=== PATIENT | male | born 1945 | race Caucasian/White ===

== ENCOUNTER 2016-11-23 10:46 | Outpatient (CLI) | payer OTHER | END 2016-11-23 10:47 | disposition home or self-care (01) | DX: M54.2 Cervicalgia (principal); R41.0 Disorientation, unspecified; D72.829 Elevated white blood cell count, unspecified; S00.93XA Contusion of unspecified part of head, initial encounter; W19.XXXA Unspecified fall, initial encounter ==

== ENCOUNTER 2016-11-23 13:10 | Outpatient (CLI) | payer OTHER | END 2016-11-23 13:11 | disposition home or self-care (01) | DX: S09.90XA Unspecified injury of head, initial encounter (principal); M54.2 Cervicalgia; W19.XXXA Unspecified fall, initial encounter; M47.892 Other spondylosis, cervical region; M19.011 Primary osteoarthritis, right shoulder ==

== ENCOUNTER 2016-11-23 18:11 | Inpatient (IN) | payer OTHER ==
[2016-11-23] MEDS ORDERED: SODIUM CHLORIDE 0.9% 1,000 ML IV ONE ×2 (19:24→19:25)
[2016-11-23] MEDS ORDERED: POTASSIUM CHLORIDE 20 MEQ TABLET PO STA (19:25)
[2016-11-23] MEDS ORDERED: ONDANSETRON 4 MG/2 ML VIAL IVP PRN (19:56)
[2016-11-23] MEDS ORDERED: SODIUM CHLORIDE FLUSH 0.9% 10 ML SYRINGE IVP PRN (19:56)
[2016-11-23] MEDS ORDERED: TEMAZEPAM 15 MG CAPSULE PO PRN (19:56)
[2016-11-23] MEDS ORDERED: POTASSIUM CHLORIDE 20 MEQ TABLET PO ONE (19:59)
[2016-11-23] MEDS ORDERED: HYDROcod/ACETAM 5/325 MG TABLET PO PRN (20:03)
[2016-11-23] MEDS ORDERED: ACETAMINOPHEN 325 MG TABLET PO PRN (20:03)
[2016-11-23] MEDS: METOPROLOL SUCCINATE 50 MG TABLET PO SCH (21:55)
[2016-11-23] MEDS: SODIUM CHLORIDE 0.9% 1,000 ML IV SCH (21:55)
[2016-11-23] MEDS: SODIUM CHLORIDE FLUSH 0.9% 10 ML SYRINGE IVP SCH (22:39)
[2016-11-24] MEDS: SODIUM CHLORIDE FLUSH 0.9% 10 ML SYRINGE IVP SCH ×3 (05:04→20:05)
[2016-11-24] MEDS: ALLOPURINOL 100 MG TABLET PO SCH (08:09)
[2016-11-24] MEDS: ATORVASTATIN 40 MG TABLET PO SCH (08:09)
[2016-11-24] MEDS: LORATADINE 10 MG TABLET PO SCH (08:10)
[2016-11-24] MEDS: POLYETHYLENE GLYCOL 3350 17 GM PACKET PO SCH (08:10)
[2016-11-24] MEDS: SODIUM CHLORIDE 0.9% 1,000 ML IV SCH (08:10)
[2016-11-24] MEDS: METOPROLOL SUCCINATE 50 MG TABLET PO SCH ×2 (08:10→20:05)
[2016-11-24] MEDS ORDERED: MAGNESIUM SULFATE 1 GM in SODIUM CHLORIDE 0.9% 50 ML IV ONE (12:10)
[2016-11-24] MEDS ORDERED: POTASSIUM CHLORIDE 20 MEQ TABLET PO STA (12:11)
[2016-11-24] MEDS: POTASSIUM CHLORIDE 20 MEQ TABLET PO STA ×2 (13:21→13:23)
[2016-11-25] MEDS: SODIUM CHLORIDE 0.9% 1,000 ML IV SCH ×2 (04:47→06:02)
[2016-11-25] MEDS: SODIUM CHLORIDE FLUSH 0.9% 10 ML SYRINGE IVP SCH ×2 (04:47→07:35)
[2016-11-25] MEDS: ALLOPURINOL 100 MG TABLET PO SCH (07:34)
[2016-11-25] MEDS: ATORVASTATIN 40 MG TABLET PO SCH (07:34)
[2016-11-25] MEDS: POLYETHYLENE GLYCOL 3350 17 GM PACKET PO SCH ×2 (07:35→07:44)
[2016-11-25] MEDS: LORATADINE 10 MG TABLET PO SCH (07:35)
[2016-11-25] MEDS: METOPROLOL SUCCINATE 50 MG TABLET PO SCH (07:35)
[2016-11-25] MEDS ORDERED: MULTIVITAMIN 10 ML, FOLIC ACID INJ 1 MG, THIAMINE INJ 100 MG, MAGNESIUM SULFATE 2 GM in... IV SCH ×5 (09:00)
== END 2016-11-25 10:55 | disposition home or self-care (01) | DRG 565 ==
DX: T79.6XXA Traumatic ischemia of muscle, initial encounter (principal); N17.9 Acute kidney failure, unspecified; I11.9 Hypertensive heart disease without heart failure; F10.10 Alcohol abuse, uncomplicated; I25.10 Atherosclerotic heart disease of native coronary artery without angina pectoris; S09.90XA Unspecified injury of head, initial encounter; S01.81XA Laceration without foreign body of other part of head, initial encounter; S61.411A Laceration without foreign body of right hand, initial encounter; W01.0XXA Fall on same level from slipping, tripping and stumbling without subsequent striking against object, initial encounter; T14.90 Injury, unspecified; Y93.89 Activity, other specified; Y92.015 Private garage of single-family (private) house as the place of occurrence of the external cause; Y99.8 Other external cause status; R35.1 Nocturia; E78.5 Hyperlipidemia, unspecified; Z95.5 Presence of coronary angioplasty implant and graft; Z87.891 Personal history of nicotine dependence; I25.2 Old myocardial infarction; Z95.0 Presence of cardiac pacemaker; Z87.820 Personal history of traumatic brain injury; S00.93XA Contusion of unspecified part of head, initial encounter; M54.2 Cervicalgia; R41.0 Disorientation, unspecified; D72.829 Elevated white blood cell count, unspecified

== ENCOUNTER 2016-11-28 16:03 | Outpatient (CLI) | payer OTHER | END 2016-11-28 16:04 | DX: M62.82 Rhabdomyolysis (principal); E87.6 Hypokalemia; N18.9 Chronic kidney disease, unspecified ==

== ENCOUNTER 2018-09-02 08:00 | Outpatient (CLI) | payer OTHER ==
[2018-09-02 11:30] LABS: BASOPHILS # (AUTO) 0.1 10^3/uL (0.0-0.1); BASOPHILS % (AUTO) 0.7 %; EOSINOPHILS # (AUTO) 0.5 10^3/uL (0.0-0.7); EOSINOPHILS % (AUTO) 5.3 %; HGB - HEMOGLOBIN 15.5 g/dL (14.0-18.0); LYMPHOCYTES # (AUTO) 1.8 10^3/uL (1.5-3.5); LYMPHOCYTES % (AUTO) 20.1 %; MEAN CORPUSCULAR HEMOGLOBIN 34.7 pg (27.0-31.0); MEAN CORPUSCULAR HGB CONC 34.4 g/dL (32.0-36.0); MEAN CORPUSCULAR VOLUME 100.8 fL (80.0-94.0); MEAN PLATELET VOLUME 10.3 fL (7.4-11.4); MONOCYTES # (AUTO) 0.6 10^3/uL (0.0-1.0); NEUTROPHILS # (AUTO) 5.8 10^3/uL (1.5-6.6); NEUTROPHILS % (AUTO) 66.9 %; PLT - PLATELET COUNT 207 10^3/uL (130-450); RED BLOOD COUNT 4.46 10^6/uL (4.70-6.10); RED CELL DISTRIBUTION WIDTH 15.2 % (12.0-15.0); WHITE BLOOD COUNT 8.8 x10^3/uL (4.8-10.8)
[2018-09-02 11:47] LABS: ALBUMIN 3.9 g/dL (3.2-5.5); ALBUMIN/GLOBULIN RATIO 1.1 (1.0-2.2); ALKALINE PHOSPHATASE 59 IU/L (42-121); ALT ALANINE AMINOTRANSFERASE 27 IU/L (10-60); AST ASPARTATE AMINOTRANSFERASE 34 IU/L (10-42); BILIRUBIN,TOTAL 1.5 mg/dL (0.2-1.0); BUN - BLOOD UREA NITROGEN 16 mg/dL (6-20); CALCIUM 8.6 mg/dL (8.5-10.3); CARBON DIOXIDE - CO2 29 mmol/L (21-32); CHLORIDE 100 mmol/L (101-111); CHOL/HDL RATIO 3.9 (<5.0); CHOLESTEROL 181 mg/dL; GFR - MDRD 73 (>89); GLUCOSE 106 mg/dL (70-100); HDL CHOLESTEROL 47 mg/dL; LDL CHOLESTEROL,CALCULATED 95 mg/dL; SODIUM 139 mmol/L (135-145); TOTAL PROTEIN 7.3 g/dL (6.7-8.2); URIC ACID 10.2 mg/dL (2.6-7.2); VLDL CHOLESTEROL 39 mg/dL
[2018-09-02 12:31] LABS: HB2 TOTAL 16.1 g/dL; HEMOGLOBIN A1C 0.62 g/dL; HEMOGLOBIN A1C % 5.7 % (4.6-6.2)
== END 2018-09-02 23:59 | disposition home or self-care (01) ==
LOC: LAB.R 08:00
PROVIDERS: ATTEND Internal Medicine
DX: R41.89 Other symptoms and signs involving cognitive functions and awareness (principal); E78.5 Hyperlipidemia, unspecified; E88.81 Metabolic syndrome and other insulin resistance; M10.9 Gout, unspecified; I25.10 Atherosclerotic heart disease of native coronary artery without angina pectoris; Z12.5 Encounter for screening for malignant neoplasm of prostate; Z79.899 Other long term (current) drug therapy
CPT/HCPCS: 80053; 80061; 83036; 83721; 84153; 84550; 85025

== ENCOUNTER 2018-10-03 14:11 | Outpatient (CLI) | payer OTHER | END 2018-10-03 14:12 | disposition critical access hospital (66) | LOC: EMS 14:11 | PROVIDERS: ATTEND Surgery | DX: S01.91XA Laceration without foreign body of unspecified part of head, initial encounter (principal); W18.39XA Other fall on same level, initial encounter; Y93.89 Activity, other specified; Y92.512 Supermarket, store or market as the place of occurrence of the external cause | CPT/HCPCS: A0425; A0429 ==

== ENCOUNTER 2018-10-03 14:26 | Emergency (ER) | payer OTHER ==
[2018-10-03] MEDS ORDERED: LIDOCAINE-EPINEPH-TETRACAINE 3 ML SYRINGE TOP STA (14:32)
[2018-10-03] MEDS ORDERED: TETANUS/DIPHTHERIA/PERTUSSIS 0.5 ML SYRINGE IM ONE (14:32)
--- NOTE | 2018-10-03 14:36 | ED Physician Documentation ---
PD HPI Fall - Stated complaint Stated Complaint: FALL - History obtained from History obtained from: Patient - History of Present Illness Mechanism of injury: Tripped, Slipped Fall distance: Standing position Timing - onset: Today Injury(ies) location: Head, Neck. No: Face, Ear, Chest, Abdomen, Back, Right Upper Extremity, Left Uppper Extremity, Right Lower Extremity, Left Lower Extremity, Right Hand, Left Hand, Right Foot, Left Foot Severity Comments: moderate Quality of pain: Pain, Throbbing Associated symptoms: Neck pain. No: LOC, AMS, Amnesia, Seizures, Ear drainage, Nasal drainage, Weakness, Paresthesias, Nausea / vomiting Symptoms improve with: Rest Worsens with: Movement Contributing factors: Anticoagulated Similar symptoms before: No diagnosis Recently seen: Not recently seen - Additional information Additional information: 73-year-old male tripped and slipped striking the back of his head and sustained a small laceration on the back of his head. The patient denies loss of consciousness or injury to his chest, abdomen, pelvis or extremities. Review of Systems Constitutional: denies: Fever, Fatigue Eyes: denies: Photophobia, Discharge Ears: denies: Ear pain Nose: denies: Congestion Throat: denies: Sore throat Cardiac: denies: Chest pain / pressure Respiratory: denies: Cough GI: denies: Abdominal Pain : denies: Dysuria Skin: reports: Laceration (s) Musculoskeletal: reports: Neck pain Neurologic: reports: Head injury. denies: Generalized weakness, Confused PD PAST MEDICAL HISTORY - Past Medical History Cardiovascular: Hypertension, High cholesterol, Coronary artery disease, [place] - Past Surgical History Past Surgical History: Yes General: Appendectomy Cardiovascular: Coronary stent, Pacemaker - Present Medications Home Medications: Ambulatory Orders Medication Instructions Recorded Confirmed Aspirin [Aspir-Eleanor] 325 mg PO DAILY 05/05/13 11/24/16 Atorvastatin Calcium [Lipitor] 80 mg PO DAILY 05/05/13 11/24/16 Metoprolol Tartrate [Lopressor] 25 mg PO BID 11/24/16 11/24/16 Thiamine [Vitamin B-1] 100 mg PO DAILY #1 bottle 11/25/16 hydroCHLOROthiazide 10/03/18 [Hydrochlorothiazide] - Allergies Allergies/Adverse Reactions: Allergies Allergy/AdvReac Type Severity Reaction Status Date / Time JEFFREY Inhibitors Allergy Intermediate Rash Verified 11/23/16 18:25 enalapril [Enalapril] Allergy Rash Verified 11/23/16 18:25 - Social History Does the pt smoke?: No Smoking Status: Never smoker Does the pt drink ETOH?: Yes Does the pt have substance abuse?: No - Immunizations Immunizations are current?: Yes PD ED PE NORMAL - General General: Alert and oriented X 3, No acute distress - HEENT HEENT: PERRL, EOMI, Ears normal - Neck Neck: Other (Tenderness) - Cardiac Cardiac: RRR, Strong equal pulses - Respiratory Respiratory: No respiratory distress, Clear bilaterally - Abdomen Abdomen: Soft, Non tender - Derm Derm: Normal color - Extremities Extremities: No deformity, No tenderness to palpate, Normal ROM s pain - Neuro Neuro: Alert and oriented X 3, educational technology specialist 2-12 intact, No motor deficit, Normal speech - Psych Psych: Normal mood PD ED PE EXPANDED - HEENT HEENT: Head injury HEENT Visual: 1 - laceration Results - Vitals Vitals: Vital Signs - 24 hr 10/03/18 14:28 Temperature 36.4 C L Heart Rate 69 Respiratory 14 Rate O2 Saturation 95 Oxygen O2 Source Room air - Labs Labs: Laboratory Tests 10/03/18 10/03/18 14:45 14:45 PT 11.8 INR 1.1 Sodium 139 Potassium 3.4 L Chloride 101 Carbon Dioxide 26 Anion Gap 12.0 BUN 15 Creatinine 1.1 Estimated GFR (MDRD) 65 L Glucose 113 H Calcium 8.6 - Rads (name of study) CT head/neck Radiology: Final report received, See rad report (IMPRESSION: Degenerative changes. No acute disease. IMPRESSION: Generalized age-related cortical atrophic changes without evidence of acute intracranial abnormality. ) Procedures - Laceration (location) Scalp Length in cm: 1 Wound type: Linear Neurovascular status: Sensory intact, Motor intact, Vascular intact Anesthesia: LET Wound Preparation: Wound explored, To the base. No: FB identified, FB removed Skin layer closure: Erick Other: Patient tolerated well, No complications, Tetanus booster given Complexity: Simple PD MEDICAL DECISION MAKING - ED course ED course: No skull fracture or intracranial hemorrhage or cervical spine fracture and the patient appears appropriate for discharge home at this point and his laceration was repaired with erick. The patient We will have his sutures removed in 7 days. The patient will return to the emergency department for any worsening or any concerns Departure - Departure Disposition: 01 Home, Self Care Clinical Impression: Head injury Qualifiers: Encounter type: initial encounter Qualified Code(s): S09.90XA - Unspecified injury of head, initial encounter Scalp laceration Qualifiers: Encounter type: initial encounter Qualified Code(s): S01.01XA - Laceration without foreign body of scalp, initial encounter Cervical strain, acute Qualifiers: Encounter type: initial encounter Qualified Code(s): S16.1XXA - Strain of muscle, fascia and tendon at neck level, initial encounter Condition: Good Instructions: ED Head Injury Closed, ED Laceration All Follow-Up: James Millan MD [Primary Care Provider] - Within 1 week (Please have your erick removed in 7 days) Comments: Please return to the emergency department for any worsening or any concerns
[2018-10-03 14:57] LABS: INR 1.1 (0.8-1.2); PT - PROTHROMBIN TIME 11.8 secs (9.9-12.6)
[2018-10-03 14:58] LABS: CALCIUM 8.6 mg/dL (8.5-10.3); CREATININE 1.1 mg/dL (0.6-1.2)
--- NOTE | 2018-10-03 15:30 | CT Report ---
Reason: fall, head injury Procedure Date: 10/03/2018 Accession Number: [id number] / [id number] Procedure: CT - Head W/O CPT Code: FULL RESULT: EXAM: CT HEAD EXAM DATE: 10/03/2018 03:03 PM. CLINICAL HISTORY: Fall, head injury. COMPARISON: HEAD W/O 11/23/2016 1:36 PM. TECHNIQUE: Multiaxial CT images were obtained from the foramen magnum to the vertex. Reformats: Sagittal and coronal. IV contrast: None. In accordance with CT protocol optimization, one or more of the following dose reduction techniques were utilized for this exam: automated exposure control, adjustment of mA and/or KV based on patient size, or use of iterative reconstructive technique. FINDINGS: Parenchyma: No intraparenchymal hemorrhage. No evidence of mass, midline shift, or CT findings of acute infarction. Campbell-white differentiation is distinct. Diffuse chronic microangiopathic white matter changes. Extraaxial Spaces: Normal for age. No subdural or epidural collections. Ventricles: The ventricles and cortical sulci are enlarged, consistent with age-related tissue loss. Sinuses and orbits: Imaged paranasal sinuses, orbits, and mastoids show no significant abnormality. Bones: Old frontal emy holes. Otherwise unremarkable. Other: None. IMPRESSION: Generalized age-related cortical atrophic changes without evidence of acute intracranial abnormality. RADIA
--- NOTE | 2018-10-03 15:34 | CT Report ---
Reason: fall, head injury, neck injury Procedure Date: 10/03/2018 Accession Number: [id number] / [id number] Procedure: CT - Cervical Spine W/O CPT Code: FULL RESULT: EXAM: CT CERVICAL SPINE WITHOUT CONTRAST DATE: 10/03/2018 03:03 PM. HISTORY: Fall, head injury, neck injury. COMPARISONS: CERVICAL SPINE W/O 11/23/2016 1:39 PM. TECHNIQUE: Thin-section axial images were acquired of the cervical spine without contrast. Post-processing: Coronal and sagittal reformats. Other: None. In accordance with CT protocol optimization, one or more of the following dose reduction techniques were utilized for this exam: automated exposure control, adjustment of mA and/or KV based on patient size, or use of iterative reconstructive technique. FINDINGS: Alignment: Minimal scoliosis. No listhesis. Bones: No fracture or bone lesion. Interspace Levels/Facets: Disk space narrowing at C6-C7. Other disk spaces well preserved. Degenerative changes most marked at C2-C3 on the left, C3-C4 on the right, and C5-C6 bilaterally. Musculature: Unremarkable. Other: The paravertebral and prevertebral soft tissues are unremarkable. The lung apices are clear. IMPRESSION: Degenerative changes. No acute disease. RADIA
[2018-10-03 16:04] VITALS: BP 135/96
== END 2018-10-03 16:30 | disposition home or self-care (01) ==
LOC: EDUNIT# → ED 14:26
DX: S01.01XA Laceration without foreign body of scalp, initial encounter (principal); S09.90XA Unspecified injury of head, initial encounter; S16.1XXA Strain of muscle, fascia and tendon at neck level, initial encounter; W01.198A Fall on same level from slipping, tripping and stumbling with subsequent striking against other object, initial encounter; Y92.512 Supermarket, store or market as the place of occurrence of the external cause; I10 Essential (primary) hypertension; E78.00 Pure hypercholesterolemia, unspecified; I25.10 Atherosclerotic heart disease of native coronary artery without angina pectoris; Z95.5 Presence of coronary angioplasty implant and graft; I25.2 Old myocardial infarction; Z95.0 Presence of cardiac pacemaker; Z79.82 Long term (current) use of aspirin
CPT/HCPCS: 12001; 36415; 70450; 72125; 80048; 85610; 90471; 99283

== ENCOUNTER 2019-03-08 16:53 | Emergency (ER) | payer OTHER ==
[2019-03-08] MEDS ORDERED: LIDOCAINE-EPINEPH-TETRACAINE 3 ML SYRINGE TOP STA (17:11)
--- NOTE | 2019-03-08 17:15 | ED Physician Documentation ---
PD HPI HEAD INJURY - Stated complaint Stated Complaint: FACE LAC/GLF - Chief complaint Chief Complaint: Laceration - History obtained from History obtained from: Patient, Family () - History of Present Illness Mechanism of head injury: Fell (73-year-old gentleman with history of traumatic brain injury treated at [facility] in 2013 with bilateral blurred bur holes was drinking today. He slipped and fell and hit his face on the wall. No clear loss of consciousness. He has scrapes on the face and a scrape on the right wrist. He did not know his last tetanus shot but review of the chart shows that it was in September of this year. When asked him how much he drank today he says "all of it.") Review of Systems Ten Systems: 10 systems reviewed and negative Constitutional: reports: Reviewed and negative Nose: reports: Reviewed and negative Throat: reports: Reviewed and negative Cardiac: reports: Reviewed and negative PD PAST MEDICAL HISTORY - Past Medical History Past Medical History: Yes Cardiovascular: Hypertension, High cholesterol, Coronary artery disease, [place] Respiratory: None Neuro: Other Endocrine/Autoimmune: None GI: None : None HEENT: Chronic hearing loss Psych: None Musculoskeletal: None Derm: None Other Past Medical History: TBI - Past Surgical History Past Surgical History: Yes General: Appendectomy Cardiovascular: Coronary stent, Pacemaker - Present Medications Home Medications: Ambulatory Orders Medication Instructions Recorded Confirmed Aspirin [Aspir-Eleanor] 325 mg PO DAILY 05/05/13 03/08/19 Atorvastatin Calcium [Lipitor] 80 mg PO DAILY 05/05/13 03/08/19 Metoprolol Tartrate [Lopressor] 25 mg PO BID 11/24/16 03/08/19 hydroCHLOROthiazide 10/03/18 [Hydrochlorothiazide] Thiamine [Vitamin B-1] 03/08/19 - Allergies Allergies/Adverse Reactions: Allergies Allergy/AdvReac Type Severity Reaction Status Date / Time JEFFREY Inhibitors Allergy Intermediate Rash Verified 03/08/19 17:07 enalapril [Enalapril] Allergy Rash Verified 03/08/19 17:07 - Social History Does the pt smoke?: No Smoking Status: Never smoker Does the pt drink ETOH?: Yes Does the pt have substance abuse?: No - Immunizations Immunizations are current?: Yes - POLST Patient has POLST: No PD ED PE NORMAL - Vitals Vital signs reviewed: Yes - General General: Alert and oriented X 3, No acute distress, Other (Moderately intoxicated with slow slurred speech and smells of alcohol) - HEENT HEENT: PERRL, EOMI (with nystgmus), Other (Significant abrasions over the right side of the face and forehead especially under the right eye where there is a little flap that needs to be closed.) - Neck Neck: Supple, no meningeal sign, No bony TTP - Cardiac Cardiac: RRR, No murmur - Respiratory Respiratory: No respiratory distress, Clear bilaterally - Abdomen Abdomen: Non tender - Back Back: No CVA TTP, No spinal TTP - Derm Derm: Normal color, Warm and dry - Extremities Extremities: Other (There is a shallow abrasion over the anterior right wrist without bony tenderness or limited range of motion) - Neuro Neuro: Alert and oriented X 3, No motor deficit, No sensory deficit, Normal speech Eye Opening: Spontaneous Motor: Obeys Commands Verbal: Oriented GCS Score: 15 - Psych Psych: Normal mood Results - Vitals Vitals: Vital Signs - 24 hr 03/08/19 17:01 Temperature 36.6 C Heart Rate 55 L Respiratory 17 Rate Blood Pressure 163/88 H O2 Saturation 96 Oxygen O2 Source Room air - Labs Labs: Laboratory Tests 03/08/19 03/08/19 03/08/19 17:20 17:20 17:20 WBC 8.4 RBC 5.26 Hgb 16.4 Hct 51.4 MCV 97.7 H MCH 31.2 H MCHC 31.9 L RDW 14.5 Plt Count 177 MPV 10.6 Neut # (Auto) 4.5 Lymph # (Auto) 2.5 [place] # (Auto) 0.8 Eos # (Auto) 0.4 Baso # (Auto) 0.1 Absolute Nucleated RBC 0.00 Nucleated RBC % 0.0 PT 11.9 INR 1.1 Sodium 138 Potassium 3.8 Chloride 102 Carbon Dioxide 23 Anion Gap 13.0 BUN 17 Creatinine 1.0 Estimated GFR (MDRD) 73 L Glucose 91 Calcium 8.8 Ethyl Alcohol 110.7 - Rads (name of study) Ct Head/face/Cspine Radiology: EMP read contemporaneously (Head and C-spine show atrophy and degenerative changes. Facial CT shows a subtle nondisplaced inferior orbital wall fracture without contents) Procedures - Laceration (location) R infraorbital Length in cm: 1 Wound type: Stellate, Irregular, Flap Anesthesia: LET Wound Preparation: Irrigated copiously NS, Debrided moderately Skin layer closure: Dermabond Other: Tetanus UTD Complexity: Simple PD MEDICAL DECISION MAKING - ED course Complexity details: d/w patient, d/w family (We discussed that he is had several injuries most of which seem alcohol-related. He was uninterested in discussing this. He did not want resources for alcohol rehab. When I asked him if he drank daily he said "does a bear shit in the trejo?") ED course: 73-year-old gentleman with history of alcohol-related injuries. He fell today and has facial abrasions, one shallow laceration which was closed with skin glue. He was counseled to quit drinking but did not seem very receptive to this conversation. His also understands that the problem but has not been able to make much headway as he is a closet drinker. The CT results were discussed by phone with Dr. Moises Dixon and he will follow-up in the office with him with a copy of his CAT scan on CD. Patient had no further concerns. He was counseled on wound care. Departure - Departure Disposition: 01 Home, Self Care Clinical Impression: Abrasion, Laceration, Alcohol abuse, Fall from ground level Head injury Qualifiers: Encounter type: initial encounter Qualified Code(s): S09.90XA - Unspecified injury of head, initial encounter Cervical strain, acute Qualifiers: Encounter type: initial encounter Qualified Code(s): S16.1XXA - Strain of muscle, fascia and tendon at neck level, initial encounter Orbital floor fracture Qualifiers: Encounter type: initial encounter Fracture type: closed Laterality: right Qualified Code(s): S02.31XA - Fracture of orbital floor, right side, initial encounter for closed fracture Condition: Good Record reviewed to determine appropriate education?: Yes Health Concerns: alcohol abuse, injuries Plan of Treatment: wound care, stop alcohol, followup with facial surgeon Care Goals: wound healing Assessment: as above Instructions: ED Abrasion, ED Laceration Facial Skin Glue, ED Alcohol Abuse Follow-Up: MOISES DIXON [Physician No Access] - Within 3 Days Comments: Follow-up with the oral surgeon listed on this form, call tomorrow for an appointment. You should follow-up by the midweek. Take the copy of the CAT scan on CD with you to that appointment. Return for new worsening symptoms. There is an area under your right eye that has skin glue on it. You can wash all of the abrasions with soap and water and keep them moist with Vaseline except try to avoid Vaseline on the area with the skin glue. Do not pick at it. Return for new or worsening symptoms. As discussed I strongly encourage you to quit drinking alcohol. You have had several serious injuries that were alcohol related.
[2019-03-08 17:26] LABS: BASOPHILS # (AUTO) 0.1 10^3/uL (0.0-0.1); BASOPHILS % (AUTO) 0.8 %; EOSINOPHILS # (AUTO) 0.4 10^3/uL (0.0-0.7); EOSINOPHILS % (AUTO) 5.1 %; HGB - HEMOGLOBIN 16.4 g/dL (14.0-18.0); LYMPHOCYTES # (AUTO) 2.5 10^3/uL (1.5-3.5); LYMPHOCYTES % (AUTO) 29.5 %; MEAN CORPUSCULAR HEMOGLOBIN 31.2 pg (27.0-31.0); MEAN CORPUSCULAR HGB CONC 31.9 g/dL (32.0-36.0); MEAN CORPUSCULAR VOLUME 97.7 fL (80.0-94.0); MEAN PLATELET VOLUME 10.6 fL (7.4-11.4); MONOCYTES # (AUTO) 0.8 10^3/uL (0.0-1.0); MONOCYTES % (AUTO) 9.7 %; NEUTROPHILS # (AUTO) 4.5 10^3/uL (1.5-6.6); NEUTROPHILS % (AUTO) 54.3 %; PLT - PLATELET COUNT 177 10^3/uL (130-450); RED BLOOD COUNT 5.26 10^6/uL (4.70-6.10); RED CELL DISTRIBUTION WIDTH 14.5 % (12.0-15.0); WHITE BLOOD COUNT 8.4 x10^3/uL (4.8-10.8)
[2019-03-08 17:35] LABS: CALCIUM 8.8 mg/dL (8.5-10.3)
[2019-03-08 17:47] LABS: INR 1.1 (0.8-1.2); PT - PROTHROMBIN TIME 11.9 secs (9.9-12.6)
--- NOTE | 2019-03-08 17:59 | CT Report ---
Reason: head inj Procedure Date: 03/08/2019 Accession Number: [id number] / [id number] Procedure: CT - HEAD WO CPT Code: FULL RESULT: EXAM: CT HEAD EXAM DATE: 03/08/2019 05:42 PM. CLINICAL HISTORY: Head inj. COMPARISON: CERVICAL SPINE W/O 10/03/2018 2:50 PM HEAD W/O 11/23/2016 1:36 PM. TECHNIQUE: Multiaxial CT images were obtained from the foramen magnum to the vertex. Reformats: Sagittal and coronal. IV contrast: None. In accordance with CT protocol optimization, one or more of the following dose reduction techniques were utilized for this exam: automated exposure control, adjustment of mA and/or KV based on patient size, or use of iterative reconstructive technique. FINDINGS: Parenchyma: There is generalized parenchymal volume loss. Negative for intracranial acute hemorrhage. There is no midline shift or mass-effect. Extraaxial Spaces: No abnormal subdural or epidural hemorrhage. Ventricles: Ventricles appear enlarged but without significant interval change. Sinuses and Orbits: Imaged paranasal sinuses, orbits, and mastoids show no significant abnormality. Bones: There are findings of previous craniotomy emy holes. There is no acute fracture. Other: None. IMPRESSION: 1. 1. Negative for acute hemorrhage or mass-effect. 2. Chronic generalized cerebral volume loss. RADIA
--- NOTE | 2019-03-08 18:06 | CT Report ---
Reason: head inj Procedure Date: 03/08/2019 Accession Number: [id number] / [id number] Procedure: CT - CERVICAL SPINE WO CPT Code: FULL RESULT: EXAM: CT CERVICAL SPINE WITHOUT CONTRAST DATE: 03/08/2019 05:42 PM. HISTORY: Head inj. COMPARISONS: CERVICAL SPINE W/O 10/03/2018 2:50 PM. TECHNIQUE: Thin-section axial images were acquired of the cervical spine without contrast. Post-processing: Coronal and sagittal reformats. Other: None. In accordance with CT protocol optimization, one or more of the following dose reduction techniques were utilized for this exam: automated exposure control, adjustment of mA and/or KV based on patient size, or use of iterative reconstructive technique. FINDINGS: Alignment: There is straightening of normal cervical lordosis. No subluxation or scoliosis. Bones: There is an old healed right clavicle fracture. No acute fracture of the cervical spine. Interspace Levels/Facets: There is severe disk height loss at C6-C7 with disk calcification. There is mild to moderate disk height loss at C4-C5 and C5-C6. There is multilevel facet joint space narrowing with spurring present. No critical central spinal canal stenosis. Musculature: Musculature appears symmetric. Other: No apical pneumothorax. Trachea is midline. IMPRESSION: 1. Negative for an acute fracture or subluxation of the cervical spine. 2. Chronic severe disk height loss at C6-C7 with possible fusion appears unchanged. Multilevel facet chronic degenerative disease. RADIA
--- NOTE | 2019-03-08 18:15 | CT Report ---
Reason: head inj Procedure Date: 03/08/2019 Accession Number: [id number] / [id number] Procedure: CT - MAXILLOFACIAL WO CPT Code: FULL RESULT: EXAM: CT MAXILLOFACIAL WITHOUT CONTRAST EXAM DATE: 03/08/2019 05:42 PM. CLINICAL HISTORY: Head inj. COMPARISONS: CERVICAL SPINE W/O 10/03/2018 2:50 PM HEAD W/O 10/03/2018 2:50 PM HEAD W/O 03/08/2019 5:31 PM HEAD W/O 11/23/2016 1:36 PM. TECHNIQUE: Thin-section axial images were acquired of the face without contrast. Post-processing: Coronal and sagittal reformats. Other: None. In accordance with CT protocol optimization, one or more of the following dose reduction techniques were utilized for this exam: automated exposure control, adjustment of mA and/or KV based on patient size, or use of iterative reconstructive technique. FINDINGS: Soft Tissue: No hematoma or fluid collection visualized. There is right periorbital superficial edema. Orbits: No abnormal orbital hematoma or fluid collection. No orbital herniation. Globes appear symmetric. Bones: There is a nondisplaced fracture of the right orbital floor. There is no herniation of orbital contents. There is mild mucosal thickening in the adjacent superior wall of the right maxillary sinus. The orbital floor was not seen on previous head CTs. Temporomandibular Joints: The temporomandibular joints are symmetric and normally located. Sinuses: Normal. No mucosal thickening or fluid levels. Other: There is anterior right greater than left dural thickening, probably IMPRESSION: 1. Subtle nondisplaced right orbital floor fracture. Not seen on previous head CTs. This is a subtle fracture which could be difficult to visualize on routine head CT, however the appearance is more suggestive of acute fracture. RADIA
[2019-03-08 18:30] VITALS: BP 140/70
== END 2019-03-08 18:41 | disposition home or self-care (01) ==
LOC: ED 16:53
DX: S02.31XA Fracture of orbital floor, right side, initial encounter for closed fracture (principal); S01.111A Laceration without foreign body of right eyelid and periocular area, initial encounter; S60.811A Abrasion of right wrist, initial encounter; S00.81XA Abrasion of other part of head, initial encounter; S16.1XXA Strain of muscle, fascia and tendon at neck level, initial encounter; S09.90XA Unspecified injury of head, initial encounter; W01.198A Fall on same level from slipping, tripping and stumbling with subsequent striking against other object, initial encounter; Y93.01 Activity, walking, marching and hiking; Y92.008 Other place in unspecified non-institutional (private) residence as the place of occurrence of the external cause; F10.120 Alcohol abuse with intoxication, uncomplicated; M50.30 Other cervical disc degeneration, unspecified cervical region; I10 Essential (primary) hypertension; Z79.82 Long term (current) use of aspirin; Z87.820 Personal history of traumatic brain injury
CPT/HCPCS: 12011; 36415; 70450; 70486; 72125; 80048; 80320; 85025; 85610; 99283

== ENCOUNTER 2019-03-09 17:17 | Outpatient (CLI) | payer OTHER ==
[2019-03-09 17:52] LABS: CALCIUM 9.4 mg/dL (8.5-10.3); CREATININE 1.3 mg/dL (0.6-1.2)
== END 2019-03-09 17:18 | disposition home or self-care (01) ==
LOC: LAB 17:17
PROVIDERS: ATTEND Family Medicine
DX: I10 Essential (primary) hypertension (principal)
CPT/HCPCS: 36415; 80048

== ENCOUNTER 2019-04-22 12:33 | Outpatient (CLI) | payer OTHER ==
[2019-04-22 12:48] LABS: BASOPHILS # (AUTO) 0.1 10^3/uL (0.0-0.1); BASOPHILS % (AUTO) 0.8 %; EOSINOPHILS # (AUTO) 0.4 10^3/uL (0.0-0.7); EOSINOPHILS % (AUTO) 4.8 %; HGB - HEMOGLOBIN 16.1 g/dL (14.0-18.0); LYMPHOCYTES # (AUTO) 1.6 10^3/uL (1.5-3.5); LYMPHOCYTES % (AUTO) 18.6 %; MEAN CORPUSCULAR HEMOGLOBIN 31.8 pg (27.0-31.0); MEAN CORPUSCULAR HGB CONC 32.7 g/dL (32.0-36.0); MEAN PLATELET VOLUME 10.8 fL (7.4-11.4); MONOCYTES # (AUTO) 0.9 10^3/uL (0.0-1.0); MONOCYTES % (AUTO) 10.1 %; NEUTROPHILS # (AUTO) 5.5 10^3/uL (1.5-6.6); NEUTROPHILS % (AUTO) 65.2 %; PLT - PLATELET COUNT 184 10^3/uL (130-450); RED BLOOD COUNT 5.07 10^6/uL (4.70-6.10); RED CELL DISTRIBUTION WIDTH 14.5 % (12.0-15.0); WHITE BLOOD COUNT 8.5 x10^3/uL (4.8-10.8)
[2019-04-22 13:15] LABS: CALCIUM 9.4 mg/dL (8.5-10.3)
== END 2019-04-22 12:34 | disposition home or self-care (01) ==
LOC: LAB 12:33
PROVIDERS: ATTEND Family Medicine
DX: F07.81 Postconcussional syndrome (principal); Z79.899 Other long term (current) drug therapy
CPT/HCPCS: 36415; 80048; 80335; 81599; 85025

== ENCOUNTER 2020-12-12 08:00 | Outpatient (CLI) | payer MEDICARE, BC ==
[2020-12-12 12:34] LABS: BASOPHILS # (AUTO) 0.1 10^3/uL (0.0-0.1); BASOPHILS % (AUTO) 0.5 %; EOSINOPHILS # (AUTO) 0.2 10^3/uL (0.0-0.7); EOSINOPHILS % (AUTO) 2.3 %; HGB - HEMOGLOBIN 16.3 g/dL (14.0-18.0); LYMPHOCYTES # (AUTO) 1.6 10^3/uL (1.5-3.5); LYMPHOCYTES % (AUTO) 16.7 %; MEAN CORPUSCULAR HEMOGLOBIN 31.5 pg (27.0-31.0); MEAN CORPUSCULAR HGB CONC 32.6 g/dL (32.0-36.0); MEAN CORPUSCULAR VOLUME 96.5 fL (80.0-94.0); MEAN PLATELET VOLUME 11.3 fL (7.4-11.4); MONOCYTES # (AUTO) 0.8 10^3/uL (0.0-1.0); MONOCYTES % (AUTO) 8.1 %; NEUTROPHILS # (AUTO) 6.8 10^3/uL (1.5-6.6); NEUTROPHILS % (AUTO) 71.9 %; PLT - PLATELET COUNT 234 10^3/uL (130-450); RED BLOOD COUNT 5.18 10^6/uL (4.70-6.10); RED CELL DISTRIBUTION WIDTH 14.5 % (12.0-15.0); WHITE BLOOD COUNT 9.4 x10^3/uL (4.8-10.8)
[2020-12-12 12:42] LABS: ESTIMATED AVERAGE GLUCOSE 123 mg/dL (70-100); HEMOGLOBIN A1c% 5.9 % (4.27-6.07)
[2020-12-12 12:44] LABS: ALBUMIN 4.1 g/dL (3.2-5.5); ALBUMIN/GLOBULIN RATIO 1.1 (1.0-2.2); ALKALINE PHOSPHATASE 57 IU/L (42-121); ALT ALANINE AMINOTRANSFERASE 23 IU/L (10-60); AST ASPARTATE AMINOTRANSFERASE 24 IU/L (10-42); BILIRUBIN,TOTAL 1.3 mg/dL (0.2-1.0); BUN - BLOOD UREA NITROGEN 17 mg/dL (6-20); CALCIUM 9.8 mg/dL (8.5-10.3); CARBON DIOXIDE - CO2 27 mmol/L (21-32); CHLORIDE 99 mmol/L (101-111); CHOL/HDL RATIO 3.8 (<5.0); CHOLESTEROL 167 mg/dL; CREATININE 1.1 mg/dL (0.6-1.2); GFR - MDRD 65 (>89); GLUCOSE 96 mg/dL (70-100); HDL CHOLESTEROL 44 mg/dL; LDL CHOLESTEROL,CALCULATED 98 mg/dL; LDL/HDL RATIO 2.2 (<3.6); POTASSIUM 4.2 mmol/L (3.5-5.0); SODIUM 139 mmol/L (135-145); TOTAL PROTEIN 7.8 g/dL (6.7-8.2); TRIGLYCERIDES 127 mg/dL; VLDL CHOLESTEROL 25 mg/dL
[2020-12-12 18:17] LABS: THYROID STIMULATING HORMONE 4.26 uIU/mL (0.34-5.60)
== END 2020-12-12 23:59 | disposition home or self-care (01) ==
LOC: LAB.WCP 08:00
PROVIDERS: ATTEND Family Medicine
DX: H26.9 Unspecified cataract (principal); L21.9 Seborrheic dermatitis, unspecified; I10 Essential (primary) hypertension; I45.9 Conduction disorder, unspecified; E88.81 Metabolic syndrome and other insulin resistance; K21.9 Gastro-esophageal reflux disease without esophagitis; R25.1 Tremor, unspecified; F10.10 Alcohol abuse, uncomplicated; E87.6 Hypokalemia; M10.9 Gout, unspecified
CPT/HCPCS: 36415; 80053; 80061; 83036; 83721; 84443; 84550; 85025

== ENCOUNTER 2021-04-07 16:25 | Outpatient (CLI) | payer MEDICARE, BC | END 2021-04-07 16:26 | disposition EMS.NT | LOC: EMS 16:25 | DX: Z04.3 Encounter for examination and observation following other accident (principal) ==

== ENCOUNTER 2021-10-24 16:33 | Outpatient (CLI) | payer MEDICARE, BC | END 2021-10-24 16:34 | disposition left against medical advice (07) | LOC: EMS 16:33 | DX: R26.2 Difficulty in walking, not elsewhere classified (principal); R41.0 Disorientation, unspecified ==

== ENCOUNTER 2022-01-04 15:03 | Outpatient (CLI) | payer MEDICARE, BC | END 2022-01-04 15:04 | disposition left against medical advice (07) | LOC: EMS 15:03 | DX: R26.89 Other abnormalities of gait and mobility (principal) ==

== ENCOUNTER 2022-02-04 12:27 | Outpatient (CLI) | payer MEDICARE, BC | END 2022-02-04 12:28 | disposition left against medical advice (07) | LOC: EMS 12:27 | DX: R40.4 Transient alteration of awareness (principal) ==

== ENCOUNTER 2022-02-04 13:36 | Emergency (ER) | payer MEDICARE, BC ==
[2022-02-04 14:19] LABS: BASOPHILS # (AUTO) 0.1 10^3/uL (0.0-0.1); BASOPHILS % (AUTO) 0.7 %; EOSINOPHILS # (AUTO) 0.4 10^3/uL (0.0-0.7); EOSINOPHILS % (AUTO) 4.9 %; HCT - HEMATOCRIT 48.7 % (42.0-52.0); HGB - HEMOGLOBIN 16.2 g/dL (14.0-18.0); LYMPHOCYTES # (AUTO) 1.7 10^3/uL (1.5-3.5); LYMPHOCYTES % (AUTO) 22.1 %; MEAN CORPUSCULAR HEMOGLOBIN 32.1 pg (27.0-31.0); MEAN CORPUSCULAR HGB CONC 33.3 g/dL (32.0-36.0); MEAN CORPUSCULAR VOLUME 96.6 fL (80.0-94.0); MEAN PLATELET VOLUME 10.2 fL (7.4-11.4); MONOCYTES # (AUTO) 0.6 10^3/uL (0.0-1.0); MONOCYTES % (AUTO) 8.1 %; NEUTROPHILS # (AUTO) 4.8 10^3/uL (1.5-6.6); NEUTROPHILS % (AUTO) 63.8 %; PLT - PLATELET COUNT 192 10^3/uL (130-450); RED BLOOD COUNT 5.04 10^6/uL (4.70-6.10); RED CELL DISTRIBUTION WIDTH 15.3 % (12.0-15.0); WHITE BLOOD COUNT 7.5 x10^3/uL (4.8-10.8)
[2022-02-04 14:44] LABS: ALBUMIN/GLOBULIN RATIO 1.2 (1.0-2.2); BILIRUBIN,TOTAL 1.4 mg/dL (0.2-1.0); CALCIUM 9.1 mg/dL (8.5-10.3); CREATININE 1.1 mg/dL (0.6-1.2); ETOH - ETHANOL 7.9 mg/dL; POTASSIUM 3.8 mmol/L (3.5-5.0); TOTAL PROTEIN 7.3 g/dL (6.7-8.2)
[2022-02-04] MEDS ORDERED: SODIUM CHLORIDE 0.9% 1,000 ML IV STA (15:52)
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
[2022-02-04] MEDS ORDERED: THIAMINE INJ 100 MG, MAGNESIUM SULFATE 2 GM, MULTIVITAMIN 10 ML, FOLIC ACID INJ 1 MG in... IV ONE ×5 (16:04)
--- NOTE | 2022-02-04 16:38 | CT Report ---
PROCEDURE: CT brain without contrast INDICATIONS: Altered mental status TECHNIQUE: Noncontrast 4.5 mm thick angled axial sections acquired from the foramen magnum to the vertex. For r adiation dose reduction, the following was used: automated exposure control, adjustment of mA and/or kV according to patient size. COMPARISON: None. FINDINGS: Image quality: Excellent. CSF spaces: Basal cisterns are patent. No extra-axial fluid collections. Ventricles are slightly pr ominent compared to sulcal widening. Brain: No midline shift. No intracranial masses or hemorrhage. Campbell-white matter interface is norm al. Moderate atrophy and multifocal white matter chronic ischemic change noted. Atherosclerotic vasc ular calcification noted in the cavernous segments of both internal carotid arteries as well as the i ntradural vertebral arteries. Small right frontal old cortical infarct. Old right caudate lacunar inf arct. Skull and face: Calvarium and visualized facial bones are intact, other than old bifrontal emy hole s. Sinuses: Visualized sinuses and mastoids are clear. IMPRESSION: 1. [<Moderate >]ventriculomegaly slightly out of proportion to amount of cerebral atrophy, stable fro m prior. Differential would include centralized atrophy and normal pressure hydrocephalus. Consider f urther evaluation if clinically relevant. 2. Atrophy and multifocal chronic ischemic change without acute hemorrhage or mass effect. 3. 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
[2022-02-04 17:32] VITALS: BP 181/99
== END 2022-02-04 17:41 | disposition home or self-care (01) ==
LOC: ED 13:36
DX: E86.0 Dehydration (principal)
CPT/HCPCS: 36415; 70450; 80053; 83690; 84484; 85025; 93005; 96365; 99284; G0480; J3411; 80320

== ENCOUNTER 2022-02-23 16:02 | Outpatient (CLI) | payer MEDICARE, BC | END 2022-02-23 16:03 | disposition left against medical advice (07) | LOC: EMS 16:02 | DX: Z03.89 Encounter for observation for other suspected diseases and conditions ruled out (principal) ==

== ENCOUNTER 2022-06-15 16:26 | Outpatient (CLI) | payer MEDICARE, BC | END 2022-06-15 16:27 | disposition left against medical advice (07) | LOC: EMS 16:26 | DX: Z03.89 Encounter for observation for other suspected diseases and conditions ruled out (principal) ==

== ENCOUNTER 2022-08-08 15:00 | Outpatient (CLI) | payer MEDICARE, BC | END 2022-08-08 15:01 | disposition EMS.NT | LOC: EMS 15:00 | DX: R53.1 Weakness (principal) ==

== ENCOUNTER 2022-11-06 18:34 | Outpatient (CLI) | payer BC, MEDICARE | END 2022-11-06 23:59 | disposition EMS.NT | LOC: EMS 18:34 | DX: Z03.89 Encounter for observation for other suspected diseases and conditions ruled out (principal) ==

== ENCOUNTER 2022-12-09 18:54 | Outpatient (CLI) | payer MEDICARE | END 2022-12-09 18:55 | disposition EMS.NT | LOC: EMS 18:54 | DX: Z03.89 Encounter for observation for other suspected diseases and conditions ruled out (principal) ==

== ENCOUNTER 2022-12-28 17:35 | Outpatient (CLI) | payer MEDICARE | END 2022-12-28 23:59 | disposition critical access hospital (66) | LOC: EMS 17:35 | DX: S01.01XA Laceration without foreign body of scalp, initial encounter (principal); R41.82 Altered mental status, unspecified; R29.6 Repeated falls; W01.0XXA Fall on same level from slipping, tripping and stumbling without subsequent striking against object, initial encounter; Y92.009 Unspecified place in unspecified non-institutional (private) residence as the place of occurrence of the external cause | CPT/HCPCS: A0425; A0429 ==

== ENCOUNTER 2022-12-28 17:58 | Emergency (ER) | payer MEDICARE ==
--- NOTE | 2022-12-28 18:06 | ED Physician Documentation ---
PD HPI Fall - Stated complaint Stated Complaint: ETOH/GLF - History obtained from History obtained from: Patient, EMS - Additional information Additional information: 77-year-old gentleman who fell at home and found about an hour later by his . He has reportedly been drinking and has frequent falls related to same. He has an abrasion on his forehead but has no complaints. PD PAST MEDICAL HISTORY - Past Medical History Cardiovascular: Hypertension, High cholesterol, Coronary artery disease, [place] Respiratory: None Neuro: Other Endocrine/Autoimmune: None GI: None : None HEENT: Chronic hearing loss Psych: None Musculoskeletal: None Derm: None - Past Surgical History Past Surgical History: Yes General: Appendectomy Cardiovascular: Coronary stent, Pacemaker - Present Medications Home Medications: Ambulatory Orders Medication Instructions Recorded Confirmed Aspirin [Aspir-Eleanor] 325 mg PO DAILY 05/05/13 12/28/22 Atorvastatin Calcium [Lipitor] 80 mg PO DAILY 05/05/13 12/28/22 Metoprolol Tartrate [Lopressor] 25 mg PO BID 11/24/16 12/28/22 Nortriptyline [Pamelor] 10 mg PO HS 02/04/22 12/28/22 - Allergies Allergies/Adverse Reactions: Allergies Allergy/AdvReac Type Severity Reaction Status Date / Time JEFFREY Inhibitors Allergy Intermediate Rash Verified 12/28/22 18:39 enalapril [Enalapril] Allergy Rash Verified 12/28/22 18:39 - Social History Does the pt smoke?: No Smoking Status: Never smoker Does the pt drink ETOH?: Yes Does the pt have substance abuse?: No - Immunizations Immunizations are current?: Yes - POLST Patient has POLST: No PD ED PE NORMAL - Vitals Vital signs reviewed: Yes - General General: No acute distress - HEENT HEENT: PERRL, EOMI, Other (Abrasion and swelling on the upper mid forehead, slightly slow slurred speech.) - Neck Neck: Supple, no meningeal sign, No bony TTP - Cardiac Cardiac: RRR, No murmur - Respiratory Respiratory: No respiratory distress, Clear bilaterally - Abdomen Abdomen: Non tender - Derm Derm: Normal color, Warm and dry - Neuro Eye Opening: Spontaneous Motor: Obeys Commands Verbal: Confused (mild) GCS Score: 14 Results - Vitals Vitals: Vital Signs - 24 hr 12/28/22 12/28/22 18:03 18:34 Temperature 36.6 C Heart Rate 82 83 Respiratory 16 18 Rate Blood Pressure 138/77 H 122/72 O2 Saturation 96 95 Oxygen O2 Source Room air - Labs Labs: Laboratory Tests 12/28/22 12/28/22 12/28/22 18:31 18:31 18:31 WBC 9.6 RBC 4.96 Hgb 15.6 Hct 47.8 MCV 96.4 H MCH 31.5 H MCHC 32.6 RDW 14.6 Plt Count 217 MPV 10.5 Neut # (Auto) 7.4 H Lymph # (Auto) 1.4 L [place] # (Auto) 0.6 Eos # (Auto) 0.2 Baso # (Auto) 0.1 Absolute Nucleated RBC 0.00 Nucleated RBC % 0.0 PT 11.2 INR 1.0 Sodium 140 Potassium 3.6 Chloride 104 Carbon Dioxide 25 Anion Gap 11.0 BUN 16 Creatinine 1.0 Estimated GFR (MDRD) 72 L Glucose 104 H Calcium 8.8 Magnesium 1.9 Total Bilirubin 0.7 AST 17 ALT 18 Alkaline Phosphatase 52 Total Protein 6.6 L Albumin 3.7 Globulin 2.9 Albumin/Globulin Ratio 1.3 Ethyl Alcohol 66.8 - Rads (name of study) CT of the head and neck showing chronic and degenerative changes as well as atrophy but no trauma. Relevant Findings:: Final report received, EMP independent interpretation of test PD Medical Decision Making - ED course ED course: 77-year-old gentleman presents after apparent ground-level fall which is on recollected in the setting of alcohol use. His arrived shortly after the initial evaluation and independent history was taken from her. I asked her when the last time he did not drink was and she responded "probably age 6." She does not feel like he has any intention of quitting alcohol which is heavy and daily. Departure - Departure Disposition: 01 Home, Self Care Clinical Impression: Alcohol abuse, Fall from ground level, Head injury Condition: Good Record reviewed to determine appropriate education?: Yes Instructions: ED Alcohol Intoxication, ED Head Injury Closed Comments: No evidence of severe head injury on CT of the head and neck. You do have shrinkage of your brain probably related to continued alcohol abuse. We recommend you quit drinking. Call your doctor to arrange a follow-up appointment, make the next available appointment. In the interim, return anytime if worse or if new symptoms develop.
[2022-12-28] MEDS ORDERED: THIAMINE INJ 100 MG in SODIUM CHLORIDE 0.9% 50 ML IV STA (18:17)
--- NOTE | 2022-12-28 18:35 | CT Report ---
PROCEDURE: HEAD WO INDICATIONS: head inj, etoh TECHNIQUE: Noncontrast 4.5 mm thick angled axial sections acquired from the foramen magnum to the vertex. For r adiation dose reduction, the following was used: automated exposure control, adjustment of mA and/or kV according to patient size. COMPARISON: 02/04/2022, 03/08/2019. Correlation is also made with the accompanying cervical spine CT, 12/28/2022. FINDINGS: Image quality: Excellent. CSF spaces: Basal cisterns are patent. No extra-axial fluid collections. Ventricles are stable and symmetrically enlarged. Brain: No midline shift. No intracranial masses or hemorrhage. Campbell-white matter interface is norm al. Skull and face: Calvarium and visualized facial bones are intact, without suspicious lesions. Sinuses: There is complete opacification of the visualized right maxillary sinus. There is moderate mucosal thickening within the anterior right ethmoid air cells. No significant abnormal fluid can be seen within the mastoid air cells. IMPRESSION: No intracranial hemorrhage is seen. No significant intracranial abnormality is seen. Brain parenchymal volume loss, with stable symmetric enlargement of the ventricles. Reviewed by: Wale Vera MD on 12/28/2022 5:34 PM BRYAN Approved by: Wale Vera MD on 12/28/2022 5:34 PM AKBELLA Station ID: [id number]
[2022-12-28 18:37] LABS: BASOPHILS # (AUTO) 0.1 10^3/uL (0.0-0.1); BASOPHILS % (AUTO) 0.7 %; EOSINOPHILS # (AUTO) 0.2 10^3/uL (0.0-0.7); EOSINOPHILS % (AUTO) 1.9 %; HCT - HEMATOCRIT 47.8 % (42.0-52.0); HGB - HEMOGLOBIN 15.6 g/dL (14.0-18.0); LYMPHOCYTES # (AUTO) 1.4 10^3/uL (1.5-3.5); LYMPHOCYTES % (AUTO) 14.1 %; MEAN CORPUSCULAR HEMOGLOBIN 31.5 pg (27.0-31.0); MEAN CORPUSCULAR HGB CONC 32.6 g/dL (32.0-36.0); MEAN CORPUSCULAR VOLUME 96.4 fL (80.0-94.0); MEAN PLATELET VOLUME 10.5 fL (7.4-11.4); MONOCYTES # (AUTO) 0.6 10^3/uL (0.0-1.0); MONOCYTES % (AUTO) 6.3 %; NEUTROPHILS # (AUTO) 7.4 10^3/uL (1.5-6.6); NEUTROPHILS % (AUTO) 76.7 %; PLT - PLATELET COUNT 217 10^3/uL (130-450); RED BLOOD COUNT 4.96 10^6/uL (4.70-6.10); RED CELL DISTRIBUTION WIDTH 14.6 % (12.0-15.0); WHITE BLOOD COUNT 9.6 x10^3/uL (4.8-10.8)
--- NOTE | 2022-12-28 18:38 | CT Report ---
PROCEDURE: CERVICAL SPINE WO INDICATIONS: head inj, etoh TECHNIQUE: Noncontrast 3 mm thick sections acquired from the skull base to the T4 level. Sagittal and coronal r eformats were then constructed. For radiation dose reduction, the following was used: automated exp osure control, adjustment of mA and/or kV according to patient size. COMPARISON: 10/04/2018, 01/03/2014. Correlation is also made with the accompanying head CT, 12/28/2022. FINDINGS: Image quality: Excellent. Bones: No fractures or dislocations. Visualized superior ribs are intact. Focal degenerative change can be seen involving the C1-C2 interface anteriorly. Mild disc space narro wing can be seen at C5-C6. Moderate severe disc space narrowing can be seen at C6-C7, with a degree o f vertebral body fusion at this level. Posteriorly directed endplate osteophytes are seen at this lev el. Milder degenerative changes are seen elsewhere. Soft tissues: Prevertebral soft tissues are normal in thickness. No paravertebral hematomas. No ap ical pneumothoraces. Atherosclerotic calcification is seen. Left-sided pacer leads are partially see n. IMPRESSION: Negative for acute fracture. Degenerative changes are seen, which are worst at the C6-C7 level. Reviewed by: Wale Vera MD on 12/28/2022 5:37 PM BRYAN Approved by: Wale Vera MD on 12/28/2022 5:37 PM BRYAN Station ID: [id number]
[2022-12-28 18:42] LABS: PT - PROTHROMBIN TIME 11.2 secs (9.9-12.6)
[2022-12-28 18:47] LABS: ALBUMIN 3.7 g/dL (3.2-5.5); ALBUMIN/GLOBULIN RATIO 1.3 (1.0-2.2); BILIRUBIN,TOTAL 0.7 mg/dL (0.2-1.0); CALCIUM 8.8 mg/dL (8.5-10.3); ETOH - ETHANOL 66.8 mg/dL; MAGNESIUM 1.9 mg/dL (1.7-2.8); POTASSIUM 3.6 mmol/L (3.5-5.0); TOTAL PROTEIN 6.6 g/dL (6.7-8.2)
[2022-12-28 19:17] VITALS: BP 127/77
== END 2022-12-28 19:17 | disposition home or self-care (01) ==
LOC: EDUNIT# → ED 17:58
DX: S09.90XA Unspecified injury of head, initial encounter (principal); W18.30XA Fall on same level, unspecified, initial encounter; Z91.81 History of falling; Y92.009 Unspecified place in unspecified non-institutional (private) residence as the place of occurrence of the external cause; F10.10 Alcohol abuse, uncomplicated; Y90.3 Blood alcohol level of 60-79 mg/100 ml; I10 Essential (primary) hypertension; E78.00 Pure hypercholesterolemia, unspecified; I25.10 Atherosclerotic heart disease of native coronary artery without angina pectoris; I25.2 Old myocardial infarction; Z79.82 Long term (current) use of aspirin; Z79.899 Other long term (current) drug therapy; Z95.5 Presence of coronary angioplasty implant and graft
CPT/HCPCS: 36415; 70450; 72125; 80053; 83735; 85025; 85610; 96365; 99284; G0480; J3411; J7040; 80320

== ENCOUNTER 2023-06-03 18:48 | Outpatient (CLI) | payer MEDICARE | END 2023-06-03 18:49 | disposition critical access hospital (66) | LOC: EMS 18:48 | DX: S01.81XA Laceration without foreign body of other part of head, initial encounter (principal); R04.0 Epistaxis; W10.1XXA Fall (on)(from) sidewalk curb, initial encounter; Y92.481 Parking lot as the place of occurrence of the external cause | CPT/HCPCS: A0425; A0429 ==

== ENCOUNTER 2023-06-03 19:07 | Emergency (ER) | payer MEDICARE ==
[2023-06-03] MEDS ORDERED: BUFFERED LIDOCAINE 10 ML SYRINGE SUBQ STA (20:05)
--- NOTE | 2023-06-03 20:06 | ED Physician Documentation ---
PD HPI HEAD INJURY - Stated complaint Stated Complaint: FALL/HEAD LAC - Chief complaint Chief Complaint: Trauma Hd/Nk - History obtained from History obtained from: Patient, Family - History of Present Illness Mechanism of head injury: Fell Where head injury occurred: Street Timing - onset: Today Location of injury: Right, Front Quality of pain: Pain, Throbbing Associated symptoms: No: LOC, AMS, Amnesia, Nausea / vomiting, Neck pain, Paresthesias, Seizures, Ear drainage, Nasal drainage Symptoms improve with: Rest Symptoms worsen with: Palpation, Movement Contributing factors: Intoxicated. No: Anticoagulated Similar symptoms before: Diagnosis (concussion facial fractures intoxication subdural) Recently seen: Not recently seen - Additional information Additional information: 77-year-old Kulwinder Andino has a fall after getting in to his car after having dinner. He fell flat onto his face. He did not have loss of consciousness. He denies any difficulty concentrating, headache, dizziness, or lightheadedness. He has a laceration to his forehead. He has significant bruising to his midface and swelling of his nose. He is not able to breathe through his nose well. He states that he was not otherwise ill prior to this he has had a cough for about the past month. Review of Systems Constitutional: denies: Fever Eyes: denies: Decreased vision Ears: denies: Ear pain Nose: denies: Congestion Throat: denies: Sore throat Cardiac: denies: Chest pain / pressure, Palpitations Respiratory: denies: Dyspnea, Cough GI: denies: Abdominal Pain, Nausea, Vomiting, Constipation, Diarrhea : denies: Dysuria, Frequency PD PAST MEDICAL HISTORY - Past Medical History Cardiovascular: Hypertension, High cholesterol, Coronary artery disease, [place] Respiratory: None Neuro: Other Endocrine/Autoimmune: None GI: None : None HEENT: Chronic hearing loss Psych: None Musculoskeletal: None Derm: None - Past Surgical History Past Surgical History: Yes General: Appendectomy Cardiovascular: Coronary stent, Pacemaker - Present Medications Home Medications: Ambulatory Orders Medication Instructions Recorded Confirmed Aspirin [Aspir-Eleanor] 325 mg PO DAILY 05/05/13 12/28/22 Atorvastatin Calcium [Lipitor] 80 mg PO DAILY 05/05/13 12/28/22 Metoprolol Tartrate [Lopressor] 25 mg PO BID 11/24/16 12/28/22 Nortriptyline [Pamelor] 10 mg PO HS 02/04/22 12/28/22 - Allergies Allergies/Adverse Reactions: Allergies Allergy/AdvReac Type Severity Reaction Status Date / Time JEFFREY Inhibitors Allergy Intermediate Rash Verified 12/28/22 18:39 enalapril [Enalapril] Allergy Rash Verified 12/28/22 18:39 - Social History Does the pt smoke?: No Smoking Status: Never smoker Does the pt drink ETOH?: Yes Does the pt have substance abuse?: No - Immunizations Immunizations are current?: Yes - POLST Patient has POLST: No PD ED PE NORMAL - Vitals Vital signs reviewed: Yes (hypertensive mild ) - General General: Alert and oriented X 3, No acute distress, Well developed/nourished - HEENT HEENT: PERRL, EOMI, Other (4.5 cm laceration to the right forehead. abrasions to the face, swelling and bleeding to the nose. no mid face instability. ) - Neck Neck: Supple, no meningeal sign, No bony TTP, C-Spine cleared by NEXUS criteria - Cardiac Cardiac: RRR, No murmur - Respiratory Respiratory: No respiratory distress, Other (rhonchi in right base .) - Abdomen Abdomen: Normal bowel sounds, Soft, Non tender, Non distended, No organomegaly - Back Back: No CVA TTP, No spinal TTP - Derm Derm: Normal color, Warm and dry, No rash - Extremities Extremities: No deformity, No edema - Neuro Neuro: Alert and oriented X 3, oracle programmer 2-12 intact, No motor deficit, No sensory deficit, Normal speech Eye Opening: Spontaneous Motor: Obeys Commands Verbal: Oriented GCS Score: 15 - Psych Psych: Normal mood, Normal affect Results - Vitals Vitals: Vital Signs - 24 hr 06/03/23 06/03/23 06/03/23 19:19 19:22 21:22 Temperature 37 C 36.4 C L Heart Rate 91 96 100 Respiratory 17 20 24 Rate Blood Pressure 143/78 H 140/76 H 142/83 H O2 Saturation 92 93 96 06/03/23 23:08 Temperature 37 C Heart Rate 73 Respiratory 17 Rate Blood Pressure 132/74 H O2 Saturation 100 Oxygen O2 Source Room air - EKG (time done) 1913 EKG releavant findings:: EKG personally interpreted by author of this note. Relevant findings are: Rate: Rate (enter#) (96) Rhythm: NSR Intervals: Prolonged MN Compare to prior EKG: Changed from prior EKG (SPT 02-04-22 the raate has decreased and the LVH has resolved) Computer interpretation: Agree with computer - Labs Labs: Laboratory Tests 06/03/23 06/03/23 20:31 20:31 WBC 12.2 H RBC 4.71 Hgb 15.2 Hct 46.1 MCV 97.9 H MCH 32.3 H MCHC 33.0 RDW 14.9 Plt Count 162 MPV 10.5 Neut # (Auto) 9.2 H Lymph # (Auto) 1.6 [place] # (Auto) 1.0 Eos # (Auto) 0.4 Baso # (Auto) 0.0 Absolute Nucleated RBC 0.00 Nucleated RBC % 0.0 Sodium 140 Potassium 3.6 Chloride 104 Carbon Dioxide 27 Anion Gap 9.0 BUN 13 Creatinine 0.9 Estimated GFR (MDRD) 82 L Glucose 109 H Calcium 9.3 Total Bilirubin 1.0 AST 15 ALT 15 Alkaline Phosphatase 64 Total Protein 6.8 Albumin 4.0 Globulin 2.8 Albumin/Globulin Ratio 1.4 Lipase 18 Ethyl Alcohol 85.7 - Rads (name of study) CT facial bones Relevant Findings:: Prelim report reviewed (Impression: 1. No definite acute facial bone fractures. Chronic free fractures of the nasal bones, lateral and medial right maxillary sinus valente and inferior right orbital wall red emonstrated ), EMP independent interpretation of test CT head Relevant Findings:: Prelim report reviewed (Impression: No definite acute intracranial abnormality. Deformity of the nasal bones appears similar to prior study likely reflecting chronic fractures. Right periorbital soft tissue swelling without definite acute facial fractures.), EMP independent interpreta tion of test ( Right predominant sinus mucosal disease with mucosal opacification of the right maxillary sinus redemonstrated) chest Relevant Findings:: Prelim report reviewed (Impression: 1. No definite acute cardiopulmonary disease.) Procedures - Laceration (location) forehead Length in cm: 4.5 Wound type: Linear, Irregular, Into subcut fat, Clean Neurovascular status: Sensory intact, Motor intact, Vascular intact Anesthesia: Lidocaine 1% Wound preparation: Hibiclens, Irrigated copiously NS, Wound explored, To the base Skin layer closure: Nylon, Interrupted, Size #-0 - enter number (5-0) Other: Patient tolerated well, No complications, Neurovascular intact, Tetanus UTD PD Medical Decision Making - ED course Complexity details: reviewed old records, reviewed results, re-evaluated patient, considered differential, d/w patient, d/w family Reviewed Lab Results: We reviewed a complete blood count showing a white blood cell count of 12.2 a normal hemoglobin hematocrit and platelets chemistries were normal showing normal electrolytes normal kidney function normal liver function toxicology showed an ethyl alcohol of 85.7I found these laboratory studies to be benign and did not contribute to a specific diagnosis. ED course: 77-year-old Kulwinder Andino presents to the emergency department with marked swelling to his face and a laceration to his forehead. He did not appear confused. He has had prior subdural hematoma and multiple prior falls. His dramatic appearance made it difficult not to obtain advanced imaging of the face and head. These did not show new findings. He does appear to have chronic fracture to the right maxillofacial structures. His wound was cleansed and sutured that he tolerated this well Departure - Departure Disposition: 01 Home, Self Care Clinical Impression: Fall from ground level Forehead laceration Qualifiers: Encounter type: initial encounter Qualified Code(s): S01.81XA - Laceration without foreign body of other part of head, initial encounter Condition: Stable Instructions: ED Laceration Facial Sutr Tape Follow-Up: Dionicio Cunningham MD [Primary Care Provider] - Comments: Kulwinder, today it looks like you have a laceration to your forehead after a fall and we did not find other evidence of fracture in your face. The cough that you have been having over the past month does not show up today on your chest x-ray as a pneumonia. My recommendation is to follow-up with Dr. Jung if you continue to have this cough specifically for the cough. You will need a follow- up in a week to have your sutures removed. Discharge Date/Time: 06/03/23 23:08
[2023-06-03 20:36] LABS: BASOPHILS % (AUTO) 0.3 %; EOSINOPHILS # (AUTO) 0.4 10^3/uL (0.0-0.7); EOSINOPHILS % (AUTO) 2.9 %; HCT - HEMATOCRIT 46.1 % (42.0-52.0); HGB - HEMOGLOBIN 15.2 g/dL (14.0-18.0); LYMPHOCYTES # (AUTO) 1.6 10^3/uL (1.5-3.5); LYMPHOCYTES % (AUTO) 13.3 %; MEAN CORPUSCULAR HEMOGLOBIN 32.3 pg (27.0-31.0); MEAN CORPUSCULAR VOLUME 97.9 fL (80.0-94.0); MEAN PLATELET VOLUME 10.5 fL (7.4-11.4); MONOCYTES % (AUTO) 7.9 %; NEUTROPHILS # (AUTO) 9.2 10^3/uL (1.5-6.6); NEUTROPHILS % (AUTO) 75.1 %; PLT - PLATELET COUNT 162 10^3/uL (130-450); RED BLOOD COUNT 4.71 10^6/uL (4.70-6.10); RED CELL DISTRIBUTION WIDTH 14.9 % (12.0-15.0); WHITE BLOOD COUNT 12.2 x10^3/uL (4.8-10.8)
[2023-06-03 20:50] LABS: ALBUMIN/GLOBULIN RATIO 1.4 (1.0-2.2); CALCIUM 9.3 mg/dL (8.5-10.3); CREATININE 0.9 mg/dL (0.6-1.3); ETOH - ETHANOL 85.7 mg/dL; POTASSIUM 3.6 mmol/L (3.5-4.5); TOTAL PROTEIN 6.8 g/dL (6.4-8.9)
--- NOTE | 2023-06-03 21:14 | XRAY Report ---
PROCEDURE: Chest 1 View X-Ray INDICATIONS: rhonchi in right base TECHNIQUE: One view of the chest was acquired. COMPARISON: 05/05/2014. FINDINGS: Surgical changes and devices: There is a left chest wall dual-lead pacemaker. Lungs and pleura: The medial lung apices are partially obscured by patient's neck soft tissues. No d efinite pneumothorax. No pleural effusions. Visualized lungs are clear. Mediastinum: Mediastinal contours appear normal. Heart size is normal. Bones and chest wall: No suspicious bony lesions. Overlying soft tissues appear unremarkable. IMPRESSION: 1. No definite acute cardiopulmonary disease. Reviewed by: Ishaan Mcgowan MD on 06/03/2023 9:13 PM PDT Approved by: Ishaan Mcgowan MD on 06/03/2023 9:13 PM PDT Station ID: [id number]
--- NOTE | 2023-06-03 22:17 | CT Report ---
PROCEDURE: HEAD WO INDICATIONS: facial trauma with fall prior subdural TECHNIQUE: Noncontrast 4.5 mm thick angled axial sections acquired from the foramen magnum to the vertex. For r adiation dose reduction, the following was used: automated exposure control, adjustment of mA and/or kV according to patient size. COMPARISON: CT head 12/28/2022. FINDINGS: Image quality: Excellent. CSF spaces: There is moderate cerebral volume loss with prominence of the ventricles and sulci. Basa l cisterns are patent. No extra-axial fluid collections. Brain: No intracranial hemorrhage, mass, or mass effect. Campbell-white matter interface is grossly pres erved. Mild encephalomalacia is demonstrated within the right frontal lobe medially. There are subcor tical and periventricular white matter hypodensities consistent with moderate chronic small vessel is chemic changes. Skull and face: Calvarium demonstrates no acute fractures. There are bilateral frontal emy holes. Deformity of the nasal bones redemonstrated likely reflecting chronic fractures. Elsewhere, no defini te acute facial bone fractures. There is right periorbital soft tissue swelling. The globes are intac t. Sinuses: Visualized sinuses demonstrate mucosal opacification of the right maxillary sinus as well a s partial opacification of the right ethmoid sinus. Mild mucosal thickening in the left ethmoid sinus . Mastoid air cells are clear. IMPRESSION: 1. No definite acute intracranial abnormality. 2. Deformity of the nasal bones appears similar to the prior study likely reflecting chronic fracture s. 3. Right periorbital soft tissue swelling without definite acute facial fractures. 4. Right predominant sinus mucosal disease with mucosal opacification of the right maxillary sinus re demonstrated. Reviewed by: Ishaan Mcgowan MD on 06/03/2023 10:16 PM PDT Approved by: Ishaan Mcgowan MD on 06/03/2023 10:16 PM PDT Station ID: [id number]
--- NOTE | 2023-06-03 22:41 | CT Report ---
PROCEDURE: MAXILLOFACIAL WO INDICATIONS: Facial Injury TECHNIQUE: Noncontrast 1.5 mm thick axial images acquired from the mandible through the frontal sinuses, with co aleksandra and sagittal reformatting. For radiation dose reduction, the following was used: automated ex posure control, adjustment of mA and/or kV according to patient size. COMPARISON: Concurrent CT of the head. CT facial bones 03/08/2019. CT head 12/28/2022, 02/04/2022. FINDINGS: Image quality: Excellent. Bones and teeth: There is deformity of the nasal bones and bony nasal septum which appear similar to the prior facial bone CT. Findings are consistent with chronic fractures. There is also bony deformi ty of the lateral and medial valente of the right maxillary sinus which appear similar to the prior hea d CT studies also consistent with sequelae of chronic fractures. Mild deformity of the inferior wall of the right orbit posteriorly appears similar to the prior head CT of 12/28/2022 likely representing sequelae of a chronic fracture. Visualized portions of the mandible demonstrate no fractures or subl uxation. Zygomatic arches are intact. Pterygoid plates are intact. Visualized portions of the skul l base and auditory canals are intact. Sinuses: There is complete mucosal opacification of the right maxillary sinus redemonstrated as well as extensive mucosal opacification in the ethmoid sinuses, right greater than left. There is opacific ation of the right frontoethmoid recess. Mild mucosal thickening in the sphenoid sinuses. Mastoid air cells are clear. Soft tissues: There is right periorbital soft tissue swelling as well as paranasal soft tissue swell ing. The globes are intact. No intraorbital fluid collections or fat stranding. No enlarged lymph nod es. No soft tissue lacerations or debris. Vascular: Visualized vascular structures appear normal in the absence of contrast. Bony vascular fo ramina and canals are intact. IMPRESSION: 1. No definite acute facial bone fractures. Chronic fractures of the nasal bones, lateral and medial right maxillary sinus valente, and inferior right orbital wall redemonstrated. Reviewed by: Ishaan Moreno MD on 06/03/2023 10:40 PM PDT Approved by: Ishaan Moreno MD on 06/03/2023 10:40 PM PDT Station ID: [id number]
[2023-06-03 23:11] VITALS: BP 132/74; O2SAT 100
== END 2023-06-03 23:08 | disposition home or self-care (01) ==
LOC: EDUNIT# → ED 19:07
DX: S01.81XA Laceration without foreign body of other part of head, initial encounter (principal); W18.30XA Fall on same level, unspecified, initial encounter; I10 Essential (primary) hypertension; E78.00 Pure hypercholesterolemia, unspecified; I25.10 Atherosclerotic heart disease of native coronary artery without angina pectoris; Z79.899 Other long term (current) drug therapy; Z79.82 Long term (current) use of aspirin
CPT/HCPCS: 12013; 36415; 70450; 70486; 71045; 80053; 83690; 85025; 93005; 99284; G0480; 80320

== ENCOUNTER 2023-12-09 16:38 | Outpatient (CLI) | payer MEDICARE | END 2023-12-09 23:59 | disposition critical access hospital (66) | LOC: EMS 16:38 | DX: S00.81XA Abrasion of other part of head, initial encounter (principal); W18.30XA Fall on same level, unspecified, initial encounter; Y92.008 Other place in unspecified non-institutional (private) residence as the place of occurrence of the external cause; R53.1 Weakness; R29.6 Repeated falls; R32 Unspecified urinary incontinence; R39.9 Unspecified symptoms and signs involving the genitourinary system | CPT/HCPCS: A0425; A0427 ==

== ENCOUNTER 2023-12-09 16:59 | Emergency (ER) | payer MEDICARE ==
[2023-12-09 17:14] VITALS: BP 132/87; O2SAT 97
[2023-12-09 17:37] LABS: BASOPHILS % (AUTO) 0.4 %; EOSINOPHILS # (AUTO) 0.2 10^3/uL (0.0-0.7); EOSINOPHILS % (AUTO) 1.6 %; HGB - HEMOGLOBIN 15.2 g/dL (14.0-18.0); LYMPHOCYTES # (AUTO) 1.1 10^3/uL (1.5-3.5); LYMPHOCYTES % (AUTO) 9.7 %; MEAN CORPUSCULAR HEMOGLOBIN 31.5 pg (27.0-31.0); MEAN CORPUSCULAR HGB CONC 32.3 g/dL (32.0-36.0); MEAN CORPUSCULAR VOLUME 97.3 fL (80.0-94.0); MEAN PLATELET VOLUME 10.8 fL (7.4-11.4); MONOCYTES # (AUTO) 0.8 10^3/uL (0.0-1.0); MONOCYTES % (AUTO) 7.4 %; NEUTROPHILS # (AUTO) 8.9 10^3/uL (1.5-6.6); NEUTROPHILS % (AUTO) 80.5 %; PLT - PLATELET COUNT 224 10^3/uL (130-450); RED BLOOD COUNT 4.83 10^6/uL (4.70-6.10); RED CELL DISTRIBUTION WIDTH 14.5 % (12.0-15.0); WHITE BLOOD COUNT 11.1 x10^3/uL (4.8-10.8)
[2023-12-09 17:49] LABS: ALBUMIN 3.9 g/dL (3.2-5.5); ALBUMIN/GLOBULIN RATIO 1.4 (1.0-2.2); BILIRUBIN,TOTAL 1.4 mg/dL (0.2-1.0); CALCIUM 9.4 mg/dL (8.5-10.3); CREATININE 1.1 mg/dL (0.6-1.3); MAGNESIUM 1.5 mg/dL (1.7-2.3); POTASSIUM 3.5 mmol/L (3.5-4.5); TOTAL PROTEIN 6.7 g/dL (6.4-8.9)
--- NOTE | 2023-12-09 18:47 | CT Report ---
PROCEDURE: Head WO INDICATIONS: GLF x3 TECHNIQUE: Noncontrast 4.5 mm thick angled axial sections acquired from the foramen magnum to the vertex. For r adiation dose reduction, the following was used: automated exposure control, adjustment of mA and/or kV according to patient size. COMPARISON: 06/03/2023. FINDINGS: Image quality: Diagnostic. CSF spaces: Basal cisterns are patent. No extra-axial fluid collections. Ventricles are stable in size and shape. Brain: No midline shift. No intracranial masses or hemorrhage. No mass effect. Campbell-white matter i nterface is normal. There cerebral volume loss for age with resultant ventricular and sulcal prominen ce. There are periventricular and deep white matter chronic small vessel ischemic changes. Atheroscle rotic calcifications are noted in the intracranial segments of the bilateral internal carotid arterie s. Skull and face: Chronic appearing nasal bone fractures and fracture of the osseous nasal septum. Alexys varium and visualized facial bones are intact, without suspicious lesions. Sinuses: Visualized mastoids are clear. Scattered ethmoid mucosal thickening and complete opacifica tion the right maxillary sinus. IMPRESSION: Stable examination of the head without acute intracranial abnormalities. Age-related senescent change s and sequela chronic small vessel ischemic disease. Scattered ethmoid sinus disease with persistent complete opacification of the right maxillary sinus. Reviewed by: Jhoan Nobles MD on 12/09/2023 6:45 PM PDT Approved by: Jhoan Nobles MD on 12/09/2023 6:45 PM PDT Station ID: [id number]
--- NOTE | 2023-12-09 18:49 | CT Report ---
PROCEDURE: Cervical Spine WO INDICATIONS: GLF x3 TECHNIQUE: Noncontrast 3 mm thick sections acquired from the skull base to the T4 level. Sagittal and coronal r eformats were then constructed. For radiation dose reduction, the following was used: automated exp osure control, adjustment of mA and/or kV according to patient size. COMPARISON: Patchy left lower lung zone airspace opacities. No dense consolidation mild patchy left lower lung zone airspace opacities may represent early developing airspace. No dense consolidation. FINDINGS: Image quality: Diagnostic. Bones: No acute fractures or dislocations. No acute compression fractures of the vertebral bodies. Craniocervical junction is intact. C1-C2 relationship is preserved. Visualized superior ribs are inta ct. Straightening of cervical lordosis. Moderate multilevel cervical spondylosis most severe at C6-7. Soft tissues: Prevertebral soft tissues are normal in thickness. No paravertebral hematomas. No ap ical pneumothoraces. IMPRESSION: No acute, displaced fracture or traumatic subluxation. Multilevel cervical spondylosis most severe at C6-7. Straightening of cervical lordosis likely related to positioning and/or concurrent muscle spasms. Reviewed by: Jhoan Nobles MD on 12/09/2023 6:48 PM PDT Approved by: Jhoan Nobles MD on 12/09/2023 6:48 PM PDT Station ID: [id number]
[2023-12-09 19:16] LABS: BILIRUBIN,URINE NEGATIVE (NEGATIVE); CLARITY,URINE CLEAR (CLEAR); GLUCOSE, URINE (UA) NEGATIVE (NEGATIVE); KETONES,URINE (UA) NEGATIVE (NEGATIVE); LEUKOCYTE ESTERASE, URINE NEGATIVE (NEGATIVE); NITRITE,URINE NEGATIVE (NEGATIVE); OCCULT BLOOD,URINE SMALL (NEGATIVE); PROTEIN,URINE NEGATIVE (NEGATIVE); UROBILINOGEN,URINE 0.2 (NORMAL) E.U./dL (NORMAL)
[2023-12-09 19:25] LABS: BACTERIA,URINE None Seen /HPF (None Seen); SQUAMOUS EPITHELIAL CELL,UR RARE Squamous (<= Few); WBC,URINE 0-3 /HPF (0-3)
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
== END 2023-12-09 20:20 | disposition home or self-care (01) ==
LOC: EDUNIT# → ED 16:59
DX: S09.90XA Unspecified injury of head, initial encounter (principal); F10.10 Alcohol abuse, uncomplicated; W18.39XA Other fall on same level, initial encounter; Y92.009 Unspecified place in unspecified non-institutional (private) residence as the place of occurrence of the external cause; F03.90 Unspecified dementia, unspecified severity, without behavioral disturbance, psychotic disturbance, mood disturbance, and anxiety; I10 Essential (primary) hypertension; E78.00 Pure hypercholesterolemia, unspecified; I25.10 Atherosclerotic heart disease of native coronary artery without angina pectoris; I25.2 Old myocardial infarction; Z87.820 Personal history of traumatic brain injury; Z79.899 Other long term (current) drug therapy; Z95.0 Presence of cardiac pacemaker
CPT/HCPCS: 36415; 80053; 81001; 81003; 82077; 83690; 83735; 85025; 87086; 99283; 99284

== ENCOUNTER 2023-12-16 19:59 | Outpatient (CLI) | payer MEDICARE | END 2023-12-16 20:00 | disposition EMS.NT | LOC: EMS 19:59 | DX: Z03.89 Encounter for observation for other suspected diseases and conditions ruled out (principal) ==

== ENCOUNTER 2024-01-04 07:50 | Outpatient (CLI) | payer MEDICARE | END 2024-01-04 23:59 | disposition EMS.NT | LOC: EMS 07:50 | DX: Z03.89 Encounter for observation for other suspected diseases and conditions ruled out (principal) ==

== ENCOUNTER 2024-01-06 07:24 | Outpatient (CLI) | payer MEDICARE | END 2024-01-06 23:59 | disposition EMS.NT | LOC: EMS 07:24 | DX: S00.211A Abrasion of right eyelid and periocular area, initial encounter (principal); W18.39XA Other fall on same level, initial encounter; Y93.89 Activity, other specified; Y92.008 Other place in unspecified non-institutional (private) residence as the place of occurrence of the external cause ==

== ENCOUNTER 2024-01-08 02:10 | Outpatient (CLI) | payer MEDICARE | END 2024-01-08 23:32 | disposition critical access hospital (66) | LOC: EMS 02:10 | DX: R53.1 Weakness (principal); R29.6 Repeated falls; R25.1 Tremor, unspecified; R41.0 Disorientation, unspecified | CPT/HCPCS: A0425; A0429 ==

== ENCOUNTER 2024-01-08 02:29 | Emergency (ER) | payer MEDICARE ==
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
[2024-01-08] MEDS: SODIUM CHLORIDE 0.9% 1,000 ML IV STA (02:57)
[2024-01-08 03:04] LABS: BASOPHILS # (AUTO) 0.1 10^3/uL (0.0-0.1); BASOPHILS % (AUTO) 0.6 %; EOSINOPHILS # (AUTO) 0.2 10^3/uL (0.0-0.7); EOSINOPHILS % (AUTO) 1.4 %; HCT - HEMATOCRIT 45.1 % (42.0-52.0); HGB - HEMOGLOBIN 14.9 g/dL (14.0-18.0); LYMPHOCYTES # (AUTO) 1.2 10^3/uL (1.5-3.5); LYMPHOCYTES % (AUTO) 10.7 %; MEAN CORPUSCULAR HEMOGLOBIN 31.5 pg (27.0-31.0); MEAN CORPUSCULAR VOLUME 95.3 fL (80.0-94.0); MONOCYTES # (AUTO) 0.8 10^3/uL (0.0-1.0); MONOCYTES % (AUTO) 7.4 %; NEUTROPHILS # (AUTO) 8.6 10^3/uL (1.5-6.6); NEUTROPHILS % (AUTO) 79.6 %; PLT - PLATELET COUNT 204 10^3/uL (130-450); RED BLOOD COUNT 4.73 10^6/uL (4.70-6.10); RED CELL DISTRIBUTION WIDTH 13.5 % (12.0-15.0); WHITE BLOOD COUNT 10.8 x10^3/uL (4.8-10.8)
[2024-01-08 03:21] LABS: ALBUMIN 3.9 g/dL (3.2-5.5); ALBUMIN/GLOBULIN RATIO 1.3 (1.0-2.2); BILIRUBIN,TOTAL 1.6 mg/dL (0.2-1.0); CALCIUM 8.9 mg/dL (8.5-10.3); CREATININE 1.1 mg/dL (0.6-1.3); POTASSIUM 3.9 mmol/L (3.5-4.5); TOTAL PROTEIN 6.9 g/dL (6.4-8.9)
[2024-01-08 06:31] LABS: BILIRUBIN,URINE NEGATIVE (NEGATIVE); GLUCOSE, URINE (UA) NEGATIVE (NEGATIVE); KETONES,URINE (UA) NEGATIVE (NEGATIVE); LEUKOCYTE ESTERASE, URINE NEGATIVE (NEGATIVE); NITRITE,URINE NEGATIVE (NEGATIVE); OCCULT BLOOD,URINE NEGATIVE (NEGATIVE); PH,URINE 6.5 PH (5.0-7.5); PROTEIN,URINE NEGATIVE (NEGATIVE); UROBILINOGEN,URINE 1 (NORMAL) E.U./dL (NORMAL)
[2024-01-08 06:35] LABS: CLARITY,URINE CLEAR (CLEAR)
--- NOTE | 2024-01-08 07:43 | CT Report ---
PROCEDURE: Head WO INDICATIONS: fall/head injury/listing to R TECHNIQUE: Noncontrast 4.5 mm thick angled axial sections acquired from the foramen magnum to the vertex. For r adiation dose reduction, the following was used: automated exposure control, adjustment of mA and/or kV according to patient size. COMPARISON: CT head 12/08/2013, 10/03/2018 FINDINGS: Image quality: Excellent. The ventricular system and cortical sulci demonstrate atrophy, consistent for patient's stated age. T here is mild prominence of the ventricular system in relation to gyral and sulcal atrophy, unchanged. There are areas of hypodensity in the periventricular and subcortical white matter. There is no ac kaibab intra or extra-axial fluid collection. No acute hemorrhage, mass lesion or midline shift. Brain stem is unremarkable. Globes are symmetrical. Sinuses demonstrate complete occlusion of the right maxillary sinus. Osseous structures are intact. IMPRESSION: 1. No acute intracranial process. 2. Moderate to severe atrophy and chronic microvascular ischemic changes. 3. Mild ventricular prominence in relation to gyral and sulcal atrophy. This is suspected to represen t a central atrophy pattern given relative stability over time. However, recommend correlation to pat ient's symptoms of potential normal pressure hydrocephalus. The above findings are concordant with preliminary report. Reviewed by: Jackelyn Burgess MD on 01/08/2024 7:42 AM PDT Approved by: Jackelyn Burgess MD on 01/08/2024 7:42 AM PDT Station ID: [id number]
--- NOTE | 2024-01-08 07:44 | CT Report ---
PROCEDURE: Cervical Spine WO INDICATIONS: fall/struck head/dementia TECHNIQUE: Noncontrast 3 mm thick sections acquired from the skull base to the T4 level. Sagittal and coronal r eformats were then constructed. For radiation dose reduction, the following was used: automated exp osure control, adjustment of mA and/or kV according to patient size. COMPARISON: CT cervical spine 12/09/2023. FINDINGS: Image quality: Excellent. Bones: No fractures or dislocations. Visualized superior ribs are intact. Multilevel degenerative changes. Soft tissues: Prevertebral soft tissues are normal in thickness. No paravertebral hematomas. No ap ical pneumothoraces. IMPRESSION: Multilevel degenerative changes without visualized fracture. The above findings are concordant with preliminary report. Reviewed by: Jackelyn Burgess MD on 01/08/2024 7:43 AM PDT Approved by: Jakcelyn Burgess MD on 01/08/2024 7:43 AM PDT Station ID: [id number]
[2024-01-08] MEDS: LACTATED RINGERS 1,000 ML IV ONE (07:55)
[2024-01-08 08:04] LABS: MAGNESIUM 1.7 mg/dL (1.7-2.3); PHOSPHORUS 2.7 mg/dL (2.5-5.0); THYROID STIMULATING HORMONE 2.97 uIU/mL (0.34-5.60)
--- NOTE | 2024-01-08 08:12 | XRAY Report ---
PROCEDURE: Foot 3+V LT INDICATIONS: fall/L foot pain TECHNIQUE: 3 views of the foot were acquired. COMPARISON: None. FINDINGS: Bones: No fractures or dislocations. Hallux valgus alignment with moderate first MTP and mild IP get nt space narrowing and juxta-articular osteophytosis. No suspicious bony lesions. Soft tissues: No tibiotalar joint effusion. Achilles tendon appears normal. IMPRESSION: 1.No acute bony abnormality. If clinical symptoms persist, consider repeat imaging in 10-14 days vers us cross-sectional imaging. 2.Hallux valgus alignment with moderate first MTP joint osteoarthritis. I agree with the preliminary report. Reviewed by: Mercy Leon MD on 01/08/2024 8:11 AM PDT Approved by: Mercy Leon MD on 01/08/2024 8:11 AM PDT Station ID: [id number]
--- NOTE | 2024-01-08 08:24 | CT Report ---
PROCEDURE: Chest WO INDICATIONS: bilateral rib pain after fall TECHNIQUE: A CT scan of the chest was performed. Intravenous contrast media was not administered. Images were re corded and evaluated at appropriate window settings. Reformats: axial MIP of the chest, coronal and s agittal. For radiation dose reduction, the following was used: automated exposure control, adjustment of mA and/or kV according to patient size. COMPARISON: None. FINDINGS: Image quality: Diagnostic. Chest wall and lower neck: No thyroid nodule which requires sonographic follow up. No axillary or sup raclavicular adenopathy by size. Lungs and pleura: No consolidation. No pleural effusions. No pneumothorax. No suspicious pulmonary n odules which require follow up. Dependent atelectasis. Mediastinum: Heart size is normal. No pericardial effusion. No large vessel abnormality. No mediastin al adenopathy by size criteria. Mild calcification of the thoracic aorta. Moderate to marked coronar y vessel calcifications. Cardiac pacer wires terminate in expected positions. Bones: No aggressive osseous abnormality. No acute fractures. Bilateral rib fractures with callus for mation including the right anterior 3rd-6th ribs and left posterolateral 6th-10th ribs. Upper Abdomen: Cholelithiasis without acute cholecystitis. IMPRESSION: 1.No acute cardiopulmonary process. 2.No acute fractures or pneumothorax. Bilateral rib fractures with callus formation likely subacute/c hronic. 3.Cholelithiasis without acute cholecystitis. Findings are concordant with preliminary interpretation provided by [facility]. Reviewed by: Mercy Leon MD on 01/08/2024 8:23 AM PDT Approved by: Mercy Leon MD on 01/08/2024 8:23 AM PDT Station ID: [id number]
[2024-01-08] MEDS: THIAMINE INJ 100 MG in SODIUM CHLORIDE 0.9% 50 ML IV STA (09:10)
--- NOTE | 2024-01-08 12:19 | ED Physician Documentation ---
ED Addendum - Addendum Addendum: 01/08/24 12:18 Patient was seen and evaluated by social work. The plan is to perhaps look for custodial or assisted living. Social work did request a OT and PT consultations which I did place in as an order.
--- NOTE | 2024-01-08 12:52 | PHARMACY PROGRESS NOTE ---
- Best Possible Medication History Admit Date and Time: Processed by: Pharmacy Medications reviewed in ED?: Yes Medication History completed: Yes Patient Interview: Completed Secondary Source(s): Physician records, Insurance records As the person ultimately responsible for medication therapy, providers are able to order a medication from an existing home medication list in [facility] via the "Reconcile Routine" prior to Confirmation of that medication by technical support specialist. Such practice is discouraged except when the physician, in their clinical judgment, deems that a medical need exists for a medication without regard to previous use.
[2024-01-08] MEDS ORDERED: ACETAMINOPHEN 500 MG TABLET PO PRN (17:21)
[2024-01-08] MEDS: METOPROLOL SUCCINATE 25 MG TABLET PO SCH (21:44)
[2024-01-08] MEDS: NORTRIPTYLINE 10 MG PO SCH (21:45)
[2024-01-09 05:03] LABS: BASOPHILS # (AUTO) 0.1 10^3/uL (0.0-0.1); BASOPHILS % (AUTO) 0.5 %; EOSINOPHILS # (AUTO) 0.3 10^3/uL (0.0-0.7); EOSINOPHILS % (AUTO) 2.4 %; HCT - HEMATOCRIT 42.5 % (42.0-52.0); HGB - HEMOGLOBIN 13.7 g/dL (14.0-18.0); LYMPHOCYTES # (AUTO) 1.7 10^3/uL (1.5-3.5); LYMPHOCYTES % (AUTO) 13.8 %; MEAN CORPUSCULAR HEMOGLOBIN 30.6 pg (27.0-31.0); MEAN CORPUSCULAR HGB CONC 32.2 g/dL (32.0-36.0); MEAN CORPUSCULAR VOLUME 94.9 fL (80.0-94.0); MEAN PLATELET VOLUME 11.1 fL (7.4-11.4); MONOCYTES # (AUTO) 1.1 10^3/uL (0.0-1.0); MONOCYTES % (AUTO) 9.4 %; NEUTROPHILS # (AUTO) 8.8 10^3/uL (1.5-6.6); NEUTROPHILS % (AUTO) 73.7 %; PLT - PLATELET COUNT 199 10^3/uL (130-450); RED BLOOD COUNT 4.48 10^6/uL (4.70-6.10); RED CELL DISTRIBUTION WIDTH 13.5 % (12.0-15.0)
[2024-01-09 05:20] LABS: CALCIUM 8.7 mg/dL (8.5-10.3); CREATININE 0.8 mg/dL (0.6-1.3); POTASSIUM 3.6 mmol/L (3.5-4.5)
[2024-01-09] MEDS: PANTOPRAZOLE 40 MG TABLET PO SCH (06:45)
[2024-01-09] MEDS: ASPIRIN EC 81 MG TABLET PO SCH (09:14)
[2024-01-09] MEDS: ENOXAPARIN 40 MG/0.4 ML SYRINGE SUBQ SCH (09:14)
[2024-01-09] MEDS: ATORVASTATIN 40 MG TABLET PO SCH (09:14)
[2024-01-09] MEDS: THIAMINE 100 MG TABLET PO SCH (09:14)
--- NOTE | 2024-01-09 15:08 | ED Physician Documentation ---
ED Addendum - Addendum Addendum: 01/09/24 15:04 I talked with the patient and his . He was only minimally conversant. However his pointed out he is hard of hearing and as I spoke louder he actually was more interactive. He did complain of still some generalized pains on the face with abrasions. His noted his right knee to be swollen and a bit tender. I did examine it. His knee exam showed some mild effusion and tenderness anteriorly and medially. Cruciate ligament testing was without any pain or laxity. Varus and valgus showed some pain with valgus stress but no widening of the joint. There is some tight tenderness on the medial joint line. Passive flexion with impaction and rotation did not cause any pain and there is no click or pops so lesser suspicion for meniscal injury. X-ray showed arthritic changes without any fractures. We will place a articulating knee brace to help. I did hear from Rosalinda, social work who had talked with the patient and his today. A high school social studies teacher had been with them yesterday to discuss issues of private pay placement. However the receiving facility still wanted a backup plan for once the patient is there and asked that the patient's and he apply for Medicaid. This would be a routine procedure in case he needs to be there more extended leave. The apparently did not want to do that as it would subsequently cause spend down of their savings. At this point they are opting not to go to a snf for short-term. Instead we can try to work with home health for in- house services with nursing, aide, physical therapy. I did put in a referral for that and will Rosalinda our high school social studies teacher was contacting them to complete the referral. Apparently the patient's in talking to social work was not very happy about going home at this point but again was not wanting to go through the application forms or subsequent procedures that would be needed if he was more long-term in the facility. The did not voice particular disagreement to me but was sat on taking him home at this time. I would not see a particular need for change in medications. He could add Tylenol if needed for pains. Disposition: The patient discharged home in stable condition. Diagnoses: 1. Generalized weakness 2. Fall by trip slip or stumble 3. Facial abrasions 4. Right knee sprain
[2024-01-09 15:54] VITALS: BP 169/99; O2SAT 100
--- NOTE | 2024-01-09 16:34 | XRAY Report ---
PROCEDURE: Knee 3V RT INDICATIONS: fall, knee pain/swelling TECHNIQUE: 3 views of the knee(s) were acquired. COMPARISON: None. FINDINGS: Bones: No fractures or dislocations. No suspicious bony lesions. Moderate tricompartmental arthri tic change Soft tissues: Mild knee joint effusion. No suspicious soft tissue calcifications or masses. IMPRESSION: No visualized acute fracture or dislocation. However, occult injury cannot be excluded. Recommend giovana rt interval imaging follow-up in 7-10 days as clinically indicated for additional evaluation. Reviewed by: Jackelyn Burgess MD on 01/09/2024 4:33 PM PDT Approved by: Jackelyn Burgess MD on 01/09/2024 4:33 PM PDT Station ID: [id number]
== END 2024-01-09 15:50 | disposition home or self-care (01) ==
LOC: EDUNIT# → ED 02:29
DX: S83.91XA Sprain of unspecified site of right knee, initial encounter (principal); S00.81XA Abrasion of other part of head, initial encounter; R53.1 Weakness; W18.30XA Fall on same level, unspecified, initial encounter; Z91.81 History of falling; Y92.009 Unspecified place in unspecified non-institutional (private) residence as the place of occurrence of the external cause; R29.6 Repeated falls; I10 Essential (primary) hypertension; E78.00 Pure hypercholesterolemia, unspecified; I25.10 Atherosclerotic heart disease of native coronary artery without angina pectoris; I25.2 Old myocardial infarction; Z79.82 Long term (current) use of aspirin; Z79.899 Other long term (current) drug therapy
CPT/HCPCS: 36415; 70450; 71250; 72125; 73562; 73630; 80048; 80053; 81003; 82607; 83690; 83735; 84100; 84443; 85025; 96365; 96372; 97162; 97166; 99284; 99285; A9270; J1650; J3411; J7040; J7120; 81001; 87086

== ENCOUNTER 2024-01-10 09:25 | Outpatient (CLI) | payer MEDICARE | END 2024-01-10 23:59 | disposition critical access hospital (66) | LOC: EMS 09:25 | DX: R41.82 Altered mental status, unspecified (principal); R06.89 Other abnormalities of breathing; R11.10 Vomiting, unspecified; R50.9 Fever, unspecified; R09.89 Other specified symptoms and signs involving the circulatory and respiratory systems; R32 Unspecified urinary incontinence | CPT/HCPCS: A0425; A0427 ==

== ENCOUNTER 2024-01-10 09:39 | Inpatient (IN) | payer MEDICARE ==
[2024-01-10] MEDS: SODIUM CHLORIDE 0.9% 1,000 ML IV STA ×2 (10:01→11:24)
[2024-01-10] MEDS: NOREPINEPHRINE/0.9 % NS 8 MG/250 ML BAG IV SCH ×2 (10:01→17:00)
[2024-01-10 10:03] LABS: BASOPHILS % (AUTO) 0.3 %; EOSINOPHILS % (AUTO) 0.2 %; HCT - HEMATOCRIT 48.8 % (42.0-52.0); LYMPHOCYTES # (AUTO) 1.1 10^3/uL (1.5-3.5); MEAN CORPUSCULAR HEMOGLOBIN 30.3 pg (27.0-31.0); MEAN CORPUSCULAR HGB CONC 30.7 g/dL (32.0-36.0); MEAN CORPUSCULAR VOLUME 98.6 fL (80.0-94.0); MONOCYTES # (AUTO) 0.7 10^3/uL (0.0-1.0); MONOCYTES % (AUTO) 6.1 %; NEUTROPHILS # (AUTO) 9.6 10^3/uL (1.5-6.6); NEUTROPHILS % (AUTO) 82.3 %; PLT - PLATELET COUNT 151 10^3/uL (130-450); RED BLOOD COUNT 4.95 10^6/uL (4.70-6.10); WHITE BLOOD COUNT 11.7 x10^3/uL (4.8-10.8)
[2024-01-10 10:08] LABS: INR 1.6 (0.8-1.2); PT - PROTHROMBIN TIME 17.4 secs (9.9-12.6)
[2024-01-10 10:17] LABS: ACETAMINOPHEN 0.1 ug/mL; ALBUMIN 3.3 g/dL (3.2-5.5); ALBUMIN/GLOBULIN RATIO 1.3 (1.0-2.2); ALKALINE PHOSPHATASE 68 IU/L (42-121); ALT ALANINE AMINOTRANSFERASE 296 IU/L (10-60); AST ASPARTATE AMINOTRANSFERASE 408 IU/L (10-42); BILIRUBIN,TOTAL 1.9 mg/dL (0.2-1.0); BUN - BLOOD UREA NITROGEN 40 mg/dL (6-20); CALCIUM 8.3 mg/dL (8.5-10.3); CARBON DIOXIDE - CO2 21 mmol/L (21-32); CHLORIDE 103 mmol/L (101-111); CK- CREATINE KINASE 210 IU/L (30-223); CREATININE 2.5 mg/dL (0.6-1.3); ETOH - ETHANOL < 10.0 mg/dL; GFR - MDRD 25 (>89); GLUCOSE 275 mg/dL (74-104); LIPASE 43 U/L (11-82); MAGNESIUM 1.3 mg/dL (1.7-2.3); POTASSIUM 3.5 mmol/L (3.5-4.5); SODIUM 134 mmol/L (135-145); TOTAL PROTEIN 5.9 g/dL (6.4-8.9)
[2024-01-10] MEDS: ACETAMINOPHEN 650 MG SUPP PR STA (10:20)
--- NOTE | 2024-01-10 10:21 | XRAY Report ---
PROCEDURE: Chest 1V INDICATIONS: resp failure TECHNIQUE: One view of the chest was acquired. COMPARISON: None FINDINGS: Surgical changes and devices: ET tube tip in good position 2.8 cm above the michelle. Left dual-chambe r pacemaker. Lungs and pleura: No pleural effusions or pneumothorax. Lungs are clear. Mediastinum: Mediastinal contours appear normal. Heart size is enlarged. No moderate vascular conge stion. No pneumothorax. Bones and chest wall: No suspicious bony lesions. Overlying soft tissues appear unremarkable. IMPRESSION: Endotracheal tube tip good position 2.8 cm by the michelle Cardiomegaly and moderate vascular congestion accentuated by low lung volumes Reviewed by: Leoncio Proctor MD on 01/10/2024 9:20 AM BRYAN Approved by: Leoncio Proctor MD on 01/10/2024 9:20 AM AKBELLA Station ID: [id number]
--- NOTE | 2024-01-10 10:23 | ED Physician Documentation ---
History of Present Illness - Stated complaint Stated Complaint: RESPIRATORY ARREST - Chief complaint Chief Complaint: Critical Care - History obtained from History obtained from: EMS, Other () - Additonal information Additional information: Patient is a 78-year-old male with a history of high blood pressure, hyperlipidemia, pacemaker Presenting for being found unresponsive. Patient has recently been seen by EMS as well as our emergency department multiple times for falls and has a significant history of alcohol abuse. He was discharged home yesterday afternoon and required a lift assist to get back into the home. Fire helped him back into bed and states that he fell asleep around 5 or 6 PM and has been sleeping all through the night. She has periodically checked on him through the night and this morning around 7:00 was unable to awaken him up and found vomit on him in the bed which prompted her to call EMS. EMS arrived and found the patient unresponsive. They found him to have a temperature of 108 Fahrenheit, hypotensive. They gave him fluids prior to intubating him. They administered 20 mg of etomidate and 100 of rocuronium for the intubation. Per the bevel mill operator she did need to give a second dose of etomidate for the intubation. They state the emesis was yellow and there was not blood. Postintubation they administered Versed and fentanyl per their post intubation sedation orders. However patient has not had any movements since their arrival. EMS has given a total of 1200 mL of IV fluids and also started him on Levophed. Review of Systems Unable to obtain: Unresponsive PD PAST MEDICAL HISTORY - Past Medical History Cardiovascular: Hypertension, High cholesterol, Coronary artery disease, SC Respiratory: None Neuro: Other Endocrine/Autoimmune: None GI: None : None HEENT: Chronic hearing loss Psych: None Musculoskeletal: None Derm: None - Past Surgical History Past Surgical History: Yes General: Appendectomy Cardiovascular: Coronary stent, Pacemaker - Present Medications Home Medications: Ambulatory Orders Medication Instructions Recorded Confirmed Atorvastatin Calcium [Lipitor] 80 mg PO DAILY 05/05/13 01/10/24 Metoprolol Tartrate [Lopressor] 25 mg PO BID 11/24/16 01/10/24 Nortriptyline [Pamelor] 10 mg PO HS 02/04/22 01/10/24 Aspirin [Adult Aspirin Regimen] 81 mg PO DAILY 01/08/24 01/10/24 Thiamine [Vitamin B-1] 50 mg PO DAILY 01/08/24 01/10/24 - Allergies Allergies/Adverse Reactions: Allergies Allergy/AdvReac Type Severity Reaction Status Date / Time JEFFREY Inhibitors Allergy Intermediate Rash Verified 01/10/24 09:48 enalapril [Enalapril] Allergy Rash Verified 01/10/24 09:48 - Social History Does the pt smoke?: No Smoking Status: Never smoker Does the pt drink ETOH?: Yes Does the pt have substance abuse?: No - Immunizations Immunizations are current?: Yes - POLST Patient has POLST: No PD ED PE NORMAL - General General: Other (Unresponsive). No: Alert and oriented X 3, No acute distress - HEENT HEENT: Atraumatic, PERRL. No: Moist mucous membranes (Dry oral mucosa) - Cardiac Cardiac: Other (Tachycardic, regular rhythm) - Respiratory Respiratory: Other (Coarse breath sounds bilaterally) - Abdomen Abdomen: Normal bowel sounds, Soft, Non distended - Derm Derm: Warm and dry - Extremities Extremities: No edema - Neuro Neuro: No: Alert and oriented X 3 (Unresponsive) Results - Vitals Vitals: Vital Signs - 24 hr 01/10/24 01/10/24 01/10/24 09:46 09:51 10:05 Temperature 41.3 C H Heart Rate 148 H 16 L Respiratory 16 Rate Blood Pressure 87/55 L O2 Saturation 98 01/10/24 01/10/24 01/10/24 10:08 10:57 11:39 Temperature 40.3 C H Heart Rate 143 H 157 H 132 H Respiratory 16 16 12 Rate Blood Pressure 93/57 L 118/108 H 84/54 L O2 Saturation 99 100 98 01/10/24 01/10/24 01/10/24 12:22 12:27 12:30 Temperature Heart Rate 127 H 112 H 110 H Respiratory 22 18 Rate Blood Pressure 115/46 L 121/49 L O2 Saturation 96 100 01/10/24 01/10/24 01/10/24 12:45 13:00 13:30 Temperature Heart Rate 115 H 115 H 109 H Respiratory 22 26 H 20 Rate Blood Pressure 119/51 L 107/55 L 113/57 L O2 Saturation 100 97 99 01/10/24 01/10/24 01/10/24 13:45 14:00 14:30 Temperature Heart Rate 106 H 104 H 61 Respiratory 21 21 19 Rate Blood Pressure 113/67 111/59 L 159/116 H O2 Saturation 100 99 100 Oxygen O2 Source Mechanical ventilator - EKG (time done) 1004 EKG releavant findings:: EKG personally interpreted by author of this note. Relevant findings are: Rate 140, sinus tachycardia, no STEMI - Labs Labs: Laboratory Tests 01/10/24 01/10/24 01/10/24 09:50 09:50 09:50 WBC 11.7 H RBC 4.95 Hgb 15.0 Hct 48.8 MCV 98.6 H MCH 30.3 MCHC 30.7 L RDW 14.0 Plt Count 151 MPV 12.0 H Neut # (Auto) 9.6 H Lymph # (Auto) 1.1 L Ray # (Auto) 0.7 Eos # (Auto) 0.0 Baso # (Auto) 0.0 Absolute Nucleated RBC 0.00 Nucleated RBC % 0.0 PT 17.4 H INR 1.6 H Bld Gas Analysis Time Sample Site ABG pH ABG pCO2 ABG pO2 ABG HCO3 ABG Total CO2 ABG O2 Saturation ABG Base Excess Norris Test Respiration Rate O2 Delivery Device Vent Mode FiO2 Tidal Volume PEEP Pressure Support Vent Sodium 134 L Potassium 3.5 Chloride 103 Carbon Dioxide 21 Anion Gap 10.0 BUN 40 H Creatinine 2.5 H Estimated GFR (MDRD) 25 L Glucose 275 H Lactic Acid Calcium 8.3 L Phosphorus < 1.0 L* Magnesium 1.3 L Total Bilirubin 1.9 H AST 408 H ALT 296 H Alkaline Phosphatase 68 Ammonia Total Creatine Kinase 210 Troponin I High Sens B-Natriuretic Peptide Total Protein 5.9 L Albumin 3.3 Globulin 2.6 Albumin/Globulin Ratio 1.3 Lipase 43 Urine Color Urine Clarity Urine pH Ur Specific Mulhall Urine Protein Urine Glucose (UA) Urine Ketones Urine Occult Blood Urine Nitrite Urine Bilirubin Urine Urobilinogen Ur Leukocyte Esterase Urine RBC Urine WBC Ur Squamous Epith Cells Amorphous Sediment Urine Bacteria Urine Casts Urine Mucus Ur Microscopic Review Urine Culture Comments Nasal Adenovirus (PCR) Nasal B. parapertussis DNA (PCR) Nasal Coronavir 229E PCR Nasal Coronavir HKU1 PCR Nasal Coronavir NL63 PCR Nasal Coronavir OC43 PCR Nasal Enterovir/Rhinovir PCR Nasal Influenza B PCR Nasal Influenza A PCR Nasal Parainfluen 1 PCR Nasal Parainfluen 2 PCR Nasal Parainfluen 3 PCR Nasal Parainfluen 4 PCR Nasal RSV (PCR) Nasal B.pertussis DNA PCR Nasal C.pneumoniae (PCR) Momo Human Metapneumo PCR Nasal M.pneumoniae (PCR) Nasal SARS-CoV-2 (PCR) Salicylates < 1.5 Urine Opiates Screen Ur Buprenorphine Scrn Ur Oxycodone Screen Urine Methadone Screen Acetaminophen 0.1 Ur Barbiturates Screen Ur Tricyclics Screen Ur Phencyclidine Scrn Ur Amphetamine Screen U Methamphetamines Scrn U Benzodiazepines Scrn Urine Cocaine Screen U Cannabinoids Screen Ur Drug Screen Comment Ethyl Alcohol < 10.0 01/10/24 01/10/24 01/10/24 09:50 09:50 09:50 WBC RBC Hgb Hct MCV MCH MCHC RDW Plt Count MPV Neut # (Auto) Lymph # (Auto) Ray # (Auto) Eos # (Auto) Baso # (Auto) Absolute Nucleated RBC Nucleated RBC % PT INR Bld Gas Analysis Time Sample Site ABG pH ABG pCO2 ABG pO2 ABG HCO3 ABG Total CO2 ABG O2 Saturation ABG Base Excess Norris Test Respiration Rate O2 Delivery Device Vent Mode FiO2 Tidal Volume PEEP Pressure Support Vent Sodium Potassium Chloride Carbon Dioxide Anion Gap BUN Creatinine Estimated GFR (MDRD) Glucose Lactic Acid 2.8 H Calcium Phosphorus Magnesium Total Bilirubin AST ALT Alkaline Phosphatase Ammonia Total Creatine Kinase Troponin I High Sens 499.8 H* B-Natriuretic Peptide 133 H Total Protein Albumin Globulin Albumin/Globulin Ratio Lipase Urine Color Urine Clarity Urine pH Ur Specific [place] Urine Protein Urine Glucose (UA) Urine Ketones Urine Occult Blood Urine Nitrite Urine Bilirubin Urine Urobilinogen Ur Leukocyte Esterase Urine RBC Urine WBC Ur Squamous Epith Cells Amorphous Sediment Urine Bacteria Urine Casts Urine Mucus Ur Microscopic Review Urine Culture Comments Nasal Adenovirus (PCR) Nasal B. parapertussis DNA (PCR) Nasal Coronavir 229E PCR Nasal Coronavir HKU1 PCR Nasal Coronavir NL63 PCR Nasal Coronavir OC43 PCR Nasal Enterovir/Rhinovir PCR Nasal Influenza B PCR Nasal Influenza A PCR Nasal Parainfluen 1 PCR Nasal Parainfluen 2 PCR Nasal Parainfluen 3 PCR Nasal Parainfluen 4 PCR Nasal RSV (PCR) Nasal B.pertussis DNA PCR Nasal C.pneumoniae (PCR) Momo Human Metapneumo PCR Nasal M.pneumoniae (PCR) Nasal SARS-CoV-2 (PCR) Salicylates Urine Opiates Screen Ur Buprenorphine Scrn Ur Oxycodone Screen Urine Methadone Screen Acetaminophen Ur Barbiturates Screen Ur Tricyclics Screen Ur Phencyclidine Scrn Ur Amphetamine Screen U Methamphetamines Scrn U Benzodiazepines Scrn Urine Cocaine Screen U Cannabinoids Screen Ur Drug Screen Comment Ethyl Alcohol 01/10/24 01/10/24 01/10/24 09:50 10:53 10:53 WBC RBC Hgb Hct MCV MCH MCHC RDW Plt Count MPV Neut # (Auto) Lymph # (Auto) Ray # (Auto) Eos # (Auto) Baso # (Auto) Absolute Nucleated RBC Nucleated RBC % PT INR Bld Gas Analysis Time Sample Site ABG pH ABG pCO2 ABG pO2 ABG HCO3 ABG Total CO2 ABG O2 Saturation ABG Base Excess Norris Test Respiration Rate O2 Delivery Device Vent Mode FiO2 Tidal Volume PEEP Pressure Support Vent Sodium Potassium Chloride Carbon Dioxide Anion Gap BUN Creatinine Estimated GFR (MDRD) Glucose Lactic Acid Calcium Phosphorus Magnesium Total Bilirubin AST ALT Alkaline Phosphatase Ammonia 69.3 Total Creatine Kinase Troponin I High Sens B-Natriuretic Peptide Total Protein Albumin Globulin Albumin/Globulin Ratio Lipase Urine Color YELLOW Urine Clarity CLEAR Urine pH 6.0 Ur Specific Mulhall >=1.030 H Urine Protein 100 H Urine Glucose (UA) NEGATIVE Urine Ketones TRACE Urine Occult Blood MODERATE H Urine Nitrite NEGATIVE Urine Bilirubin NEGATIVE Urine Urobilinogen 0.2 (NORMAL) Ur Leukocyte Esterase NEGATIVE Urine RBC 0-5 Urine WBC 0-3 Ur Squamous Epith Cells MOD Squamous H Amorphous Sediment Moderate Urine Bacteria Few Urine Casts 3-5 Hyaline Casts Urine Mucus Moderate Strands Ur Microscopic Review INDICATED Urine Culture Comments NOT INDICATED Nasal Adenovirus (PCR) NOT DETECTED Nasal B. parapertussis DNA (PCR) NOT DETECTED Nasal Coronavir 229E PCR NOT DETECTED Nasal Coronavir HKU1 PCR NOT DETECTED Nasal Coronavir NL63 PCR NOT DETECTED Nasal Coronavir OC43 PCR NOT DETECTED Nasal Enterovir/Rhinovir PCR NOT DETECTED Nasal Influenza B PCR NOT DETECTED Nasal Influenza A PCR NOT DETECTED Nasal Parainfluen 1 PCR NOT DETECTED Nasal Parainfluen 2 PCR NOT DETECTED Nasal Parainfluen 3 PCR NOT DETECTED Nasal Parainfluen 4 PCR NOT DETECTED Nasal RSV (PCR) NOT DETECTED Nasal B.pertussis DNA PCR NOT DETECTED Nasal C.pneumoniae (PCR) NOT DETECTED Momo Human Metapneumo PCR NOT DETECTED Nasal M.pneumoniae (PCR) NOT DETECTED Nasal SARS-CoV-2 (PCR) NOT DETECTED Salicylates Urine Opiates Screen NEGATIVE Ur Buprenorphine Scrn NEGATIVE Ur Oxycodone Screen NEGATIVE Urine Methadone Screen NEGATIVE Acetaminophen Ur Barbiturates Screen NEGATIVE Ur Tricyclics Screen NEGATIVE Ur Phencyclidine Scrn NEGATIVE Ur Amphetamine Screen NEGATIVE U Methamphetamines Scrn NEGATIVE U Benzodiazepines Scrn NEGATIVE Urine Cocaine Screen NEGATIVE U Cannabinoids Screen NEGATIVE Ur Drug Screen Comment CUTOFF CONC BELOW: Ethyl Alcohol 01/10/24 11:10 WBC RBC Hgb Hct MCV MCH MCHC RDW Plt Count MPV Neut # (Auto) Lymph # (Auto) Ray # (Auto) Eos # (Auto) Baso # (Auto) Absolute Nucleated RBC Nucleated RBC % PT INR Bld Gas Analysis Time 1117 Sample Site RIGHT BRACHIAL ABG pH 7.31 L ABG pCO2 37 ABG pO2 200 H* ABG HCO3 17.9 L ABG Total CO2 19.0 L ABG O2 Saturation 99 H ABG Base Excess -7.5 L Norris Test POSITIVE Respiration Rate 16 O2 Delivery Device VENTILATOR Vent Mode SIMV FiO2 80.00 Tidal Volume 500 PEEP 5 Pressure Support Vent 10 Sodium Potassium Chloride Carbon Dioxide Anion Gap BUN Creatinine Estimated GFR (MDRD) Glucose Lactic Acid Calcium Phosphorus Magnesium Total Bilirubin AST ALT Alkaline Phosphatase Ammonia Total Creatine Kinase Troponin I High Sens B-Natriuretic Peptide Total Protein Albumin Globulin Albumin/Globulin Ratio Lipase Urine Color Urine Clarity Urine pH Ur Specific [place] Urine Protein Urine Glucose (UA) Urine Ketones Urine Occult Blood Urine Nitrite Urine Bilirubin Urine Urobilinogen Ur Leukocyte Esterase Urine RBC Urine WBC Ur Squamous Epith Cells Amorphous Sediment Urine Bacteria Urine Casts Urine Mucus Ur Microscopic Review Urine Culture Comments Nasal Adenovirus (PCR) Nasal B. parapertussis DNA (PCR) Nasal Coronavir 229E PCR Nasal Coronavir HKU1 PCR Nasal Coronavir NL63 PCR Nasal Coronavir OC43 PCR Nasal Enterovir/Rhinovir PCR Nasal Influenza B PCR Nasal Influenza A PCR Nasal Parainfluen 1 PCR Nasal Parainfluen 2 PCR Nasal Parainfluen 3 PCR Nasal Parainfluen 4 PCR Nasal RSV (PCR) Nasal B.pertussis DNA PCR Nasal C.pneumoniae (PCR) Momo Human Metapneumo PCR Nasal M.pneumoniae (PCR) Nasal SARS-CoV-2 (PCR) Salicylates Urine Opiates Screen Ur Buprenorphine Scrn Ur Oxycodone Screen Urine Methadone Screen Acetaminophen Ur Barbiturates Screen Ur Tricyclics Screen Ur Phencyclidine Scrn Ur Amphetamine Screen U Methamphetamines Scrn U Benzodiazepines Scrn Urine Cocaine Screen U Cannabinoids Screen Ur Drug Screen Comment Ethyl Alcohol Procedures - Central Line - Major Central Line Preparation: Consent Obtained (Verbal from ), Time out completed, Ultrasound used, Sterile prep and drape Central line location: Right IJ Central line type: Triple lumen Central line aftercare: Chlorhexidine disc placed, Secured, Placement confirmed, No pneumothorax, No complications, Pt tolerated well PD Medical Decision Making - ED course Complexity details: reviewed results, re-evaluated patient, d/w family ED course: Patient is a 78-year-old male presenting unresponsive with hypotension. Patient was found with agonal respirations by EMS and intubated in the field. He was given IV fluids but also required Levophed for blood pressure support. He is unresponsive on arrival here. He is febrile with a rectal temp of 106. He is hypotensive, tachycardic, intubated on a ventilator.CBC, chemistries, blood cultures, lactic, urinalysis, toxicology labs, ABG, ammonia level were obtained and reviewed. Chest x-ray was reviewed by me With signs of vascular congestion. Patient was started on cefepime and vancomycin with concerns for sepsis.Patient already received 1200 cc of IV fluids from EMS and was administered an additional 2 L here. Remained hypotensive requiring pressors. Central line was placed. A CT head, chest, abdomen pelvis were obtained. No signs of intracranial hemorrhage. Labs are significant for white count of 13,000, creatinine of 2.5, troponin of 499 - suspect demand, elevated LFTs, low magnesium and phosphorus. Concerns for consolidations on CT chest. Several discussions with patient's at the bedside and she states that he would not want CPR if his heart were to stop so we will consider him a DNR at this time. She does want to continue with care that has already been initiated. Patient to be admitted to hospitalist service for further management in the ICU. - Critical Care Time(min): 35 Time Includes: Direct patient care, Review records, Reassess patient Data interpretation: ABG Procedures excluded from critical care time: Central IV Departure - Departure Disposition: 66 [facility] DC/Xfer Clinical Impression: Septic shock, Hypomagnesemia, Hypophosphatemia, DEXTER (acute kidney injury) Pneumonia Qualifiers: Pneumonia type: due to unspecified organism Laterality: bilateral Lung location: lower lobe of lung Qualified Code(s): J18.9 - Pneumonia, unspecified organism Condition: Critical Discharge Date/Time: 01/10/24 15:57
[2024-01-10] MEDS: PROPOFOL 1000 MG/100 ML 1,000 MG/100 ML BOTTLE IV STA (10:30)
[2024-01-10 10:50] LABS: PHOSPHORUS < 1.0 mg/dL (2.5-5.0); SALICYLATE < 1.5 mg/dL
[2024-01-10 10:59] LABS: BILIRUBIN,URINE NEGATIVE (NEGATIVE); GLUCOSE, URINE (UA) NEGATIVE (NEGATIVE); KETONES,URINE (UA) TRACE mg/dL (NEGATIVE); LEUKOCYTE ESTERASE, URINE NEGATIVE (NEGATIVE); NITRITE,URINE NEGATIVE (NEGATIVE); OCCULT BLOOD,URINE MODERATE (NEGATIVE); PROTEIN,URINE 100 mg/dL (NEGATIVE); UROBILINOGEN,URINE 0.2 (NORMAL) E.U./dL (NORMAL)
[2024-01-10 11:01] LABS: CLARITY,URINE CLEAR (CLEAR)
[2024-01-10 11:04] LABS: AMORPHOUS SEDIMENT,UR Moderate /LPF; BACTERIA,URINE Few /HPF (None Seen); CASTS, URINE 3-5 Hyaline Casts /LPF; MUCUS,URINE Moderate Strands; RBC,URINE 0-5 /HPF (0-5); SQUAMOUS EPITHELIAL CELL,UR MOD Squamous (<= Few); WBC,URINE 0-3 /HPF (0-3)
[2024-01-10 11:08] LABS: AMPHETAMINE SCREEN,URINE NEGATIVE (NEGATIVE); BENZODIAZEPINES SCREEN, URINE NEGATIVE (NEGATIVE); COCAINE SCREEN URINE NEGATIVE (NEGATIVE); METHADONE SCREEN, URINE NEGATIVE (NEGATIVE); METHAMPHETAMINES SCREEN, URINE NEGATIVE (NEGATIVE); OPIATE SCREEN, URINE NEGATIVE (NEGATIVE); THC CANNABINOID SCREEN, URINE NEGATIVE (NEGATIVE); TRICYCLIC ANTIDEPRESSANT,URINE NEGATIVE (NEGATIVE)
[2024-01-10 11:09] LABS: BARBITURATE SCREEN,UR NEGATIVE (NEGATIVE); BUPRENORPHINE SCREEN, URINE NEGATIVE (NEGATIVE); OXYCODONE SCREEN, URINE NEGATIVE (NEGATIVE)
[2024-01-10 11:19] LABS: ABG HCO3 17.9 mmol/L (22.0-26.0); ABG PCO2 37 mmHg (34-45); ABG PH 7.31 (7.35-7.45)
[2024-01-10 11:20] LABS: ABG BASE EXCESS -7.5 mmol/L (-2.0-3.0); ABG MODE OF VENTILATION SIMV; ABG OXYGEN SATURATION 99 % (94-98); ABG RESPIRATORY RATE 16 b/min; ALLEN TEST POSITIVE
[2024-01-10 11:24] LABS: ABG PO2 200 mmHg (80-100)
[2024-01-10] MEDS: CEFEPIME 2 GM in SODIUM CHLORIDE 0.9% MINIBAG 100 ML IV STA (11:31)
[2024-01-10] MEDS: VANCOMYCIN INJ 2 GM, VANCOMYCIN INJ 500 MG in SODIUM CHLORIDE 0.9% 500 ML IV STA (11:32)
[2024-01-10 11:53] LABS: B. PARAPERTUSSIS- RESP PCR PAN NOT DETECTED; B. PERTUSSIS- RESP PCR PANEL NOT DETECTED; C. PNEUMONIAE- RESP PCR PANEL NOT DETECTED; CORONAVIRUS 229E-RESP PCR NOT DETECTED; CORONAVIRUS HKU1-RESP PCR NOT DETECTED; CORONAVIRUS NL63-RESP PCR NOT DETECTED; CORONAVIRUS OC43-RESP PCR NOT DETECTED; HUMAN METAPNEUMOVIRUS NOT DETECTED; INFLUENZA A- RESP PCR PANEL NOT DETECTED; INFLUENZA B - RESP PCR PANEL NOT DETECTED; M. PNEUMONIAE- RESP PCR PANEL NOT DETECTED; PARAINFLUENZA VIRUS 1 NOT DETECTED; PARAINFLUENZA VIRUS 2 NOT DETECTED; PARAINFLUENZA VIRUS 3 NOT DETECTED; PARAINFLUENZA VIRUS 4 NOT DETECTED; RHINOVIRUS/ENTEROVIRUS NOT DETECTED; RSV- RESP PCR PANEL NOT DETECTED; SARS-CoV-2 -RESP PCR PANEL NOT DETECTED
[2024-01-10] MEDS: MAGNESIUM SULFATE 2 GRAM 2 GM/50 ML BAG IV ONE (12:09)
[2024-01-10] MEDS: SODIUM PHOSPHATE 21 MMOL in SODIUM CHLORIDE 0.9% 250 ML IV ONE (12:09)
--- NOTE | 2024-01-10 13:08 | CT Report ---
PROCEDURE: Chest WO INDICATIONS: unresponsive/renal failure/hypoxic/hypotensive TECHNIQUE: A CT scan of the chest was performed. Intravenous contrast media was not administered. Images were re corded and evaluated at appropriate window settings. Reformats: axial MIP of the chest, coronal and s agittal. For radiation dose reduction, the following was used: automated exposure control, adjustment of mA and/or kV according to patient size. COMPARISON: 01/08/2024 FINDINGS: Image quality: Diagnostic Lungs and pleura:Bibasilar consolidations and superimposed atelectasis. An ET tube terminates in the distal trachea. There is no drainable pleural effusion. No pneumothorax. Likely infectious/inflammato ry nodules are also present, for example in the left lower lobe, increased compared to recent imaging Mediastinum, heart, and esophagus: Enteric tube terminates in the stomach. There are cardiac electrod e leads. Nonspecific distal esophageal wall thickening is seen. There are coronary calcifications and borderli ne large heart size. No mediastinal hematoma. No pathologic lymph nodes by size criteria Chest wall and thyroid: Unremarkable. Upper abdomen: Separately dictated Bones: Numerous rib fractures do not appear acute. Mild degenerative changes the thoracic spine, with out acute height loss. IMPRESSION: Compared to 01/08/2024, increased pulmonary basilar consolidations and nodularity, likely infectious/i nflammatory. No drainable pleural effusion. No pneumothorax or hemothorax. Consider future imaging ko rveillance to assess for resolution. ET tube terminates in appropriate position. Abdominal findings are separately dictated. Reviewed by: Blas Mckinney MD on 01/10/2024 1:07 PM PDT Approved by: Blas Mkcinney MD on 01/10/2024 1:07 PM PDT Station ID: [id number]
--- NOTE | 2024-01-10 13:10 | CT Report ---
PROCEDURE: CT Brain without contrast INDICATIONS: AMS TECHNIQUE: Helical axial CT of the brain was obtained without contrast and reformatted in multiple p lanes. Radiation dose reduction was achieved using automated exposure control or adjustment of mA and /or kV according to patient size. COMPARISON: 01/08/2024 FINDINGS: CSF spaces: Ventriculomegaly in proportion to sulcal widening. No evidence of transependymal migrati on of CSF Brain: No midline shift. No intracranial masses or hemorrhage. Campbell-white matter interface is norm al. Skull and face: Calvarium and skull base are unremarkable without suspicious lesion. Chronic appear ing nasal bone fracture Sinuses: Opacified and atelectatic right maxillary sinus. Bifrontal emy holes IMPRESSION: Atrophy and chronic ischemic change without intracranial hemorrhage or mass effect. Stable ventriculomegaly Complete right maxillary sinus opacification, also unchanged. Reviewed by: Leoncio Proctor MD on 01/10/2024 12:08 PM AKDT Approved by: Leoncio Proctor MD on 01/10/2024 12:08 PM AKDT Station ID: [id number]
--- NOTE | 2024-01-10 13:13 | CT Report ---
PROCEDURE: Abdomen/Pelvis WO INDICATIONS: unresponsive/renal failure/hypoxic/hypotensive TECHNIQUE: A CT scan of the abdomen and pelvis was performed without the use of intravenous contrast. Images we re recorded and evaluated at appropriate window settings. Reformats: coronal and sagittal. For radiat ion dose reduction, the following was used: automated exposure control, adjustment of mA and/or kV ac cording to patient size. COMPARISON: None. FINDINGS: Image quality: Diagnostic Lower chest: Separately dictated Liver: Solid organs are not well evaluated absence of intravenous contrast. No contour deforming mass . Gallbladder and biliary system: Gallstones are present. No biliary ductal dilation Pancreas: No ductal dilation Spleen: Nonenlarged Adrenals: No discrete nodules Kidneys: No contour deforming mass or hydronephrosis. Vessels and lymph nodes: Atherosclerotic calcifications. No abdominal aortic aneurysm. No pathologic lymph nodes by size criteria. Multifocal ectasia of the aorta measuring up to 2.6 cm. Bowel and peritoneum: No pathologic ascites. No small bowel obstruction. An enteric tube terminates i n the distal stomach. Mostly liquid colonic contents may represent mild colitis. Correlate with sympt oms of diarrhea. There are colonic diverticula without evidence of acute inflammation. Nonspecific retroperitoneal fat stranding is present, without discrete hematoma. No hemoperitoneum. Body wall: Tiny fat-containing umbilical hernia Pelvis: Bladder is underdistended catheter in place. Prostate is not well eval on this study. Small f at-containing left inguinal hernia Bones: No acute or suspicious osseous finding. Partially seen lower rib nonacute appearing fracture. Degenerative findings are present. IMPRESSION: On this noncontrast CT, no acute traumatic injury is identified. Possible colitis and diarrhea, correlate with any symptoms. Other nonacute/incidental findings are described above. Chest findings are separately dictated. Reviewed by: Blas Mckinney MD on 01/10/2024 1:11 PM PDT Approved by: Blas Mckinney MD on 01/10/2024 1:11 PM PDT Station ID: [id number]
--- NOTE | 2024-01-10 13:17 | XRAY Report ---
PROCEDURE: Chest for Line Placement INDICATIONS: post CVL TECHNIQUE: One view of the chest was acquired. COMPARISON: Same-day chest radiograph. FINDINGS: Surgical changes and devices: Right IJ central venous catheter terminates in the deep right atrium. Endotracheal tube terminates 3.3 cm above the michelle. Enteric decompression tube side port is in the gastric body. Cardiac pacer electrodes terminate in expected positions.. Lungs and pleura: No pleural effusions or pneumothorax. Lung volumes are low with mild diffuse inter stitial prominence. Mediastinum: Mediastinal contours appear normal. Heart size is enlarged. Bones and chest wall: No suspicious bony lesions. Overlying soft tissues appear unremarkable. Inte rval decompression of the stomach. IMPRESSION: 1.Right IJ central venous catheter terminates in the deep right atrium. No pneumothorax. 2.Mild diffuse interstitial prominence suggestive of pulmonary edema. 3.New enteric decompression tube side port is in the gastric body with decompression of the stomach. Remainder of tubes and lines, as described above. Reviewed by: Mercy Leon MD on 01/10/2024 1:15 PM PDT Approved by: Mercy Leon MD on 01/10/2024 1:15 PM PDT Station ID: [id number]
[2024-01-10] MEDS ORDERED: ALBUTEROL NEB 2.5 MG/3 ML INH PRN (14:40)
[2024-01-10] MEDS ORDERED: fentaNYL 2,500 MCG in SODIUM CHLORIDE 0.9% 200 ML IV SCH (15:00)
--- NOTE | 2024-01-10 15:00 | PROVIDER PROGRESS NOTE ---
Restraint [id number] - Immediate Situation Face to Face Evaluation Date: 01/10/24 Face to Face Evaluation Time: 13:35 - Patient's Reaction & Behaviors Safety: Unable to Follow Commands - Behavioral Condition Attitude: Other (sedated) Behavior: Other (sedated) Orientation: Non-responsive Mood: Other (sedated) - Evaluation Current Medical Condition Relating to Need for Restraint: Acute respiratory failure, septic shock Pertinent History/Illicit Drugs/Medications/Results: Intubated for respiratory failure
--- NOTE | 2024-01-10 15:07 | HISTORY & PHYSICAL EXAMINATION ---
Chief Complaint - Chief Complaint Chief Complaint: Unresponsive History of Present Illness - Admitted From Admitted From:: Home - History Obtained From History obtained from: and daughter Exam Limitations: Intubated and sedated - History of Present Illness HPI Comment/Other: This is a 78 yo M with history of alcohol abuse, HTN, HLD, CAD, Pacemaker placement and skin cancer came after he was found unresponsive. since the pt is intubated and sedated the history was obtained from his and daughter. the pt drinks scotch sips every hour but his last drink was 4 days ago. Until last night the pt was doing okay with good PO intake. His saw him at 2 am and then she saw him this morning at 7:30am. Last night he had tremors but he was r espoding appropriately at that time. She noticed loud breathing which can happen to him some time. This morning she wanted to wake him up but he was not responding. She noticed vomitus on his chest and mouth also. Since he was not responding EMS was called. When EMS got there. he was found to be hypotensive and his temp was 108F. The pt was having agonal breathing so he received IVF and then got intubated. ED course: Vital signs showed Temp of 41C, RR up to 26 and HR 115. Work up revealed WBC 11.7, INR 1.6, Na 134, BUN 40, Cr 2.5, Phos<1, Mg 1.3, T prerna 1.9, AST/ALT 408/296, Trop I 499.8, BNP 133, SG >1.3 and 3-5 hyaline casts on UA, pH 7.31, pO2 200, HCO3 17.9 and pCO2 37 on ABG. CXR showed possible pulmonary edema. CT chest showed basilar consolidation. CT head and CT abd/pel were unrem arkable. The pt received tylenol 650mg AK, cefepime 2g IV, vancomycin per pharmacy, Mg sulfate 2g IV, sodium phos 21mmol, NS 2 liters, Propofol and levophed drip. History - Past Medical History Cardiovascular: reports: Hypertension, High cholesterol, Coronary artery disease, PR, Other (Pacemaker placement) Respiratory: reports: None Neuro: reports: Other Endocrine/Autoimmune: reports: None GI: reports: None : reports: None HEENT: reports: Chronic hearing loss Psych: reports: None Musculoskeletal: reports: None Derm: reports: None MRSA Hx?: No Other Past Medical History: Alcohol abuse - Past Surgical History General: reports: Appendectomy Cardiovascular: reports: Coronary stent, Pacemaker - Family & Social History Family History: Mother: Cancer (Breast), Father: CVA/TIA Living arrangement: At home Living Situation: With spouse/s.o. - Substance History Use: Uses substance without health or social issues: Tobacco (Former smoker) Abuse: Recurrent use of substance despite neg consequences: Alcohol Tobacco Details: Cigarettes (Former smoker) - POLST Patient has POLST: No POLST Status: DNR Meds/Allgy - Home Medications Home Medications: Ambulatory Orders Medication Instructions Recorded Confirmed Atorvastatin Calcium [Lipitor] 80 mg PO DAILY 05/05/13 01/10/24 Metoprolol Tartrate [Lopressor] 25 mg PO BID 11/24/16 01/10/24 Nortriptyline [Pamelor] 10 mg PO HS 02/04/22 01/10/24 Aspirin [Adult Aspirin Regimen] 81 mg PO DAILY 01/08/24 01/10/24 Thiamine [Vitamin B-1] 50 mg PO DAILY 01/08/24 01/10/24 - Allergies Allergies/Adverse Reactions: Allergies Allergy/AdvReac Type Severity Reaction Status Date / Time JEFFREY Inhibitors Allergy Intermediate Rash Verified 01/10/24 09:48 enalapril [Enalapril] Allergy Rash Verified 01/10/24 09:48 Review of Systems - Other Findings Other Findings: Unable to obatin since he is intubated and sedated. Prior Level of Functionality: independent Exam - Vital Signs Reviewed Vital Signs: Yes Vital Signs: Vital Signs x48h Temp Pulse Resp BP Pulse Ox 01/10/24 14:30 61 19 159/116 H 100 01/10/24 14:00 104 H 21 111/59 L 99 01/10/24 13:45 106 H 21 113/67 100 01/10/24 13:30 109 H 20 113/57 L 99 01/10/24 13:00 115 H 26 H 107/55 L 97 01/10/24 12:45 115 H 22 119/51 L 100 01/10/24 12:30 110 H 18 121/49 L 100 01/10/24 12:27 112 H 01/10/24 12:22 127 H 22 115/46 L 96 01/10/24 11:39 40.3 C H 132 H 12 84/54 L 98 01/10/24 10:57 157 H 16 118/108 H 100 01/10/24 10:08 143 H 16 93/57 L 99 01/10/24 10:05 16 L 01/10/24 09:51 41.3 C H 01/10/24 09:46 148 H 16 87/55 L 98 - Physical Exam General Appearance: positive: Other (intubated and sedated) Eyes Bilateral: positive: Other (Closed) ENT: positive: Other (ET tube in place) Neck: positive: Nml inspection, No JVD Respiratory: positive: Other (Good air movement with vent) Cardiovascular: positive: Regular rate & rhythm Abdomen: positive: Nml bowel sounds, No distention Skin: positive: Color nml, No rash Extremities: positive: Nml appearance, No pedal edema Neurologic/Psychiatric: positive: Other (Intubated and sedated) Sepsis Event Note (H) - Evaluation Current Stage of Sepsis: Septic shock Possible source of Sepsis: positive: Pulmonary Confirmed Source and Organism (if known) of Sepsis: Pneumonia Sepsis Associated Organ Dysfunction: Respiratory failure, Hypotension, Type 2 PR, Acute kidney injury, hyponatremia - Sepsis Criteria Sepsis Criteria: Recorded Temperature greater than 38.3C or Less than 36C, Recorded Heart Rate greater than 90 bpm, Recorded Respiratory Rate greater than 20, Respiratory: Increasing oxygen requirements, ECHOCARDIOGRAPHY TECHNOLOGIST: altered consciousness (unrelated to primary neuro pathology), SBP drop more than 40mHg, MAP less than 65 mmHg, SBP less than 90 mmHg, Renal: urine output less than 0.5ml/kg/hr for 2 hours or creatinine gr, Metabolic: lactate > 2 mmol/L Conclusion/Plan - Problem List (1) Acute respiratory failure Conclusion/Plan: Continue with vent support for now. CT chest shows pneumonia at bibasilar area. Continue with vancomycin and cefepime for now. ABG and CXR daily. (2) Type 2 PR (myocardial infarction) Conclusion/Plan: This is from respiratory failure and septic shock with pneumonia. Will repeat trop. His family doesn't want to pursue any invasive procedures at this time. (3) Hyponatremia Conclusion/Plan: This is from DEXTER, dehydration and septic shock. Will repeat labs in am since he has been receiving IVF. (4) Hypomagnesemia Conclusion/Plan: Replacement. Repeat labs in am. (5) Hypophosphatemia Conclusion/Plan: Replacement and repeat labs in am. (6) Transaminitis Conclusion/Plan: This could be from his alcohol abuse but also this could be from hypotension. Will repeat CMP in am. IVF and levophed to support BP (7) Septic shock Conclusion/Plan: Pneumonia is the source. IV abx. Levophed. Repeat Lactate. (8) DEXTER (acute kidney injury) Conclusion/Plan: This is from dehydration and septic shock. IVF and levophed. repeat CMP in am. Avoid nephrotoxic meds. (9) Pneumonia Conclusion/Plan: Possibly aspiration pneumonia with N/V. Will keep on cefepime and vancomycin for now. Check procalcitonin, urine legionella and strep antigens. Qualifiers: Pneumonia type: due to unspecified organism Laterality: bilateral Lung location: lower lobe of lung Qualified Code(s): J18.9 - Pneumonia, unspecified organism - Lab Results Fish Bones: 01/10/24 09:50 01/10/24 09:50 - Diagnostic Imaging Results Diagnostic Imaging Results: positive: Final report reviewed
[2024-01-10] MEDS: PROPOFOL 1000 MG/100 ML 1,000 MG/100 ML BOTTLE IV SCH (16:59)
[2024-01-10] MEDS: SODIUM CHLORIDE 0.9% 1,000 ML IV SCH (16:59)
[2024-01-10 17:01] LABS: TROPONIN I HIGH SENSITIVITY 2276.7 ng/L (2.3-19.7)
[2024-01-10] MEDS: SODIUM CHLORIDE FLUSH 0.9% 10 ML SYRINGE IVP SCH (17:01)
--- NOTE | 2024-01-10 17:16 | PHARMACY PROGRESS NOTE ---
- Best Possible Medication History Admit Date and Time: 01/10/24 1440 Processed by: Pharmacy Medications reviewed in ED?: Yes Patient Interview: Pt unable to participate Secondary Source(s): Pharmacy records, Insurance records, Previous admit records As the person ultimately responsible for medication therapy, providers are able to order a medication from an existing home medication list in [facility] via the "Reconcile Routine" prior to Confirmation of that medication by director sales support. Such practice is discouraged except when the physician, in their clinical judgment, deems that a medical need exists for a medication without regard to previous use.
[2024-01-10] MEDS: fentaNYL 2,500 MCG/250 ML 2,500 MCG/250 ML BAG IV SCH (17:21)
[2024-01-10] MEDS: CHLORHEXIDINE GLUCONATE 15 ML UDC PO SCH (20:26)
[2024-01-10] MEDS: HEPARIN 5,000 UNIT/ML VIAL SUBQ SCH (20:26)
[2024-01-10] MEDS: FAMOTIDINE 20 MG/2 ML VIAL IVP SCH (20:26)
[2024-01-10] MEDS ORDERED: ZINC OXIDE 12% OINT 57 GM TUBE TOP PRN (20:36)
[2024-01-10 21:49] LABS: VBG PH 7.287 (7.31-7.41)
[2024-01-10 21:50] LABS: CALCIUM, IONIZED 1.02 mmol/L (1.15-1.33)
[2024-01-10 21:58] LABS: CALCIUM 7.5 mg/dL (8.5-10.3); MAGNESIUM 1.8 mg/dL (1.7-2.3); PHOSPHORUS 3.8 mg/dL (2.5-5.0)
[2024-01-10] MEDS: CEFEPIME 2 GM in SODIUM CHLORIDE 0.9% MINIBAG 100 ML IV SCH (22:35)
[2024-01-11 05:19] LABS: BASOPHILS % (AUTO) 0.2 %; HGB - HEMOGLOBIN 14.4 g/dL (14.0-18.0); LYMPHOCYTES # (AUTO) 1.8 10^3/uL (1.5-3.5); LYMPHOCYTES % (AUTO) 10.6 %; MEAN CORPUSCULAR HEMOGLOBIN 30.1 pg (27.0-31.0); MEAN CORPUSCULAR VOLUME 94.1 fL (80.0-94.0); MEAN PLATELET VOLUME 12.5 fL (7.4-11.4); MONOCYTES # (AUTO) 1.1 10^3/uL (0.0-1.0); MONOCYTES % (AUTO) 6.5 %; NEUTROPHILS # (AUTO) 14.2 10^3/uL (1.5-6.6); NEUTROPHILS % (AUTO) 81.6 %; RED BLOOD COUNT 4.78 10^6/uL (4.70-6.10); RED CELL DISTRIBUTION WIDTH 14.5 % (12.0-15.0); WHITE BLOOD COUNT 17.3 x10^3/uL (4.8-10.8)
[2024-01-11 05:31] LABS: MAGNESIUM 1.9 mg/dL (1.7-2.3)
[2024-01-11 05:35] LABS: CALCIUM, IONIZED 0.99 mmol/L (1.15-1.33); VBG PH 7.277 (7.31-7.41)
[2024-01-11 05:37] LABS: ALBUMIN/GLOBULIN RATIO 1.2 (1.0-2.2); CALCIUM 7.4 mg/dL (8.5-10.3); CREATININE 2.9 mg/dL (0.6-1.3); PHOSPHORUS 4.2 mg/dL (2.5-5.0); POTASSIUM 3.4 mmol/L (3.5-4.5); TOTAL PROTEIN 5.6 g/dL (6.4-8.9)
[2024-01-11 05:51] LABS: ABG PH 7.36 (7.35-7.45)
[2024-01-11 05:53] LABS: ABG HCO3 13.2 mmol/L (22.0-26.0); ABG PCO2 24 mmHg (34-45); ABG PO2 168 mmHg (80-100)
[2024-01-11 05:54] LABS: ABG BASE EXCESS -10.1 mmol/L (-2.0-3.0); ABG MODE OF VENTILATION SIMV; ABG OXYGEN SATURATION 99 % (94-98); ABG RESPIRATORY RATE 16 b/min; ALLEN TEST POSITIVE
[2024-01-11 06:04] LABS: PLT - PLATELET COUNT 35 10^3/uL (130-450)
[2024-01-11] MEDS: PANTOPRAZOLE 40 MG VIAL IVP SCH (06:41)
[2024-01-11] MEDS: LINEZOLID 600 MG/300 ML 600 MG/300 ML BAG IV SCH (07:52)
--- NOTE | 2024-01-11 09:09 | PROVIDER PROGRESS NOTE ---
Subjective - Prog Note Date Prog Note Date: 01/11/24 Prog Note Time: 09:07 - Subjective Subjective: The pt is intubated and sedated. Not much of UOP overnight. Objective - Vital Signs/Intake & Output Reviewed Vital Signs: Yes Vital Signs: Vital Signs Temp Pulse Pulse Resp BP Pulse Ox 01/11/24 08:45 82 14 136/56 H 97 01/11/24 08:40 78 01/11/24 08:30 79 16 134/79 H 98 01/11/24 08:15 79 18 140/58 H 94 01/11/24 08:00 36.9 C 82 16 134/71 H 96 01/11/24 07:45 36.7 C 80 16 119/71 98 01/11/24 07:00 73 16 113/72 99 01/11/24 06:42 78 01/11/24 06:00 76 16 125/66 99 01/11/24 05:14 78 Intake & Output: Intake & Output 01/08/24 01/09/24 01/10/24 01/11/24 23:59 23:59 23:59 23:59 Intake Total 4224.225 1604.392 Output Total 114 171 Balance 4110.225 1433.392 - Objective General Appearance: positive: Other (Intubated and sedated) Eyes Bilateral: positive: Other (Closed.) ENT: positive: Other (ET tube in place) Neck: positive: Nml inspection, No JVD Respiratory: positive: No respiratory distress, Other (Good air movement on vent) Cardiovascular: positive: Regular rate & rhythm Abdomen: positive: Nml bowel sounds, No distention Skin: positive: Color nml, No rash, Warm Extremities: positive: Nml appearance Neurologic/Psychiatric: positive: Other (Sedated) - Lab Results Fish Bones: 01/11/24 04:20 01/11/24 04:20 Other Labs: Lab Results x24hrs 01/11/24 01/11/24 01/11/24 Range/Units 05:40 04:20 04:20 WBC (4.8-10.8) x10^3/uL RBC (4.70-6.10) 10^6/uL Hgb (14.0-18.0) g/dL Hct (42.0-52.0) % MCV (80.0-94.0) fL MCH (27.0-31.0) pg MCHC (32.0-36.0) g/dL RDW (12.0-15.0) % Plt Count (130-450) 10^3/uL MPV (7.4-11.4) fL Neut # (Auto) (1.5-6.6) 10^3/uL Lymph # (Auto) (1.5-3.5) 10^3/uL [place] # (Auto) (0.0-1.0) 10^3/uL Eos # (Auto) (0.0-0.7) 10^3/uL Baso # (Auto) (0.0-0.1) 10^3/uL Absolute Nucleated RBC x10^3/uL Nucleated RBC % /100WBC PT (9.9-12.6) secs INR (0.8-1.2) Bld Gas Analysis Time 0542 Sample Site RIGHT RADIAL ABG pH 7.36 (7.35-7.45) ABG pCO2 24 L* (34-45) mmHg ABG pO2 168 H* (80-100) mmHg ABG HCO3 13.2 L (22.0-26.0) mmol/L ABG Total CO2 14.0 L (21.0-29.0) MMOL/L ABG O2 Saturation 99 H (94-98) % ABG Base Excess -10.1 L (-2.0-3.0) mmol/L Norris Test POSITIVE VBG pH 7.277 L (7.31-7.41) Ionized Calcium 0.99 L (1.15-1.33) mmol/L Respiration Rate 16 b/min O2 Delivery Device VENTILATOR Vent Mode SIMV FiO2 40.00 Tidal Volume 500 mL PEEP 5 cmH2O Pressure Support Vent cmH2O Sodium 137 (135-145) mmol/L Potassium 3.4 L (3.5-4.5) mmol/L Chloride 108 (101-111) mmol/L Carbon Dioxide 16 L (21-32) mmol/L Anion Gap 13.0 (6-13) BUN 51 H (6-20) mg/dL Creatinine 2.9 H (0.6-1.3) mg/dL Estimated GFR (MDRD) 21 L (>89) Glucose 121 H (74-104) mg/dL POC Whole Bld Glucose (70 - 100) mg/dL Lactic Acid (0.5-2.2) mmol/L Calcium 7.4 L (8.5-10.3) mg/dL Phosphorus 4.2 (2.5-5.0) mg/dL Magnesium 1.9 (1.7-2.3) mg/dL Total Bilirubin 2.0 H (0.2-1.0) mg/dL AST 206 H (10-42) IU/L ALT 318 H (10-60) IU/L Alkaline Phosphatase 64 (42-121) IU/L Ammonia (18-72) umol/L Total Creatine Kinase (30-223) IU/L Troponin I High Sens (2.3-19.7) ng/L B-Natriuretic Peptide (5-100) pg/mL Total Protein 5.6 L (6.4-8.9) g/dL Albumin 3.0 L (3.2-5.5) g/dL Globulin 2.6 (2.1-4.2) g/dL Albumin/Globulin Ratio 1.2 (1.0-2.2) Lipase (11-82) U/L Procalcitonin Immunoas (<0.5) ng/mL Urine Color Urine Clarity (CLEAR) Urine pH (5.0-7.5) PH Ur Specific Ramsey (1.002-1.030) Urine Protein (NEGATIVE) mg/dL Urine Glucose (UA) (NEGATIVE) mg/dL Urine Ketones (NEGATIVE) mg/dL Urine Occult Blood (NEGATIVE) Urine Nitrite (NEGATIVE) Urine Bilirubin (NEGATIVE) Urine Urobilinogen (NORMAL) E.U./dL Ur Leukocyte Esterase (NEGATIVE) Urine RBC (0-5) /HPF Urine WBC (0-3) /HPF Ur Squamous Epith Cells (<= Few) Amorphous Sediment /LPF Urine Bacteria (None Seen) /HPF Urine Casts /LPF Urine Mucus Ur Microscopic Review Urine Culture Comments Nasal Adenovirus (PCR) Nasal B. parapertussis DNA (PCR) Nasal Coronavir 229E PCR Nasal Coronavir HKU1 PCR Nasal Coronavir NL63 PCR Nasal Coronavir OC43 PCR Nasal Enterovir/Rhinovir PCR Nasal Influenza B PCR Nasal Influenza A PCR Nasal Parainfluen 1 PCR Nasal Parainfluen 2 PCR Nasal Parainfluen 3 PCR Nasal Parainfluen 4 PCR Nasal RSV (PCR) Nasal Screen MRSA (PCR) (NEGATIVE) Nasal B.pertussis DNA PCR Nasal C.pneumoniae (PCR) Momo Human Metapneumo PCR Nasal M.pneumoniae (PCR) Nasal SARS-CoV-2 (PCR) Salicylates mg/dL Urine Opiates Screen (NEGATIVE) Ur Buprenorphine Scrn (NEGATIVE) Ur Oxycodone Screen (NEGATIVE) Urine Methadone Screen (NEGATIVE) Acetaminophen ug/mL Ur Barbiturates Screen (NEGATIVE) Ur Tricyclics Screen (NEGATIVE) Ur Phencyclidine Scrn (NEGATIVE) Ur Amphetamine Screen (NEGATIVE) U Methamphetamines Scrn (NEGATIVE) U Benzodiazepines Scrn (NEGATIVE) Urine Cocaine Screen (NEGATIVE) U Cannabinoids Screen (NEGATIVE) Ur Drug Screen Comment Ethyl Alcohol mg/dL 01/11/24 01/11/24 01/10/24 Range/Units 04:20 00:09 21:35 WBC 17.3 H (4.8-10.8) x10^3/uL RBC 4.78 (4.70-6.10) 10^6/uL Hgb 14.4 (14.0-18.0) g/dL Hct 45.0 (42.0-52.0) % MCV 94.1 H (80.0-94.0) fL MCH 30.1 (27.0-31.0) pg MCHC 32.0 (32.0-36.0) g/dL RDW 14.5 (12.0-15.0) % Plt Count 35 L* (130-450) 10^3/uL MPV 12.5 H (7.4-11.4) fL Neut # (Auto) 14.2 H (1.5-6.6) 10^3/uL Lymph # (Auto) 1.8 (1.5-3.5) 10^3/uL [place] # (Auto) 1.1 H (0.0-1.0) 10^3/uL Eos # (Auto) 0.0 (0.0-0.7) 10^3/uL Baso # (Auto) 0.0 (0.0-0.1) 10^3/uL Absolute Nucleated RBC 0.00 x10^3/uL Nucleated RBC % 0.0 /100WBC PT (9.9-12.6) secs INR (0.8-1.2) Bld Gas Analysis Time Sample Site ABG pH (7.35-7.45) ABG pCO2 (34-45) mmHg ABG pO2 (80-100) mmHg ABG HCO3 (22.0-26.0) mmol/L ABG Total CO2 (21.0-29.0) MMOL/L ABG O2 Saturation (94-98) % ABG Base Excess (-2.0-3.0) mmol/L Norris Test VBG pH 7.287 L (7.31-7.41) Ionized Calcium 1.02 L (1.15-1.33) mmol/L Respiration Rate b/min O2 Delivery Device Vent Mode FiO2 Tidal Volume mL PEEP cmH2O Pressure Support Vent cmH2O Sodium (135-145) mmol/L Potassium (3.5-4.5) mmol/L Chloride (101-111) mmol/L Carbon Dioxide (21-32) mmol/L Anion Gap (6-13) BUN (6-20) mg/dL Creatinine (0.6-1.3) mg/dL Estimated GFR (MDRD) (>89) Glucose (74-104) mg/dL POC Whole Bld Glucose 132 H (70 - 100) mg/dL Lactic Acid (0.5-2.2) mmol/L Calcium (8.5-10.3) mg/dL Phosphorus (2.5-5.0) mg/dL Magnesium (1.7-2.3) mg/dL Total Bilirubin (0.2-1.0) mg/dL AST (10-42) IU/L ALT (10-60) IU/L Alkaline Phosphatase (42-121) IU/L Ammonia (18-72) umol/L Total Creatine Kinase (30-223) IU/L Troponin I High Sens (2.3-19.7) ng/L B-Natriuretic Peptide (5-100) pg/mL Total Protein (6.4-8.9) g/dL Albumin (3.2-5.5) g/dL Globulin (2.1-4.2) g/dL Albumin/Globulin Ratio (1.0-2.2) Lipase (11-82) U/L Procalcitonin Immunoas (<0.5) ng/mL Urine Color Urine Clarity (CLEAR) Urine pH (5.0-7.5) PH Ur Specific Ramsey (1.002-1.030) Urine Protein (NEGATIVE) mg/dL Urine Glucose (UA) (NEGATIVE) mg/dL Urine Ketones (NEGATIVE) mg/dL Urine Occult Blood (NEGATIVE) Urine Nitrite (NEGATIVE) Urine Bilirubin (NEGATIVE) Urine Urobilinogen (NORMAL) E.U./dL Ur Leukocyte Esterase (NEGATIVE) Urine RBC (0-5) /HPF Urine WBC (0-3) /HPF Ur Squamous Epith Cells (<= Few) Amorphous Sediment /LPF Urine Bacteria (None Seen) /HPF Urine Casts /LPF Urine Mucus Ur Microscopic Review Urine Culture Comments Nasal Adenovirus (PCR) Nasal B. parapertussis DNA (PCR) Nasal Coronavir 229E PCR Nasal Coronavir HKU1 PCR Nasal Coronavir NL63 PCR Nasal Coronavir OC43 PCR Nasal Enterovir/Rhinovir PCR Nasal Influenza B PCR Nasal Influenza A PCR Nasal Parainfluen 1 PCR Nasal Parainfluen 2 PCR Nasal Parainfluen 3 PCR Nasal Parainfluen 4 PCR Nasal RSV (PCR) Nasal Screen MRSA (PCR) (NEGATIVE) Nasal B.pertussis DNA PCR Nasal C.pneumoniae (PCR) Momo Human Metapneumo PCR Nasal M.pneumoniae (PCR) Nasal SARS-CoV-2 (PCR) Salicylates mg/dL Urine Opiates Screen (NEGATIVE) Ur Buprenorphine Scrn (NEGATIVE) Ur Oxycodone Screen (NEGATIVE) Urine Methadone Screen (NEGATIVE) Acetaminophen ug/mL Ur Barbiturates Screen (NEGATIVE) Ur Tricyclics Screen (NEGATIVE) Ur Phencyclidine Scrn (NEGATIVE) Ur Amphetamine Screen (NEGATIVE) U Methamphetamines Scrn (NEGATIVE) U Benzodiazepines Scrn (NEGATIVE) Urine Cocaine Screen (NEGATIVE) U Cannabinoids Screen (NEGATIVE) Ur Drug Screen Comment Ethyl Alcohol mg/dL 01/10/24 01/10/24 01/10/24 Range/Units 21:35 16:05 15:54 WBC (4.8-10.8) x10^3/uL RBC (4.70-6.10) 10^6/uL Hgb (14.0-18.0) g/dL Hct (42.0-52.0) % MCV (80.0-94.0) fL MCH (27.0-31.0) pg MCHC (32.0-36.0) g/dL RDW (12.0-15.0) % Plt Count (130-450) 10^3/uL MPV (7.4-11.4) fL Neut # (Auto) (1.5-6.6) 10^3/uL Lymph # (Auto) (1.5-3.5) 10^3/uL [place] # (Auto) (0.0-1.0) 10^3/uL Eos # (Auto) (0.0-0.7) 10^3/uL Baso # (Auto) (0.0-0.1) 10^3/uL Absolute Nucleated RBC x10^3/uL Nucleated RBC % /100WBC PT (9.9-12.6) secs INR (0.8-1.2) Bld Gas Analysis Time Sample Site ABG pH (7.35-7.45) ABG pCO2 (34-45) mmHg ABG pO2 (80-100) mmHg ABG HCO3 (22.0-26.0) mmol/L ABG Total CO2 (21.0-29.0) MMOL/L ABG O2 Saturation (94-98) % ABG Base Excess (-2.0-3.0) mmol/L Norris Test VBG pH (7.31-7.41) Ionized Calcium (1.15-1.33) mmol/L Respiration Rate b/min O2 Delivery Device Vent Mode FiO2 Tidal Volume mL PEEP cmH2O Pressure Support Vent cmH2O Sodium (135-145) mmol/L Potassium 3.0 L (3.5-4.5) mmol/L Chloride (101-111) mmol/L Carbon Dioxide (21-32) mmol/L Anion Gap (6-13) BUN (6-20) mg/dL Creatinine (0.6-1.3) mg/dL Estimated GFR (MDRD) (>89) Glucose (74-104) mg/dL POC Whole Bld Glucose (70 - 100) mg/dL Lactic Acid 1.7 (0.5-2.2) mmol/L Calcium 7.5 L (8.5-10.3) mg/dL Phosphorus 3.8 (2.5-5.0) mg/dL Magnesium 1.8 (1.7-2.3) mg/dL Total Bilirubin (0.2-1.0) mg/dL AST (10-42) IU/L ALT (10-60) IU/L Alkaline Phosphatase (42-121) IU/L Ammonia (18-72) umol/L Total Creatine Kinase (30-223) IU/L Troponin I High Sens (2.3-19.7) ng/L B-Natriuretic Peptide (5-100) pg/mL Total Protein (6.4-8.9) g/dL Albumin (3.2-5.5) g/dL Globulin (2.1-4.2) g/dL Albumin/Globulin Ratio (1.0-2.2) Lipase (11-82) U/L Procalcitonin Immunoas (<0.5) ng/mL Urine Color Urine Clarity (CLEAR) Urine pH (5.0-7.5) PH Ur Specific Ramsey (1.002-1.030) Urine Protein (NEGATIVE) mg/dL Urine Glucose (UA) (NEGATIVE) mg/dL Urine Ketones (NEGATIVE) mg/dL Urine Occult Blood (NEGATIVE) Urine Nitrite (NEGATIVE) Urine Bilirubin (NEGATIVE) Urine Urobilinogen (NORMAL) E.U./dL Ur Leukocyte Esterase (NEGATIVE) Urine RBC (0-5) /HPF Urine WBC (0-3) /HPF Ur Squamous Epith Cells (<= Few) Amorphous Sediment /LPF Urine Bacteria (None Seen) /HPF Urine Casts /LPF Urine Mucus Ur Microscopic Review Urine Culture Comments Nasal Adenovirus (PCR) Nasal B. parapertussis DNA (PCR) Nasal Coronavir 229E PCR Nasal Coronavir HKU1 PCR Nasal Coronavir NL63 PCR Nasal Coronavir OC43 PCR Nasal Enterovir/Rhinovir PCR Nasal Influenza B PCR Nasal Influenza A PCR Nasal Parainfluen 1 PCR Nasal Parainfluen 2 PCR Nasal Parainfluen 3 PCR Nasal Parainfluen 4 PCR Nasal RSV (PCR) Nasal Screen MRSA (PCR) NEGATIVE (NEGATIVE) Nasal B.pertussis DNA PCR Nasal C.pneumoniae (PCR) Momo Human Metapneumo PCR Nasal M.pneumoniae (PCR) Nasal SARS-CoV-2 (PCR) Salicylates mg/dL Urine Opiates Screen (NEGATIVE) Ur Buprenorphine Scrn (NEGATIVE) Ur Oxycodone Screen (NEGATIVE) Urine Methadone Screen (NEGATIVE) Acetaminophen ug/mL Ur Barbiturates Screen (NEGATIVE) Ur Tricyclics Screen (NEGATIVE) Ur Phencyclidine Scrn (NEGATIVE) Ur Amphetamine Screen (NEGATIVE) U Methamphetamines Scrn (NEGATIVE) U Benzodiazepines Scrn (NEGATIVE) Urine Cocaine Screen (NEGATIVE) U Cannabinoids Screen (NEGATIVE) Ur Drug Screen Comment Ethyl Alcohol mg/dL 01/10/24 01/10/24 01/10/24 Range/Units 15:54 11:10 10:53 WBC (4.8-10.8) x10^3/uL RBC (4.70-6.10) 10^6/uL Hgb (14.0-18.0) g/dL Hct (42.0-52.0) % MCV (80.0-94.0) fL MCH (27.0-31.0) pg MCHC (32.0-36.0) g/dL RDW (12.0-15.0) % Plt Count (130-450) 10^3/uL MPV (7.4-11.4) fL Neut # (Auto) (1.5-6.6) 10^3/uL Lymph # (Auto) (1.5-3.5) 10^3/uL [place] # (Auto) (0.0-1.0) 10^3/uL Eos # (Auto) (0.0-0.7) 10^3/uL Baso # (Auto) (0.0-0.1) 10^3/uL Absolute Nucleated RBC x10^3/uL Nucleated RBC % /100WBC PT (9.9-12.6) secs INR (0.8-1.2) Bld Gas Analysis Time 1117 Sample Site RIGHT BRACHIAL ABG pH 7.31 L (7.35-7.45) ABG pCO2 37 (34-45) mmHg ABG pO2 200 H* (80-100) mmHg ABG HCO3 17.9 L (22.0-26.0) mmol/L ABG Total CO2 19.0 L (21.0-29.0) MMOL/L ABG O2 Saturation 99 H (94-98) % ABG Base Excess -7.5 L (-2.0-3.0) mmol/L Norris Test POSITIVE VBG pH (7.31-7.41) Ionized Calcium (1.15-1.33) mmol/L Respiration Rate 16 b/min O2 Delivery Device VENTILATOR Vent Mode SIMV FiO2 80.00 Tidal Volume 500 mL PEEP 5 cmH2O Pressure Support Vent 10 cmH2O Sodium (135-145) mmol/L Potassium (3.5-4.5) mmol/L Chloride (101-111) mmol/L Carbon Dioxide (21-32) mmol/L Anion Gap (6-13) BUN (6-20) mg/dL Creatinine (0.6-1.3) mg/dL Estimated GFR (MDRD) (>89) Glucose (74-104) mg/dL POC Whole Bld Glucose (70 - 100) mg/dL Lactic Acid (0.5-2.2) mmol/L Calcium (8.5-10.3) mg/dL Phosphorus (2.5-5.0) mg/dL Magnesium (1.7-2.3) mg/dL Total Bilirubin (0.2-1.0) mg/dL AST (10-42) IU/L ALT (10-60) IU/L Alkaline Phosphatase (42-121) IU/L Ammonia (18-72) umol/L Total Creatine Kinase (30-223) IU/L Troponin I High Sens 2276.7 H* (2.3-19.7) ng/L B-Natriuretic Peptide (5-100) pg/mL Total Protein (6.4-8.9) g/dL Albumin (3.2-5.5) g/dL Globulin (2.1-4.2) g/dL Albumin/Globulin Ratio (1.0-2.2) Lipase (11-82) U/L Procalcitonin Immunoas 312.00 H* (<0.5) ng/mL Urine Color Urine Clarity (CLEAR) Urine pH (5.0-7.5) PH Ur Specific Ramsey (1.002-1.030) Urine Protein (NEGATIVE) mg/dL Urine Glucose (UA) (NEGATIVE) mg/dL Urine Ketones (NEGATIVE) mg/dL Urine Occult Blood (NEGATIVE) Urine Nitrite (NEGATIVE) Urine Bilirubin (NEGATIVE) Urine Urobilinogen (NORMAL) E.U./dL Ur Leukocyte Esterase (NEGATIVE) Urine RBC (0-5) /HPF Urine WBC (0-3) /HPF Ur Squamous Epith Cells (<= Few) Amorphous Sediment /LPF Urine Bacteria (None Seen) /HPF Urine Casts /LPF Urine Mucus Ur Microscopic Review Urine Culture Comments Nasal Adenovirus (PCR) NOT DETECTED Nasal B. parapertussis DNA (PCR) NOT DETECTED Nasal Coronavir 229E PCR NOT DETECTED Nasal Coronavir HKU1 PCR NOT DETECTED Nasal Coronavir NL63 PCR NOT DETECTED Nasal Coronavir OC43 PCR NOT DETECTED Nasal Enterovir/Rhinovir PCR NOT DETECTED Nasal Influenza B PCR NOT DETECTED Nasal Influenza A PCR NOT DETECTED Nasal Parainfluen 1 PCR NOT DETECTED Nasal Parainfluen 2 PCR NOT DETECTED Nasal Parainfluen 3 PCR NOT DETECTED Nasal Parainfluen 4 PCR NOT DETECTED Nasal RSV (PCR) NOT DETECTED Nasal Screen MRSA (PCR) (NEGATIVE) Nasal B.pertussis DNA PCR NOT DETECTED Nasal C.pneumoniae (PCR) NOT DETECTED Momo Human Metapneumo PCR NOT DETECTED Nasal M.pneumoniae (PCR) NOT DETECTED Nasal SARS-CoV-2 (PCR) NOT DETECTED Salicylates mg/dL Urine Opiates Screen (NEGATIVE) Ur Buprenorphine Scrn (NEGATIVE) Ur Oxycodone Screen (NEGATIVE) Urine Methadone Screen (NEGATIVE) Acetaminophen ug/mL Ur Barbiturates Screen (NEGATIVE) Ur Tricyclics Screen (NEGATIVE) Ur Phencyclidine Scrn (NEGATIVE) Ur Amphetamine Screen (NEGATIVE) U Methamphetamines Scrn (NEGATIVE) U Benzodiazepines Scrn (NEGATIVE) Urine Cocaine Screen (NEGATIVE) U Cannabinoids Screen (NEGATIVE) Ur Drug Screen Comment Ethyl Alcohol mg/dL 01/10/24 01/10/24 01/10/24 Range/Units 10:53 09:50 09:50 WBC (4.8-10.8) x10^3/uL RBC (4.70-6.10) 10^6/uL Hgb (14.0-18.0) g/dL Hct (42.0-52.0) % MCV (80.0-94.0) fL MCH (27.0-31.0) pg MCHC (32.0-36.0) g/dL RDW (12.0-15.0) % Plt Count (130-450) 10^3/uL MPV (7.4-11.4) fL Neut # (Auto) (1.5-6.6) 10^3/uL Lymph # (Auto) (1.5-3.5) 10^3/uL [place] # (Auto) (0.0-1.0) 10^3/uL Eos # (Auto) (0.0-0.7) 10^3/uL Baso # (Auto) (0.0-0.1) 10^3/uL Absolute Nucleated RBC x10^3/uL Nucleated RBC % /100WBC PT (9.9-12.6) secs INR (0.8-1.2) Bld Gas Analysis Time Sample Site ABG pH (7.35-7.45) ABG pCO2 (34-45) mmHg ABG pO2 (80-100) mmHg ABG HCO3 (22.0-26.0) mmol/L ABG Total CO2 (21.0-29.0) MMOL/L ABG O2 Saturation (94-98) % ABG Base Excess (-2.0-3.0) mmol/L Norris Test VBG pH (7.31-7.41) Ionized Calcium (1.15-1.33) mmol/L Respiration Rate b/min O2 Delivery Device Vent Mode FiO2 Tidal Volume mL PEEP cmH2O Pressure Support Vent cmH2O Sodium (135-145) mmol/L Potassium (3.5-4.5) mmol/L Chloride (101-111) mmol/L Carbon Dioxide (21-32) mmol/L Anion Gap (6-13) BUN (6-20) mg/dL Creatinine (0.6-1.3) mg/dL Estimated GFR (MDRD) (>89) Glucose (74-104) mg/dL POC Whole Bld Glucose (70 - 100) mg/dL Lactic Acid 2.8 H (0.5-2.2) mmol/L Calcium (8.5-10.3) mg/dL Phosphorus (2.5-5.0) mg/dL Magnesium (1.7-2.3) mg/dL Total Bilirubin (0.2-1.0) mg/dL AST (10-42) IU/L ALT (10-60) IU/L Alkaline Phosphatase (42-121) IU/L Ammonia 69.3 (18-72) umol/L Total Creatine Kinase (30-223) IU/L Troponin I High Sens (2.3-19.7) ng/L B-Natriuretic Peptide (5-100) pg/mL Total Protein (6.4-8.9) g/dL Albumin (3.2-5.5) g/dL Globulin (2.1-4.2) g/dL Albumin/Globulin Ratio (1.0-2.2) Lipase (11-82) U/L Procalcitonin Immunoas (<0.5) ng/mL Urine Color YELLOW Urine Clarity CLEAR (CLEAR) Urine pH 6.0 (5.0-7.5) PH Ur Specific Ramsey >=1.030 H (1.002-1.030) Urine Protein 100 H (NEGATIVE) mg/dL Urine Glucose (UA) NEGATIVE (NEGATIVE) mg/dL Urine Ketones TRACE (NEGATIVE) mg/dL Urine Occult Blood MODERATE H (NEGATIVE) Urine Nitrite NEGATIVE (NEGATIVE) Urine Bilirubin NEGATIVE (NEGATIVE) Urine Urobilinogen 0.2 (NORMAL) (NORMAL) E.U./dL Ur Leukocyte Esterase NEGATIVE (NEGATIVE) Urine RBC 0-5 (0-5) /HPF Urine WBC 0-3 (0-3) /HPF Ur Squamous Epith Cells MOD Squamous H (<= Few) Amorphous Sediment Moderate /LPF Urine Bacteria Few (None Seen) /HPF Urine Casts 3-5 Hyaline Casts /LPF Urine Mucus Moderate Strands Ur Microscopic Review INDICATED Urine Culture Comments NOT INDICATED Nasal Adenovirus (PCR) Nasal B. parapertussis DNA (PCR) Nasal Coronavir 229E PCR Nasal Coronavir HKU1 PCR Nasal Coronavir NL63 PCR Nasal Coronavir OC43 PCR Nasal Enterovir/Rhinovir PCR Nasal Influenza B PCR Nasal Influenza A PCR Nasal Parainfluen 1 PCR Nasal Parainfluen 2 PCR Nasal Parainfluen 3 PCR Nasal Parainfluen 4 PCR Nasal RSV (PCR) Nasal Screen MRSA (PCR) (NEGATIVE) Nasal B.pertussis DNA PCR Nasal C.pneumoniae (PCR) Momo Human Metapneumo PCR Nasal M.pneumoniae (PCR) Nasal SARS-CoV-2 (PCR) Salicylates mg/dL Urine Opiates Screen NEGATIVE (NEGATIVE) Ur Buprenorphine Scrn NEGATIVE (NEGATIVE) Ur Oxycodone Screen NEGATIVE (NEGATIVE) Urine Methadone Screen NEGATIVE (NEGATIVE) Acetaminophen ug/mL Ur Barbiturates Screen NEGATIVE (NEGATIVE) Ur Tricyclics Screen NEGATIVE (NEGATIVE) Ur Phencyclidine Scrn NEGATIVE (NEGATIVE) Ur Amphetamine Screen NEGATIVE (NEGATIVE) U Methamphetamines Scrn NEGATIVE (NEGATIVE) U Benzodiazepines Scrn NEGATIVE (NEGATIVE) Urine Cocaine Screen NEGATIVE (NEGATIVE) U Cannabinoids Screen NEGATIVE (NEGATIVE) Ur Drug Screen Comment CUTOFF CONC BELOW: Ethyl Alcohol mg/dL 04/26/24 04/26/24 04/26/24 Range/Units 09:50 09:50 09:50 WBC (4.8-10.8) x10^3/uL RBC (4.70-6.10) 10^6/uL Hgb (14.0-18.0) g/dL Hct (42.0-52.0) % MCV (80.0-94.0) fL MCH (27.0-31.0) pg MCHC (32.0-36.0) g/dL RDW (12.0-15.0) % Plt Count (130-450) 10^3/uL MPV (7.4-11.4) fL Neut # (Auto) (1.5-6.6) 10^3/uL Lymph # (Auto) (1.5-3.5) 10^3/uL [place] # (Auto) (0.0-1.0) 10^3/uL Eos # (Auto) (0.0-0.7) 10^3/uL Baso # (Auto) (0.0-0.1) 10^3/uL Absolute Nucleated RBC x10^3/uL Nucleated RBC % /100WBC PT (9.9-12.6) secs INR (0.8-1.2) Bld Gas Analysis Time Sample Site ABG pH (7.35-7.45) ABG pCO2 (34-45) mmHg ABG pO2 (80-100) mmHg ABG HCO3 (22.0-26.0) mmol/L ABG Total CO2 (21.0-29.0) MMOL/L ABG O2 Saturation (94-98) % ABG Base Excess (-2.0-3.0) mmol/L Norris Test VBG pH (7.31-7.41) Ionized Calcium (1.15-1.33) mmol/L Respiration Rate b/min O2 Delivery Device Vent Mode FiO2 Tidal Volume mL PEEP cmH2O Pressure Support Vent cmH2O Sodium 134 L (135-145) mmol/L Potassium 3.5 (3.5-4.5) mmol/L Chloride 103 (101-111) mmol/L Carbon Dioxide 21 (21-32) mmol/L Anion Gap 10.0 (6-13) BUN 40 H (6-20) mg/dL Creatinine 2.5 H (0.6-1.3) mg/dL Estimated GFR (MDRD) 25 L (>89) Glucose 275 H (74-104) mg/dL POC Whole Bld Glucose (70 - 100) mg/dL Lactic Acid (0.5-2.2) mmol/L Calcium 8.3 L (8.5-10.3) mg/dL Phosphorus < 1.0 L* (2.5-5.0) mg/dL Magnesium 1.3 L (1.7-2.3) mg/dL Total Bilirubin 1.9 H (0.2-1.0) mg/dL AST 408 H (10-42) IU/L ALT 296 H (10-60) IU/L Alkaline Phosphatase 68 (42-121) IU/L Ammonia (18-72) umol/L Total Creatine Kinase 210 (30-223) IU/L Troponin I High Sens 499.8 H* (2.3-19.7) ng/L B-Natriuretic Peptide 133 H (5-100) pg/mL Total Protein 5.9 L (6.4-8.9) g/dL Albumin 3.3 (3.2-5.5) g/dL Globulin 2.6 (2.1-4.2) g/dL Albumin/Globulin Ratio 1.3 (1.0-2.2) Lipase 43 (11-82) U/L Procalcitonin Immunoas (<0.5) ng/mL Urine Color Urine Clarity (CLEAR) Urine pH (5.0-7.5) PH Ur Specific Ramsey (1.002-1.030) Urine Protein (NEGATIVE) mg/dL Urine Glucose (UA) (NEGATIVE) mg/dL Urine Ketones (NEGATIVE) mg/dL Urine Occult Blood (NEGATIVE) Urine Nitrite (NEGATIVE) Urine Bilirubin (NEGATIVE) Urine Urobilinogen (NORMAL) E.U./dL Ur Leukocyte Esterase (NEGATIVE) Urine RBC (0-5) /HPF Urine WBC (0-3) /HPF Ur Squamous Epith Cells (<= Few) Amorphous Sediment /LPF Urine Bacteria (None Seen) /HPF Urine Casts /LPF Urine Mucus Ur Microscopic Review Urine Culture Comments Nasal Adenovirus (PCR) Nasal B. parapertussis DNA (PCR) Nasal Coronavir 229E PCR Nasal Coronavir HKU1 PCR Nasal Coronavir NL63 PCR Nasal Coronavir OC43 PCR Nasal Enterovir/Rhinovir PCR Nasal Influenza B PCR Nasal Influenza A PCR Nasal Parainfluen 1 PCR Nasal Parainfluen 2 PCR Nasal Parainfluen 3 PCR Nasal Parainfluen 4 PCR Nasal RSV (PCR) Nasal Screen MRSA (PCR) (NEGATIVE) Nasal B.pertussis DNA PCR Nasal C.pneumoniae (PCR) Momo Human Metapneumo PCR Nasal M.pneumoniae (PCR) Nasal SARS-CoV-2 (PCR) Salicylates < 1.5 mg/dL Urine Opiates Screen (NEGATIVE) Ur Buprenorphine Scrn (NEGATIVE) Ur Oxycodone Screen (NEGATIVE) Urine Methadone Screen (NEGATIVE) Acetaminophen 0.1 ug/mL Ur Barbiturates Screen (NEGATIVE) Ur Tricyclics Screen (NEGATIVE) Ur Phencyclidine Scrn (NEGATIVE) Ur Amphetamine Screen (NEGATIVE) U Methamphetamines Scrn (NEGATIVE) U Benzodiazepines Scrn (NEGATIVE) Urine Cocaine Screen (NEGATIVE) U Cannabinoids Screen (NEGATIVE) Ur Drug Screen Comment Ethyl Alcohol < 10.0 mg/dL 01/10/24 01/10/24 Range/Units 09:50 09:50 WBC 11.7 H (4.8-10.8) x10^3/uL RBC 4.95 (4.70-6.10) 10^6/uL Hgb 15.0 (14.0-18.0) g/dL Hct 48.8 (42.0-52.0) % MCV 98.6 H (80.0-94.0) fL MCH 30.3 (27.0-31.0) pg MCHC 30.7 L (32.0-36.0) g/dL RDW 14.0 (12.0-15.0) % Plt Count 151 (130-450) 10^3/uL MPV 12.0 H (7.4-11.4) fL Neut # (Auto) 9.6 H (1.5-6.6) 10^3/uL Lymph # (Auto) 1.1 L (1.5-3.5) 10^3/uL [place] # (Auto) 0.7 (0.0-1.0) 10^3/uL Eos # (Auto) 0.0 (0.0-0.7) 10^3/uL Baso # (Auto) 0.0 (0.0-0.1) 10^3/uL Absolute Nucleated RBC 0.00 x10^3/uL Nucleated RBC % 0.0 /100WBC PT 17.4 H (9.9-12.6) secs INR 1.6 H (0.8-1.2) Bld Gas Analysis Time Sample Site ABG pH (7.35-7.45) ABG pCO2 (34-45) mmHg ABG pO2 (80-100) mmHg ABG HCO3 (22.0-26.0) mmol/L ABG Total CO2 (21.0-29.0) MMOL/L ABG O2 Saturation (94-98) % ABG Base Excess (-2.0-3.0) mmol/L Norris Test VBG pH (7.31-7.41) Ionized Calcium (1.15-1.33) mmol/L Respiration Rate b/min O2 Delivery Device Vent Mode FiO2 Tidal Volume mL PEEP cmH2O Pressure Support Vent cmH2O Sodium (135-145) mmol/L Potassium (3.5-4.5) mmol/L Chloride (101-111) mmol/L Carbon Dioxide (21-32) mmol/L Anion Gap (6-13) BUN (6-20) mg/dL Creatinine (0.6-1.3) mg/dL Estimated GFR (MDRD) (>89) Glucose (74-104) mg/dL POC Whole Bld Glucose (70 - 100) mg/dL Lactic Acid (0.5-2.2) mmol/L Calcium (8.5-10.3) mg/dL Phosphorus (2.5-5.0) mg/dL Magnesium (1.7-2.3) mg/dL Total Bilirubin (0.2-1.0) mg/dL AST (10-42) IU/L ALT (10-60) IU/L Alkaline Phosphatase (42-121) IU/L Ammonia (18-72) umol/L Total Creatine Kinase (30-223) IU/L Troponin I High Sens (2.3-19.7) ng/L B-Natriuretic Peptide (5-100) pg/mL Total Protein (6.4-8.9) g/dL Albumin (3.2-5.5) g/dL Globulin (2.1-4.2) g/dL Albumin/Globulin Ratio (1.0-2.2) Lipase (11-82) U/L Procalcitonin Immunoas (<0.5) ng/mL Urine Color Urine Clarity (CLEAR) Urine pH (5.0-7.5) PH Ur Specific Ramsey (1.002-1.030) Urine Protein (NEGATIVE) mg/dL Urine Glucose (UA) (NEGATIVE) mg/dL Urine Ketones (NEGATIVE) mg/dL Urine Occult Blood (NEGATIVE) Urine Nitrite (NEGATIVE) Urine Bilirubin (NEGATIVE) Urine Urobilinogen (NORMAL) E.U./dL Ur Leukocyte Esterase (NEGATIVE) Urine RBC (0-5) /HPF Urine WBC (0-3) /HPF Ur Squamous Epith Cells (<= Few) Amorphous Sediment /LPF Urine Bacteria (None Seen) /HPF Urine Casts /LPF Urine Mucus Ur Microscopic Review Urine Culture Comments Nasal Adenovirus (PCR) Nasal B. parapertussis DNA (PCR) Nasal Coronavir 229E PCR Nasal Coronavir HKU1 PCR Nasal Coronavir NL63 PCR Nasal Coronavir OC43 PCR Nasal Enterovir/Rhinovir PCR Nasal Influenza B PCR Nasal Influenza A PCR Nasal Parainfluen 1 PCR Nasal Parainfluen 2 PCR Nasal Parainfluen 3 PCR Nasal Parainfluen 4 PCR Nasal RSV (PCR) Nasal Screen MRSA (PCR) (NEGATIVE) Nasal B.pertussis DNA PCR Nasal C.pneumoniae (PCR) Momo Human Metapneumo PCR Nasal M.pneumoniae (PCR) Nasal SARS-CoV-2 (PCR) Salicylates mg/dL Urine Opiates Screen (NEGATIVE) Ur Buprenorphine Scrn (NEGATIVE) Ur Oxycodone Screen (NEGATIVE) Urine Methadone Screen (NEGATIVE) Acetaminophen ug/mL Ur Barbiturates Screen (NEGATIVE) Ur Tricyclics Screen (NEGATIVE) Ur Phencyclidine Scrn (NEGATIVE) Ur Amphetamine Screen (NEGATIVE) U Methamphetamines Scrn (NEGATIVE) U Benzodiazepines Scrn (NEGATIVE) Urine Cocaine Screen (NEGATIVE) U Cannabinoids Screen (NEGATIVE) Ur Drug Screen Comment Ethyl Alcohol mg/dL - Diagnostic Imaging Diagnostic Imaging Results: positive: Other (Pending CXR this morning.) Sepsis Event Note (H) - Evaluation Current Stage of Sepsis: Septic shock Possible source of Sepsis: positive: Pulmonary - Sepsis Criteria Sepsis Criteria: Recorded Temperature greater than 38.3C or Less than 36C, Recorded Heart Rate greater than 90 bpm, Recorded Respiratory Rate greater than 20, Respiratory: Increasing oxygen requirements, LIAISON OFFICER: altered consciousness (unrelated to primary neuro pathology), SBP drop more than 40mHg, MAP less than 65 mmHg, SBP less than 90 mmHg, Renal: urine output less than 0.5ml/kg/hr for 2 hours or creatinine gr, Metabolic: lactate > 2 mmol/L Assessment/Plan - Problem List (1) Acute respiratory failure Impression: Stable on vent. Treat the underlying pneumonia. Qualifiers: Respiratory failure complication: hypoxia Qualified Code(s): J96.01 - Acute respiratory failure with hypoxia (2) Type 2 ID (myocardial infarction) Impression: Family will not pursue any aggressive procedure. This is from septic shock and pneumonia. (3) Hyponatremia Impression: Resolved with IVF. (4) Hypomagnesemia Impression: Replaced. (5) Hypophosphatemia Impression: Replaced. (6) Transaminitis Impression: AST/ALT are coming down. T prerna is slightly up. Could be from alcohol abuse a nd/or septic shock. Repeat CMP in am. (7) Septic shock Impression: BP is supported with levophed and IVF. Continue with those. (8) DEXTER (acute kidney injury) Impression: Not much of UOP and Cr is going up. Will continue with current support. Repeat CMP in am. (9) Pneumonia Impression: Stabilizing on vent. Will continue with IV abx. Change vancomycin to linezolid due to DEXTER. Qualifiers: Pneumonia type: due to unspecified organism Laterality: bilateral Lung location: lower lobe of lung Qualified Code(s): J18.9 - Pneumonia, unspecified organism (10) Thrombocytopenia Impression: This is also from septic shock. No Heparin. Repeat CBC in am. (11) Goals of care, counseling/discussion Impression: Discussed with his and daughter yesterday and they don't want to pursue any invasive procedures or aggressive care at this point. After discussion with his comfort care was decided. Will extubate him and put him on comfort meausres only with dilaudid drip. Assessment Discharge Assessment: This is Day of Life #[] for this [premature/term/late-term/late premature] baby [boy/girl] born via delivery at and is ready for discharge. * [] * [] * []
--- NOTE | 2024-01-11 10:12 | XRAY Report ---
PROCEDURE: Chest 1V INDICATIONS: Intubated with acute respiratory failure TECHNIQUE: One view of the chest was acquired. COMPARISON: 01/10/2024 FINDINGS: Surgical changes and devices: An endotracheal tube is seen, with the tip 3 cm above the michelle. A ga stric tube is seen, with the tip not visible within the [id number] of this image, although clearly below the diaphragm. There is a right-sided central line seen, with the tip overlying the right atr ium. A stable left-sided pacer device is seen. Lungs and pleura: On the semiupright images, no large pneumothorax or large pleural effusions can be seen. No focal infiltrates are seen. The lungs are slightly better aerated on the current study th an on the prior. Mediastinum: Mediastinal contours appear normal. Heart size is mildly enlarged. Bones and chest wall: No suspicious bony lesions. Age-appropriate degenerative changes are seen. O verlying soft tissues appear unremarkable. IMPRESSION: The lungs are slightly better aerated on the current study than on the prior. The tip of the right-sided central line is again seen overlying the right atrium. The tip of endotracheal tube is seen 3 cm above the michelle. There is mild cardiomegaly. Reviewed by: Wale Vera MD on 01/11/2024 9:11 AM BRYAN Approved by: Wale Vera MD on 01/11/2024 9:11 AM BRYAN Station ID: [id number]
[2024-01-11] MEDS ORDERED: LORazepam 2 MG/ML VIAL IVP PRN (10:18)
[2024-01-11] MEDS ORDERED: HALOPERIDOL 5 MG/ML VIAL IVP PRN (10:18)
[2024-01-11] MEDS ORDERED: ACETAMINOPHEN 650 MG SUPP PR PRN (10:18)
--- NOTE | 2024-01-11 10:52 | ADVANCE CARE PLANNING NOTE ---
Advance Care Planning - Planning Encounter Date: 01/11/24 Time: 10:00 Purpose: Goals of care for this critically ill patient with acute hypoxemic respiratory failure, pneumonia, septic shock and DEXTER. Parties in Attendance: , daughter at the bedside with the pt who is intubated and sedated. Decisional Capacity of the Patient: No. - Diagnosis for Encounter (1) Acute respiratory failure Qualifiers: Respiratory failure complication: hypoxia Qualified Code(s): J96.01 - Acute respiratory failure with hypoxia (2) Type 2 [place] (myocardial infarction) Summary: From septic shock and hypoxemic respiratory failure. (3) Hyponatremia Summary: from sepsis and DEXTER (7) Septic shock Summary: from pneumonia (8) DEXTER (acute kidney injury) Summary: from septic shock and dehydration. (9) Pneumonia Qualifiers: Pneumonia type: due to unspecified organism Laterality: bilateral Lung location: lower lobe of lung Qualified Code(s): J18.9 - Pneumonia, unspecified organism - Encounter Subjective/Patient's Story: The pt is intubated and sedated so he can't provide any history. His and daughter decided with DNR. Objective/Medical Story: The pt has critical condition of acute hypoxemic respiratory failure, pneumonia, septic shock and DEXTER. His renal function is getting worse with minimal UOP. Goals of Care: Comfort care and withdraw the current care. Plan: Extubate and start comfort care with dilaudid drip. Code Status: Do Not Attempt Resuscitation (Comfort measures only) Time spent on advance care plannin min
--- NOTE | 2024-01-11 11:12 | PROVIDER PROGRESS NOTE ---
Subjective - Prog Note Date Prog Note Date: 01/11/24 Prog Note Time: 11:10 - Subjective Subjective: intubated and sedated and then extubated. Objective - Vital Signs/Intake & Output Reviewed Vital Signs: Yes Vital Signs: Vital Signs Temp Pulse Pulse Resp BP Pulse Ox 01/11/24 10:35 80 14 134/80 H 92 01/11/24 10:30 36.7 C 75 15 120/71 99 01/11/24 10:15 36.7 C 75 14 109/67 95 01/11/24 10:00 80 12 117/62 98 01/11/24 09:16 80 12 150/72 H 100 01/11/24 09:00 36.8 C 89 14 154/62 H 100 01/11/24 08:45 82 14 136/56 H 97 01/11/24 08:40 78 01/11/24 08:30 79 16 134/79 H 98 01/11/24 08:15 79 18 140/58 H 94 01/11/24 08:00 36.9 C 82 16 134/71 H 96 01/11/24 07:45 36.7 C 80 16 119/71 98 Intake & Output: Intake & Output 01/08/24 01/09/24 01/10/24 01/11/24 23:59 23:59 23:59 23:59 Intake Total 4224.225 2776.241 Output Total 114 211 Balance 4110.225 2565.241 - Objective General Appearance: positive: Other (intubated and sedated and then extubated without any response.) Eyes Bilateral: positive: Other (Closed) ENT: positive: Other (ET tube in place and then extubated) Neck: positive: Nml inspection, No JVD Respiratory: positive: Other (Extubated and tongue was blocking airway so oral airway has been placed.) Cardiovascular: positive: Regular rate & rhythm Abdomen: positive: Nml bowel sounds, No distention Skin: positive: Color nml, No rash, Warm, Dry Extremities: positive: Nml appearance, No pedal edema Neurologic/Psychiatric: positive: Other (Not responding) - Lab Results Fish Bones: 01/11/24 04:20 01/11/24 04:20 Other Labs: Lab Results x24hrs 01/11/24 01/11/24 01/11/24 Range/Units 05:40 04:20 04:20 WBC (4.8-10.8) x10^3/uL RBC (4.70-6.10) 10^6/uL Hgb (14.0-18.0) g/dL Hct (42.0-52.0) % MCV (80.0-94.0) fL MCH (27.0-31.0) pg MCHC (32.0-36.0) g/dL RDW (12.0-15.0) % Plt Count (130-450) 10^3/uL MPV (7.4-11.4) fL Neut # (Auto) (1.5-6.6) 10^3/uL Lymph # (Auto) (1.5-3.5) 10^3/uL [place] # (Auto) (0.0-1.0) 10^3/uL Eos # (Auto) (0.0-0.7) 10^3/uL Baso # (Auto) (0.0-0.1) 10^3/uL Absolute Nucleated RBC x10^3/uL Nucleated RBC % /100WBC Bld Gas Analysis Time 0542 Sample Site RIGHT RADIAL ABG pH 7.36 (7.35-7.45) ABG pCO2 24 L* (34-45) mmHg ABG pO2 168 H* (80-100) mmHg ABG HCO3 13.2 L (22.0-26.0) mmol/L ABG Total CO2 14.0 L (21.0-29.0) MMOL/L ABG O2 Saturation 99 H (94-98) % ABG Base Excess -10.1 L (-2.0-3.0) mmol/L Norris Test POSITIVE VBG pH 7.277 L (7.31-7.41) Ionized Calcium 0.99 L (1.15-1.33) mmol/L Respiration Rate 16 b/min O2 Delivery Device VENTILATOR Vent Mode SIMV FiO2 40.00 Tidal Volume 500 mL PEEP 5 cmH2O Pressure Support Vent cmH2O Sodium 137 (135-145) mmol/L Potassium 3.4 L (3.5-4.5) mmol/L Chloride 108 (101-111) mmol/L Carbon Dioxide 16 L (21-32) mmol/L Anion Gap 13.0 (6-13) BUN 51 H (6-20) mg/dL Creatinine 2.9 H (0.6-1.3) mg/dL Estimated GFR (MDRD) 21 L (>89) Glucose 121 H (74-104) mg/dL POC Whole Bld Glucose (70 - 100) mg/dL Lactic Acid (0.5-2.2) mmol/L Calcium 7.4 L (8.5-10.3) mg/dL Phosphorus 4.2 (2.5-5.0) mg/dL Magnesium 1.9 (1.7-2.3) mg/dL Total Bilirubin 2.0 H (0.2-1.0) mg/dL AST 206 H (10-42) IU/L ALT 318 H (10-60) IU/L Alkaline Phosphatase 64 (42-121) IU/L Troponin I High Sens (2.3-19.7) ng/L Total Protein 5.6 L (6.4-8.9) g/dL Albumin 3.0 L (3.2-5.5) g/dL Globulin 2.6 (2.1-4.2) g/dL Albumin/Globulin Ratio 1.2 (1.0-2.2) Procalcitonin Immunoas (<0.5) ng/mL Nasal Adenovirus (PCR) Nasal B. parapertussis DNA (PCR) Nasal Coronavir 229E PCR Nasal Coronavir HKU1 PCR Nasal Coronavir NL63 PCR Nasal Coronavir OC43 PCR Nasal Enterovir/Rhinovir PCR Nasal Influenza B PCR Nasal Influenza A PCR Nasal Parainfluen 1 PCR Nasal Parainfluen 2 PCR Nasal Parainfluen 3 PCR Nasal Parainfluen 4 PCR Nasal RSV (PCR) Nasal Screen MRSA (PCR) (NEGATIVE) Nasal B.pertussis DNA PCR Nasal C.pneumoniae (PCR) Momo Human Metapneumo PCR Nasal M.pneumoniae (PCR) Nasal SARS-CoV-2 (PCR) 01/11/24 01/11/24 01/10/24 Range/Units 04:20 00:09 21:35 WBC 17.3 H (4.8-10.8) x10^3/uL RBC 4.78 (4.70-6.10) 10^6/uL Hgb 14.4 (14.0-18.0) g/dL Hct 45.0 (42.0-52.0) % MCV 94.1 H (80.0-94.0) fL MCH 30.1 (27.0-31.0) pg MCHC 32.0 (32.0-36.0) g/dL RDW 14.5 (12.0-15.0) % Plt Count 35 L* (130-450) 10^3/uL MPV 12.5 H (7.4-11.4) fL Neut # (Auto) 14.2 H (1.5-6.6) 10^3/uL Lymph # (Auto) 1.8 (1.5-3.5) 10^3/uL [place] # (Auto) 1.1 H (0.0-1.0) 10^3/uL Eos # (Auto) 0.0 (0.0-0.7) 10^3/uL Baso # (Auto) 0.0 (0.0-0.1) 10^3/uL Absolute Nucleated RBC 0.00 x10^3/uL Nucleated RBC % 0.0 /100WBC Bld Gas Analysis Time Sample Site ABG pH (7.35-7.45) ABG pCO2 (34-45) mmHg ABG pO2 (80-100) mmHg ABG HCO3 (22.0-26.0) mmol/L ABG Total CO2 (21.0-29.0) MMOL/L ABG O2 Saturation (94-98) % ABG Base Excess (-2.0-3.0) mmol/L Norris Test VBG pH 7.287 L (7.31-7.41) Ionized Calcium 1.02 L (1.15-1.33) mmol/L Respiration Rate b/min O2 Delivery Device Vent Mode FiO2 Tidal Volume mL PEEP cmH2O Pressure Support Vent cmH2O Sodium (135-145) mmol/L Potassium (3.5-4.5) mmol/L Chloride (101-111) mmol/L Carbon Dioxide (21-32) mmol/L Anion Gap (6-13) BUN (6-20) mg/dL Creatinine (0.6-1.3) mg/dL Estimated GFR (MDRD) (>89) Glucose (74-104) mg/dL POC Whole Bld Glucose 132 H (70 - 100) mg/dL Lactic Acid (0.5-2.2) mmol/L Calcium (8.5-10.3) mg/dL Phosphorus (2.5-5.0) mg/dL Magnesium (1.7-2.3) mg/dL Total Bilirubin (0.2-1.0) mg/dL AST (10-42) IU/L ALT (10-60) IU/L Alkaline Phosphatase (42-121) IU/L Troponin I High Sens (2.3-19.7) ng/L Total Protein (6.4-8.9) g/dL Albumin (3.2-5.5) g/dL Globulin (2.1-4.2) g/dL Albumin/Globulin Ratio (1.0-2.2) Procalcitonin Immunoas (<0.5) ng/mL Nasal Adenovirus (PCR) Nasal B. parapertussis DNA (PCR) Nasal Coronavir 229E PCR Nasal Coronavir HKU1 PCR Nasal Coronavir NL63 PCR Nasal Coronavir OC43 PCR Nasal Enterovir/Rhinovir PCR Nasal Influenza B PCR Nasal Influenza A PCR Nasal Parainfluen 1 PCR Nasal Parainfluen 2 PCR Nasal Parainfluen 3 PCR Nasal Parainfluen 4 PCR Nasal RSV (PCR) Nasal Screen MRSA (PCR) (NEGATIVE) Nasal B.pertussis DNA PCR Nasal C.pneumoniae (PCR) Momo Human Metapneumo PCR Nasal M.pneumoniae (PCR) Nasal SARS-CoV-2 (PCR) 01/10/24 01/10/24 01/10/24 Range/Units 21:35 16:05 15:54 WBC (4.8-10.8) x10^3/uL RBC (4.70-6.10) 10^6/uL Hgb (14.0-18.0) g/dL Hct (42.0-52.0) % MCV (80.0-94.0) fL MCH (27.0-31.0) pg MCHC (32.0-36.0) g/dL RDW (12.0-15.0) % Plt Count (130-450) 10^3/uL MPV (7.4-11.4) fL Neut # (Auto) (1.5-6.6) 10^3/uL Lymph # (Auto) (1.5-3.5) 10^3/uL [place] # (Auto) (0.0-1.0) 10^3/uL Eos # (Auto) (0.0-0.7) 10^3/uL Baso # (Auto) (0.0-0.1) 10^3/uL Absolute Nucleated RBC x10^3/uL Nucleated RBC % /100WBC Bld Gas Analysis Time Sample Site ABG pH (7.35-7.45) ABG pCO2 (34-45) mmHg ABG pO2 (80-100) mmHg ABG HCO3 (22.0-26.0) mmol/L ABG Total CO2 (21.0-29.0) MMOL/L ABG O2 Saturation (94-98) % ABG Base Excess (-2.0-3.0) mmol/L Norris Test VBG pH (7.31-7.41) Ionized Calcium (1.15-1.33) mmol/L Respiration Rate b/min O2 Delivery Device Vent Mode FiO2 Tidal Volume mL PEEP cmH2O Pressure Support Vent cmH2O Sodium (135-145) mmol/L Potassium 3.0 L (3.5-4.5) mmol/L Chloride (101-111) mmol/L Carbon Dioxide (21-32) mmol/L Anion Gap (6-13) BUN (6-20) mg/dL Creatinine (0.6-1.3) mg/dL Estimated GFR (MDRD) (>89) Glucose (74-104) mg/dL POC Whole Bld Glucose (70 - 100) mg/dL Lactic Acid 1.7 (0.5-2.2) mmol/L Calcium 7.5 L (8.5-10.3) mg/dL Phosphorus 3.8 (2.5-5.0) mg/dL Magnesium 1.8 (1.7-2.3) mg/dL Total Bilirubin (0.2-1.0) mg/dL AST (10-42) IU/L ALT (10-60) IU/L Alkaline Phosphatase (42-121) IU/L Troponin I High Sens (2.3-19.7) ng/L Total Protein (6.4-8.9) g/dL Albumin (3.2-5.5) g/dL Globulin (2.1-4.2) g/dL Albumin/Globulin Ratio (1.0-2.2) Procalcitonin Immunoas (<0.5) ng/mL Nasal Adenovirus (PCR) Nasal B. parapertussis DNA (PCR) Nasal Coronavir 229E PCR Nasal Coronavir HKU1 PCR Nasal Coronavir NL63 PCR Nasal Coronavir OC43 PCR Nasal Enterovir/Rhinovir PCR Nasal Influenza B PCR Nasal Influenza A PCR Nasal Parainfluen 1 PCR Nasal Parainfluen 2 PCR Nasal Parainfluen 3 PCR Nasal Parainfluen 4 PCR Nasal RSV (PCR) Nasal Screen MRSA (PCR) NEGATIVE (NEGATIVE) Nasal B.pertussis DNA PCR Nasal C.pneumoniae (PCR) Momo Human Metapneumo PCR Nasal M.pneumoniae (PCR) Nasal SARS-CoV-2 (PCR) 01/10/24 01/10/24 01/10/24 Range/Units 15:54 11:10 10:53 WBC (4.8-10.8) x10^3/uL RBC (4.70-6.10) 10^6/uL Hgb (14.0-18.0) g/dL Hct (42.0-52.0) % MCV (80.0-94.0) fL MCH (27.0-31.0) pg MCHC (32.0-36.0) g/dL RDW (12.0-15.0) % Plt Count (130-450) 10^3/uL MPV (7.4-11.4) fL Neut # (Auto) (1.5-6.6) 10^3/uL Lymph # (Auto) (1.5-3.5) 10^3/uL [place] # (Auto) (0.0-1.0) 10^3/uL Eos # (Auto) (0.0-0.7) 10^3/uL Baso # (Auto) (0.0-0.1) 10^3/uL Absolute Nucleated RBC x10^3/uL Nucleated RBC % /100WBC Bld Gas Analysis Time 1117 Sample Site RIGHT BRACHIAL ABG pH 7.31 L (7.35-7.45) ABG pCO2 37 (34-45) mmHg ABG pO2 200 H* (80-100) mmHg ABG HCO3 17.9 L (22.0-26.0) mmol/L ABG Total CO2 19.0 L (21.0-29.0) MMOL/L ABG O2 Saturation 99 H (94-98) % ABG Base Excess -7.5 L (-2.0-3.0) mmol/L Norris Test POSITIVE VBG pH (7.31-7.41) Ionized Calcium (1.15-1.33) mmol/L Respiration Rate 16 b/min O2 Delivery Device VENTILATOR Vent Mode SIMV FiO2 80.00 Tidal Volume 500 mL PEEP 5 cmH2O Pressure Support Vent 10 cmH2O Sodium (135-145) mmol/L Potassium (3.5-4.5) mmol/L Chloride (101-111) mmol/L Carbon Dioxide (21-32) mmol/L Anion Gap (6-13) BUN (6-20) mg/dL Creatinine (0.6-1.3) mg/dL Estimated GFR (MDRD) (>89) Glucose (74-104) mg/dL POC Whole Bld Glucose (70 - 100) mg/dL Lactic Acid (0.5-2.2) mmol/L Calcium (8.5-10.3) mg/dL Phosphorus (2.5-5.0) mg/dL Magnesium (1.7-2.3) mg/dL Total Bilirubin (0.2-1.0) mg/dL AST (10-42) IU/L ALT (10-60) IU/L Alkaline Phosphatase (42-121) IU/L Troponin I High Sens 2276.7 H* (2.3-19.7) ng/L Total Protein (6.4-8.9) g/dL Albumin (3.2-5.5) g/dL Globulin (2.1-4.2) g/dL Albumin/Globulin Ratio (1.0-2.2) Procalcitonin Immunoas 312.00 H* (<0.5) ng/mL Nasal Adenovirus (PCR) NOT DETECTED Nasal B. parapertussis DNA (PCR) NOT DETECTED Nasal Coronavir 229E PCR NOT DETECTED Nasal Coronavir HKU1 PCR NOT DETECTED Nasal Coronavir NL63 PCR NOT DETECTED Nasal Coronavir OC43 PCR NOT DETECTED Nasal Enterovir/Rhinovir PCR NOT DETECTED Nasal Influenza B PCR NOT DETECTED Nasal Influenza A PCR NOT DETECTED Nasal Parainfluen 1 PCR NOT DETECTED Nasal Parainfluen 2 PCR NOT DETECTED Nasal Parainfluen 3 PCR NOT DETECTED Nasal Parainfluen 4 PCR NOT DETECTED Nasal RSV (PCR) NOT DETECTED Nasal Screen MRSA (PCR) (NEGATIVE) Nasal B.pertussis DNA PCR NOT DETECTED Nasal C.pneumoniae (PCR) NOT DETECTED Momo Human Metapneumo PCR NOT DETECTED Nasal M.pneumoniae (PCR) NOT DETECTED Nasal SARS-CoV-2 (PCR) NOT DETECTED - Diagnostic Imaging Diagnostic Imaging Results: positive: Final report reviewed Sepsis Event Note (H) - Evaluation Current Stage of Sepsis: Septic shock Possible source of Sepsis: positive: Pulmonary - Sepsis Criteria Sepsis Criteria: Recorded Temperature greater than 38.3C or Less than 36C, Recorded Heart Rate greater than 90 bpm, Recorded Respiratory Rate greater than 20, Respiratory: Increasing oxygen requirements, TRAINING AND DEVELOPMENT OFFICER: altered consciousness (unrelated to primary neuro pathology), SBP drop more than 40mHg, MAP less than 65 mmHg, SBP less than 90 mmHg, Renal: urine output less than 0.5ml/kg/hr for 2 hours or creatinine gr, Metabolic: lactate > 2 mmol/L Assessment/Plan - Problem List (1) Acute respiratory failure Impression: Was stable on Vent. After extubation, he couldn't manage his airway since his tongue is blocking airway. Oral airway for now. Qualifiers: Respiratory failure complication: hypoxia Qualified Code(s): J96.01 - Acute respiratory failure with hypoxia (2) Type 2 CA (myocardial infarction) Impression: From septic shock and hypoxemia. (3) Hyponatremia Impression: Improved with IVF. (4) Hypomagnesemia Impression: Replaced (5) Hypophosphatemia Impression: Replaced. (6) Transaminitis Impression: Improving. (7) Septic shock Impression: Stabilized with levophed, IVF and abx (8) DEXTER (acute kidney injury) Impression: Worsening with minimal UOP. (9) Pneumonia Impression: Stabilized with abx. Qualifiers: Pneumonia type: due to unspecified organism Laterality: bilateral Lung location: lower lobe of lung Qualified Code(s): J18.9 - Pneumonia, unspecified organism (10) Thrombocytopenia Impression: New. Likely from septic shock. DC heparin. (11) Goals of care, counseling/discussion Impression: Discussed with and daughter and they agreed with comfort care after extubation.
[2024-01-11] MEDS: HYDROmorphone PCA 20MG/100ML IV PRN (11:15)
[2024-01-11] MEDS: GLYCOPYRROLATE 1 MG/5 ML VIAL SUBQ PRN (12:21)
[2024-01-11] MEDS: SODIUM CHLORIDE FLUSH 0.9% 10 ML SYRINGE IVP PRN (19:01)
--- NOTE | 2024-01-12 10:06 | PROVIDER PROGRESS NOTE ---
Subjective - Prog Note Date Prog Note Date: 01/12/24 Prog Note Time: 10:04 - Subjective Subjective: The pt is not responding. There is no purposeful movement. Objective - Vital Signs/Intake & Output Reviewed Vital Signs: Yes Vital Signs: Vital Signs x48h Temp Pulse Resp BP Pulse Ox 01/12/24 08:06 37.2 C 84 14 112/61 93 01/12/24 03:05 13 Intake & Output: Intake & Output 01/09/24 01/10/24 01/11/24 01/12/24 23:59 23:59 23:59 23:59 Intake Total 4224.225 2776.241 Output Total 114 591 345 Balance 4110.225 2185.241 -345 - Objective General Appearance: positive: No acute distress Eyes Bilateral: positive: Normal inspection Neck: positive: No JVD Respiratory: positive: No respiratory distress Cardiovascular: positive: Regular rate & rhythm Abdomen: positive: Nml bowel sounds, No distention Skin: positive: Color nml, No rash, Warm, Dry Extremities: positive: Nml appearance Neurologic/Psychiatric: positive: Other (No response) - Lab Results Fish Bones: 01/11/24 04:20 01/11/24 04:20 ABX Reporting Has patient been on IV antibiotics over the past 48 hours?: No Sepsis Event Note (H) - Evaluation Current Stage of Sepsis: Septic shock Possible source of Sepsis: positive: Pulmonary - Sepsis Criteria Sepsis Criteria: Recorded Temperature greater than 38.3C or Less than 36C, Recorded Heart Rate greater than 90 bpm, Recorded Respiratory Rate greater than 20, Respiratory: Increasing oxygen requirements, FOREST SCIENCE PROFESSOR: altered consciousness (unrelated to primary neuro pathology), SBP drop more than 40mHg, MAP less than 65 mmHg, SBP less than 90 mmHg, Renal: urine output less than 0.5ml/kg/hr for 2 hours or creatinine gr, Metabolic: lactate > 2 mmol/L Assessment/Plan - Problem List (1) Acute respiratory failure Impression: Stable at this time. Qualifiers: Respiratory failure complication: hypoxia Qualified Code(s): J96.01 - Acute respiratory failure with hypoxia (2) Type 2 [place] (myocardial infarction) Impression: From septic shock, pneumonia, hypoxemia. (3) Hyponatremia Impression: Resolved with IVF. (4) Hypomagnesemia Impression: Replaced. (5) Hypophosphatemia Impression: Replaced. (6) Transaminitis Impression: Stable. (7) Septic shock Impression: Improved and off levophed. (8) DEXTER (acute kidney injury) Impression: He has more UOP. Possibly his renal function is improving. (9) Pneumonia Impression: Off abx for comfort care. Qualifiers: Pneumonia type: due to unspecified organism Laterality: bilateral Lung location: lower lobe of lung Qualified Code(s): J18.9 - Pneumonia, unspecified organism (10) Thrombocytopenia Impression: Comfort care. No labs checked. (11) Goals of care, counseling/discussion Impression: Continue with comfort care. It looks like he suffered from anoxic brain injury and he doesn't show much of brain function at this time. This could be his new normal.
[2024-01-12] MEDS: CARBOXYMETHYLCELLULOSE OPHTH DROPS EACHEYE PRN (12:43)
[2024-01-12] MEDS: ONDANSETRON 4 MG/2 ML VIAL IVP PRN (12:43)
--- NOTE | 2024-01-13 12:55 | PROVIDER PROGRESS NOTE ---
Subjective - Prog Note Date Prog Note Date: 01/13/24 Prog Note Time: 12:53 - Subjective Pt reports feeling: No change Subjective: The pt is not responding. He has no purposeful movement. POLST for DNR, comfort measures only was completed with his . Objective - Vital Signs/Intake & Output Reviewed Vital Signs: Yes Vital Signs: Vital Signs x48h Resp 01/13/24 06:51 19 Intake & Output: Intake & Output 01/10/24 01/11/24 01/12/24 01/13/24 23:59 23:59 23:59 23:59 Intake Total 4224.225 2782.172 250 Output Total 768 195 3905 655 Balance 4110.225 2191.172 -790 -655 - Objective General Appearance: positive: Other (Unresponsive. Resting comfortably.) Cardiovascular: positive: Regular rate & rhythm - Lab Results Fish Bones: 01/11/24 04:20 01/11/24 04:20 ABX Reporting Has patient been on IV antibiotics over the past 48 hours?: No Sepsis Event Note (H) - Evaluation Current Stage of Sepsis: Septic shock Possible source of Sepsis: positive: Pulmonary - Sepsis Criteria Sepsis Criteria: Recorded Temperature greater than 38.3C or Less than 36C, Recorded Heart Rate greater than 90 bpm, Recorded Respiratory Rate greater than 20, Respiratory: Increasing oxygen requirements, SPECIAL LIBRARIAN: altered consciousness ( unrelated to primary neuro pathology), SBP drop more than 40mHg, MAP less than 65 mmHg, SBP less than 90 mmHg, Renal: urine output less than 0.5ml/kg/hr for 2 hours or creatinine gr, Metabolic: lactate > 2 mmol/L Assessment/Plan - Problem List (1) Acute respiratory failure Impression: On RA. Comfort care at this time. Qualifiers: Respiratory failure complication: hypoxia Qualified Code(s): J96.01 - Acute respiratory failure with hypoxia (2) Type 2 [place] (myocardial infarction) Impression: Comfort care at this time. (3) Hyponatremia Impression: Comfort care at this time. (4) Hypomagnesemia Impression: Comfort care at this time. (5) Hypophosphatemia Impression: Comfort care at this time. (6) Transaminitis Impression: Comfort care at this time. (7) Septic shock Impression: Comfort care at this time. Off pressor. (8) DEXTER (acute kidney injury) Impression: Comfort care at this time. (9) Pneumonia Impression: Comfort care at this time. Qualifiers: Pneumonia type: due to unspecified organism Laterality: bilateral Lung location: lower lobe of lung Qualified Code(s): J18.9 - Pneumonia, unspecified organism (10) Thrombocytopenia Impression: Comfort care at this time. (11) Goals of care, counseling/discussion Impression: Continue with comfort care. SW is looking into hospice house.
[2024-01-13 13:15] VITALS: BP 103/56; O2SAT 92
--- NOTE | 2024-01-14 07:51 | Discharge Plan ---
Discharge Plan Problem Reviewed?: Yes Disposition: 50 Hospice/Home DC/Xfer Condition: Critical Activity Restrictions: Bedrest Shower Restrictions: Yes (bed bound) Driving Restrictions: Yes (bed bound) Weight Bearing: Bed bound Health Concerns: History of Present Illness per Dr. Zamora's history: This is a 78 yo M with history of alcohol abuse, HTN, HLD, CAD, Pacemaker placement and skin cancer came after he was found unresponsive. since the pt is intubated and sedated the history was obtained from his and daughter. the pt drinks scotch sips every hour but his last drink was 4 days ago. Until last night the pt was doing okay with good PO intake. His saw him at 2 am and then she saw him this morning at 7:30am. Last night he had tremors but he was respoding appropriately at that time. She noticed loud breathing which can happen to him some time. This morning she wanted to wake him up but he was not responding. She noticed vomitus on his chest and mouth also. Since he was not responding EMS was called. When EMS got there. he was found to be hypotensive and his temp was 108F. The pt was having agonal breathing so he received IVF and then got intubated. ED course: Vital signs showed Temp of 41C, RR up to 26 and HR 115. Work up revealed WBC 11.7, INR 1.6, Na 134, BUN 40, Cr 2.5, Phos<1, Mg 1.3, T prerna 1.9, AST/ALT 408/296, Trop I 499.8, BNP 133, SG >1.3 and 3-5 hyaline casts on UA, pH 7.31, pO2 200, HCO3 17.9 and pCO2 37 on ABG. CXR showed possible pulmonary edema. CT chest showed basilar consolidation. CT head and CT abd/pel were unremarkable. The pt received tylenol 650mg AL, cefepime 2g IV, vancomycin per pharmacy, Mg sulfate 2g IV, sodium phos 21mmol, NS 2 liters, Propofol and levophed drip. Hospital Course: Mr. Andino was admitted to the intensive care unit. He was initially intubated and was able to be extubated. He was treated with broad-spectrum antibiotics with cefepime. He required pressor agents for hemodynamic support. Goals of care were discussed with family and the decision was made to initiate comfort care measures. Plan is for patient to transfer to hospice. Plan of Treatment: Comfort care and hospice Care Goals: Comfort Assessment: Mr. Batista was admitted to the intensive care unit with acute respiratory failure, pneumonia and septic shock. After discussion with family the decision was made to initiate comfort care measures. No Smoking: If you smoke, Please STOP! Call for help. Follow-up with: Dionicio Cunningham MD [Primary Care Provider] -
--- NOTE | 2024-01-14 08:05 | DISCHARGE SUMMARY ---
Discharge Summary Admit Date: 01/10/24 Discharge Date: 01/14/24 Discharging Provider: Rory Troy Primary Care Provider: Dionicio Cunningham Code Status: Do Not Attempt Resuscitation Condition at Discharge: Stable Discharge Disposition: 50 Hospice/Home DC/Xfer Discharge Facility Name: [facility] - DIAGNOSES Admission Diagnoses: (1) Acute respiratory failure (2) Type 2 [place] (myocardial infarction) (3) Hyponatremia (4) Hypomagnesemia (5) Hypophosphatemia (6) Transaminitis (7) Septic shock (8) DEXTER (acute kidney injury) (9) Pneumonia Discharge Diagnoses with Status of Each Condition: (1) Acute respiratory failure (2) Type 2 NJ (myocardial infarction) (3) Hyponatremia (4) Hypomagnesemia (5) Hypophosphatemia (6) Transaminitis (7) Septic shock (8) DEXTER (acute kidney injury) (9) Pneumonia - HPI History of Present Illness: This is a 78 yo M with history of alcohol abuse, HTN, HLD, CAD, Pacemaker placement and skin cancer came after he was found unresponsive. since the pt is intubated and sedated the history was obtained from his and daughter. the pt drinks scotch sips every hour but his last drink was 4 days ago. Until last night the pt was doing okay with good PO intake. His saw him at 2 am and then she saw him this morning at 7:30am. Last night he had tremors but he was respoding appropriately at that time. She noticed loud breathing which can happen to him some time. This morning she wanted to wake him up but he was not responding. She noticed vomitus on his chest and mouth also. Since he was not responding EMS was called. When EMS got there. he was found to be hypotensive and his temp was 108F. The pt was having agonal breathing so he received IVF and then got intubated. ED course: Vital signs showed Temp of 41C, RR up to 26 and HR 115. Work up revealed WBC 11.7, INR 1.6, Na 134, BUN 40, Cr 2.5, Phos<1, Mg 1.3, T prerna 1.9, AST/ALT 408/296, Trop I 499.8, BNP 133, SG >1.3 and 3-5 hyaline casts on UA, pH 7.31, pO2 200, HCO3 17.9 and pCO2 37 on ABG. CXR showed possible pulmonary edema. CT chest showed basilar consolidation. CT head and CT abd/pel were unremarkable. The pt received tylenol 650mg TN, cefepime 2g IV, vancomycin per pharmacy, Mg sulfate 2g IV, sodium phos 21mmol, NS 2 liters, Propofol and levophed drip. - HOSPITAL COURSE Hospital Course: Mr. Andino was admitted to the intensive care unit. He was initially intubated and was able to be extubated. He was treated with broad-spectrum antibiotics with cefepime. He required pressor agents for hemodynamic support. Goals of care were discussed with family and the decision was made to initiate comfort care measures. Plan is for patient to transfer to hospice. - ALLERGIES Allergies/Adverse Reactions: Allergies Allergy/AdvReac Type Severity Reaction Status Date / Time JEFFREY Inhibitors Allergy Intermediate Rash Verified 01/10/24 09:48 enalapril [Enalapril] Allergy Rash Verified 01/10/24 09:48 - MEDICATIONS Home Medications: Ambulatory Orders Medication Instructions Recorded Confirmed Acetaminophen [Tylenol] 650 mg TN Q4H PRN supp 01/14/24 Carboxymethylcellulose 1% Opht 1 drops EACHEYE QID PRN ml 01/14/24 [Refresh 1% Ophth Drops] Glycopyrrolate [Robinul] 0.2 mg SUBQ Q4H PRN ml 01/14/24 HYDROmorphone STRIPPER AND PRINTER 20MG/100ML 20 mg IV PRN PRN each 01/14/24 [Dilaudid STRIPPER AND PRINTER 20Mg/100Ml] Haloperidol Inj [Haldol Inj] 0.5 mg IVP Q2H PRN ml 01/14/24 LORazepam INJ [Ativan Inj (Vial)] 1 mg IVP Q6H PRN ml 01/14/24 Ondansetron Inj [Zofran Inj] 4 mg IVP Q6HR PRN ml 01/14/24 - PHYSICAL EXAM AT DISCHARGE General Appearance: positive: No acute distress Eyes Bilateral: positive: Conjunctivae nml Neck: positive: Thyroid nml, Trachea midline Respiratory: positive: Other (Coarse breath sounds no wheezing no crackles) Cardiovascular: positive: Other (Positive S1-S2 no extra heart sounds) Abdomen: positive: Other (Soft nontender nondistended positive bowel sounds) Skin: positive: No rash Extremities: positive: No pedal edema - LABS Result Diagrams: 01/11/24 04:20 01/11/24 04:20 - SEPSIS Current Stage of Sepsis: Septic shock Possible source of Sepsis: Pulmonary Sepsis Criteria: Recorded Temperature greater than 38.3C or Less than 36C, Recorded Heart Rate greater than 90 bpm, Recorded Respiratory Rate greater than 20, Respiratory: Increasing oxygen requirements, DRY WALL SPRAYER: altered consciousness (unrelated to primary neuro pathology), SBP drop more than 40mHg, MAP less than 65 mmHg, SBP less than 90 mmHg, Renal: urine output less than 0.5ml/kg/hr for 2 hours or creatinine gr, Metabolic: lactate > 2 mmol/L - FOLLOW UP Follow Up: Dionicio Cunningham MD - TIME SPENT Time Spent in Discharge (Minutes): 31
--- NOTE | 2024-01-14 08:13 | Discharge Plan ---
"Discharge Plan for SNF / NEIL - Discharge Plan And Transition Orders Problem Reviewed?: Yes Disposition: 50 Hospice/Home DC/Xfer Condition: Stable Allergies and Adverse Reactions: Allergies Allergy/AdvReac Type Severity Reaction Status Date / Time JEFFREY Inhibitors Allergy Intermediate Rash Verified 01/10/24 09:48 enalapril [Enalapril] Allergy Rash Verified 01/10/24 09:48 Health Concerns: History of Present Illness per Dr. Zamora's history: This is a 78 yo M with history of alcohol abuse, HTN, HLD, CAD, Pacemaker placement and skin cancer came after he was found unresponsive. since the pt is intubated and sedated the history was obtained from his and daughter. the pt drinks scotch sips every hour but his last drink was 4 days ago. Until last night the pt was doing okay with good PO intake. His saw him at 2 am and then she saw him this morning at 7:30am. Last night he had tremors but he was respoding appropriately at that time. She noticed loud breathing which can happen to him some time. This morning she wanted to wake him up but he was not responding. She noticed vomitus on his chest and mouth also. Since he was not responding EMS was called. When EMS got there. he was found to be hypotensive and his temp was 108F. The pt was having agonal breathing so he received IVF and then got intubated. ED course: Vital signs showed Temp of 41C, RR up to 26 and HR 115. Work up revealed WBC 11.7, INR 1.6, Na 134, BUN 40, Cr 2.5, Phos<1, Mg 1.3, T prerna 1.9, AST/ALT 408/296, Trop I 499.8, BNP 133, SG >1.3 and 3-5 hyaline casts on UA, pH 7.31, pO2 200, HCO3 17.9 and pCO2 37 on ABG. CXR showed possible pulmonary edema. CT chest showed basilar consolidation. CT head and CT abd/pel were unremarkable. The pt received tylenol 650mg [place], cefepime 2g IV, vancomycin per pharmacy, Mg sulfate 2g IV, sodium phos 21mmol, NS 2 liters, Propofol and levophed drip. Hospital Course: Mr. Andino was admitted to the intensive care unit. He was initially intubated and was able to be extubated. He was treated with broad-spectrum antibiotics with cefepime. He required pressor agents for hemodynamic support. Goals of care were discussed with family and the decision was made to initiate comfort care measures. Plan is for patient to transfer to hospice. Plan of Treatment: Comfort care and hospice Care Goals: Comfort Assessment: Mr. Batista was admitted to the intensive care unit with acute respiratory failure, pneumonia and septic shock. After discussion with family the decision was made to initiate comfort care measures. - SNF / NEIL Transition Orders Admit to (Facility): [facility] Discharge Diagnosis: (1) Acute respiratory failure (2) Type 2 [place] (myocardial infarction) (3) Hyponatremia (4) Hypomagnesemia (5) Hypophosphatemia (6) Transaminitis (7) Septic shock (8) DEXTER (acute kidney injury) (9) Pneumonia Medicare Certification Statement: I certify that Post Hospital assisted care is medically necessary on a continuing basis for any of the conditions for which she/he is receiving care during hospitalization. Notify PCP of admission and forward orders to primary provider for signature. Other Notification Orders: Call PCP immediately if patient develops dyspnea, chest pain/tightness or edema. House Bowel Program: Yes Additional Bowel Program Orders: If no BM after 2 days, nurse may give M.O.M. 30ml PO PRN and/or ducolax Supp 1 [place] and/or MIGUEL 250mg P.O., and/or senna 1-2 tabs PO. On day 3 nurse may give repeat above order until residents constipation is resolved. Annual Influenza Vaccine (between May 17 and December 14): Yes Two-step PPD per [facility] [phone] or approved exception documents: Yes Medication Orders: PLEASE REFER TO THE DISCHARGE MEDICATION LIST. - Diet Type: NPO May have monthly special meal: No - Therapies | Activity Weight Bearing: Bed bound Follow Up: Dionicio Cunningham"
== END 2024-01-14 11:50 | disposition hospice, home (50) | DRG 871 ==
LOC: EDUNIT# → SUPCPDRO 09:39 → ED 09:39 → ICU 14:40
PROVIDERS: ADMIT Internal Medicine; ATTEND Internal Medicine
PROC: 5A1935Z Respiratory Ventilation, Less than 24 Consecutive Hours (ICD-10-PCS; principal; 2024-01-10)
DX: A41.9 Sepsis, unspecified organism (principal); I21.A1 Myocardial infarction type 2; R65.21 Severe sepsis with septic shock; J18.9 Pneumonia, unspecified organism; I95.9 Hypotension, unspecified; R09.2 Respiratory arrest; J96.01 Acute respiratory failure with hypoxia; E87.1 Hypo-osmolality and hyponatremia; N17.9 Acute kidney failure, unspecified; R00.0 Tachycardia, unspecified; R51.9 Headache, unspecified; Z20.822 Contact with and (suspected) exposure to COVID-19; E83.42 Hypomagnesemia; E83.39 Other disorders of phosphorus metabolism; R74.01 Elevation of levels of liver transaminase levels; I10 Essential (primary) hypertension; I25.10 Atherosclerotic heart disease of native coronary artery without angina pectoris; E78.00 Pure hypercholesterolemia, unspecified; F10.10 Alcohol abuse, uncomplicated; D69.6 Thrombocytopenia, unspecified; Z51.5 Encounter for palliative care; Z66 Do not resuscitate; Z87.891 Personal history of nicotine dependence; Z90.49 Acquired absence of other specified parts of digestive tract; Z95.0 Presence of cardiac pacemaker; Z95.5 Presence of coronary angioplasty implant and graft
CPT/HCPCS: 36415; 36556; 36600; 51702; 70450; 71045; 71250; 74176; 80048; 80053; 80143; 80306; 81001; 82140; 82310; 82330; 82550; 82803; 83605; 83690; 83735; 83880; 84100; 84132; 84145; 84484; 85025; 85610; 87040; 87150; 87633; 93005; 94002; 94003; 96365; 96366; 96368; 96375; 99291; A9270; G0480; J2020; J3010; J3370; 80179; 81003; 82077; 87086